=== PATIENT | female | born 1950 | race Caucasian/White ===

== ENCOUNTER 2017-01-23 12:38 | Inpatient (IN) | payer MEDICARE ==
[~2017-01-23] VITALS: Ht 157.4 cm; Wt 107.8 kg
--- NOTE | ~2017-01-23 | PR ---
[place], [place] PROGRESS NOTE NAME: CARMELA COHEN V [facility] #: [id number] UNIT #: [id number] ROOM: 528 DOCTOR: CHIKI ERNANDEZ MD BIRTHDATE: [birth year] DOS: 01/25/2017 SUBJECTIVE: The patient has been admitted to the hospital with pain in her back, on the right side due to the ureteric colic. She is having a stone in her right ureter. She is still having some pain, but there is no nausea, no vomiting, no fever or chills. She is also having history of diabetes mellitus, hypertension, morbid obesity, and neuropathy. Past history of urolithiasis. Her urine culture and sensitivity today did not show any bacteria and her vitamin D level shows patient is having vitamin D deficiency, it is 10.9. I will start the patient on vitamin D 5000 units daily. OBJECTIVE: VITAL SIGNS: Her blood pressure is 128/68, pulse 69, respirations 20, temperature 97.6. HEART: Regular. CHEST: Clear. ABDOMEN: Does not show any tenderness. The patient is on oxygen and not in any distress. She is able to ambulate a little bit. She states she is feeling somewhat better, but still has some pain in the belly. We will be continuing with the present treatment. CHIKI ERNANDEZ MD CM:PNTRANS [id number] CHIKI ERNANDEZ MD 01/25/17 2315 interface
--- NOTE | ~2017-01-23 | PR ---
[place], [place] PROGRESS NOTE NAME: CARMELA COHEN V [facility] #: [id number] UNIT #: [id number] ROOM: 528 DOCTOR: CHIKI ERNANDEZ MD BIRTHDATE: [birth year] DOS: 01/24/2017 SUBJECTIVE: The patient has been admitted to the hospital with right renal colic and she is feeling a little bit better today, not that much pain, no nausea, no vomiting, but when she moves, she feels that she has got some pain in the back, mostly on the right side, and CAT scan of her abdomen showed that the patient has nonobstructive 9 mm stone in the right kidney. PAST MEDICAL HISTORY: The patient has history of diabetes mellitus, hypertension, morbid obesity, neuropathy, and past history of stones in the kidney. PAST SURGICAL HISTORY: Colonoscopy and hysterectomy. SOCIAL HISTORY: Noncontributory. She does not drink or smoke. The patient is not having any fever or chills. She had ultrasound of the gallbladder done, which showed that the patient does not have any gallstones or any obstruction, but she had a small renal cyst. Her CBC is essentially normal. Her lactic acid is 1.8. PHYSICAL EXAMINATION: VITAL SIGNS: Her blood pressure is 141/64, pulse 74, respirations 18, temperature 97.6. HEART: ____. LUNGS: Showing ____ wheeze. ABDOMEN: Does not show any tenderness. The patient is right now stable, not in any distress and we will continue on the medication the patient has been taking. No change for plan in her treatment. The patient is advised to drink a little more water, that may help to remove the stone. CHIKI ERNANDEZ MD CM:PNTRANS [id number] CHIKI ERNANDEZ MD 01/24/17 0939 interface
[~2017-01-23 12:38] MED LIST: ANTIVERT/2525 MG PO; CIPRO250 MG PO; CIPRO500 MG PO; DIFLUCAN150 MG PO; DOXYCYCLINE100 M3 PO; FLOMAX0.4 MG PO; HYDROCODONE BIT1 T11 PO; LABETALOL HCL100 MG PO; LEVEMIR10 ML SC; LISINOPRIL20 MG PO; MEDROL DOSEPAK4 MG PO; METFORMIN1000 MG PO; METFORMIN500 MG PO; NEURONTIN300 MG PO; NORVASC5 MG PO; PERCOCET 325 MG1 TA2 PO; PREDNISONE10 MG PO; PRILOSEC20 MG PO; PYRIDIUM200 MG PO; TRAD5TAB1 PO; TRAMADOL HCL50 MG PO; TRAMADOL50 MG PO; VIBRAMYCIN100 MG PO; ZOFRAN ODT4 MG SL
[2017-01-23 12:54] VITALS: BP 140/74
[2017-01-23 13:37] LABS: BASO % 0.4 % (0.0-1.0); EOS # 0.3 10*3/uL (0.0-0.4); HEMATOCRIT 42.9 % (37.0-47.0); HEMOGLOBIN 13.9 g/dl (12.0-16.0); LYMPH # 1.9 10*3/uL (1.3-4.4); LYMPH % 19.3 % (27.0-41.0); MEAN CELL VOLUME 92.5 fl (81.0-99.0); MEAN CORPUSCULAR HGB CONC 32.4 g/dl (33.0-37.0); MEAN PLATELET VOLUME 11.3 fl (9.6-12.3); MONO # 0.9 10*3/uL (0.1-1.0); MONO % 8.8 % (3.0-9.0); NEUT # 6.9 10*3/uL (2.3-7.9); NEUT % 68.2 % (47.0-73.0); PLATELET COUNT AUTOMATED 241 10*3/uL (130-400); RED BLOOD COUNT 4.64 10*6/uL (4.10-5.10); RED CELL DISTRI WIDTH 13.8 % (0-14.5); WHITE BLOOD COUNT 10.1 10*3/uL (4.8-10.8)
[2017-01-23 13:46] LABS: PROTHROMBIN TIME 10.4 SECONDS (9.0-12.4)
[2017-01-23 14:01] LABS: BILIRUBIN NEGATIVE (NEGATIVE); BLOOD NEGATIVE (NEGATIVE); CLARITY CLEAR (CLEAR); COLOR YELLOW (YELLOW); GLUCOSE 3+ (NEGATIVE); KETONE NEGATIVE (NEGATIVE); LEUKO ESTERASE NEGATIVE (NEGATIVE); NITRITE NEGATIVE (NEGATIVE); PH 5.5 (5.0-9.0); PROTEIN TRACE (NEGATIVE); UROBILINOGEN 0.2 E.U./dl (0.2-1.0)
[2017-01-23 14:06] LABS: ALBUMIN 3.8 gm/dl (3.1-4.5); ALKALINE PHOSPHATASE 87 U/L (45-117); BILIRUBIN, TOTAL 0.8 mg/dl (0.2-1.0); BUN 13 mg/dl (7-24); C-REACTIVE PROTEIN 1.44 MG/DL (0-0.3); CARBON DIOXIDE 28 mmol/L (21-32); CHLORIDE 105 mmol/L (98-107); CPK 108 U/L (26-192); EST GLOM FILT AFRICAN AMERICAN > 60 ml/min; GLUCOSE 291 mg/dL (65-99); MAGNESIUM 2.1 mg/dL (1.5-2.1); POTASSIUM 3.8 mmol/L (3.5-5.1); SGOT/AST 26 IU/L (3-35); SGPT/ALT 43 U/L (12-78); SODIUM 144 mmol/L (136-145); TOTAL PROTEIN 7.4 gm/dL (6.4-8.2)
[2017-01-23 14:07] LABS: TROPONIN I < 0.015 ng/ml (<0.045)
[2017-01-23 14:10] LABS: URINE REFLEX COMMENT YES (NO)
[2017-01-23 15:35] LABS: LA>2 REFLEX 2 HR DRAW NOW
[2017-01-23 15:36] VITALS: BP 156/84
[2017-01-23 16:51] VITALS: BP 155/83
[2017-01-23 17:49] VITALS: BP 145/87
[2017-01-23] MEDS ORDERED: FLOMAX0.4 MG PO (17:58)
[2017-01-23 18:00] VITALS: BP 145/87
[2017-01-24] VITALS: BP 141/64
[2017-01-24 07:08] LABS: BASO % 0.3 % (0.0-1.0); EOS # 0.3 10*3/uL (0.0-0.4); EOS % 2.9 % (1.0-4.0); HEMATOCRIT 41.4 % (37.0-47.0); HEMOGLOBIN 13.2 g/dl (12.0-16.0); LYMPH # 1.6 10*3/uL (1.3-4.4); LYMPH % 15.9 % (27.0-41.0); MEAN CELL VOLUME 93.9 fl (81.0-99.0); MEAN CORPUSCULAR HGB 29.9 pg (27.0-31.0); MEAN CORPUSCULAR HGB CONC 31.9 g/dl (33.0-37.0); MEAN PLATELET VOLUME 11.3 fl (9.6-12.3); MONO # 0.7 10*3/uL (0.1-1.0); MONO % 7.5 % (3.0-9.0); NEUT # 7.2 10*3/uL (2.3-7.9); NEUT % 73.1 % (47.0-73.0); PLATELET COUNT AUTOMATED 242 10*3/uL (130-400); RED BLOOD COUNT 4.41 10*6/uL (4.10-5.10); RED CELL DISTRI WIDTH 13.7 % (0-14.5); WHITE BLOOD COUNT 9.9 10*3/uL (4.8-10.8)
[2017-01-24 07:41] LABS: ALBUMIN 3.5 gm/dl (3.1-4.5); ALKALINE PHOSPHATASE 77 U/L (45-117); BILIRUBIN, TOTAL 0.9 mg/dl (0.2-1.0); BUN 13 mg/dl (7-24); CARBON DIOXIDE 29 mmol/L (21-32); CHLORIDE 105 mmol/L (98-107); EST GLOM FILT AFRICAN AMERICAN > 60 ml/min; GLUCOSE 205 mg/dL (65-99); MAGNESIUM 2.3 mg/dL (1.5-2.1); PHOSPHOROUS 3.4 mg/dL (2.5-4.9); POTASSIUM 3.7 mmol/L (3.5-5.1); PROTHROMBIN TIME 10.7 SECONDS (9.0-12.4); SGOT/AST 24 IU/L (3-35); SGPT/ALT 37 U/L (12-78); SODIUM 144 mmol/L (136-145); TOTAL PROTEIN 6.8 gm/dL (6.4-8.2)
[2017-01-24 08:00] VITALS: BP 140/70
[2017-01-24 12:00] VITALS: BP 135/71
[2017-01-24 16:00] VITALS: BP 129/70
[2017-01-24 20:00] VITALS: BP 138/77
[2017-01-25] VITALS: BP 128/68
[2017-01-25 08:23] VITALS: BP 146/80
[2017-01-25 12:58] VITALS: BP 132/60
[2017-01-25 16:00] VITALS: BP 145/72
[2017-01-25 20:00] VITALS: BP 145/79
[2017-01-26] VITALS: BP 146/79
[2017-01-26 06:26] LABS: BASO % 0.1 % (0.0-1.0); EOS # 0.3 10*3/uL (0.0-0.4); EOS % 3.3 % (1.0-4.0); HEMATOCRIT 38.8 % (37.0-47.0); HEMOGLOBIN 12.6 g/dl (12.0-16.0); LYMPH # 1.5 10*3/uL (1.3-4.4); LYMPH % 17.7 % (27.0-41.0); MEAN CORPUSCULAR HGB 30.2 pg (27.0-31.0); MEAN CORPUSCULAR HGB CONC 32.5 g/dl (33.0-37.0); MEAN PLATELET VOLUME 11.5 fl (9.6-12.3); MONO # 0.8 10*3/uL (0.1-1.0); MONO % 9.2 % (3.0-9.0); NEUT # 5.7 10*3/uL (2.3-7.9); NEUT % 69.2 % (47.0-73.0); PLATELET COUNT AUTOMATED 220 10*3/uL (130-400); RED BLOOD COUNT 4.17 10*6/uL (4.10-5.10); RED CELL DISTRI WIDTH 13.8 % (0-14.5); WHITE BLOOD COUNT 8.2 10*3/uL (4.8-10.8)
[2017-01-26 06:51] LABS: EST GLOM FILT AFRICAN AMERICAN > 60 ml/min
[2017-01-26 08:00] VITALS: BP 151/78
[2017-01-26 12:00] VITALS: BP 142/79
[2017-01-26] MEDS ORDERED: VITAMIN D5000 I3 PO (13:55)
== END 2017-01-26 14:37 | disposition home or self-care (01) | DRG 694 ==
LOC: ED 12:38 → EDHOLD 16:54 → 5E 16:54
PROVIDERS: Emergency Medicine; Internal Medicine
DX: N20.0 Calculus of kidney (principal); E87.2 Acidosis; E11.40 Type 2 diabetes mellitus with diabetic neuropathy, unspecified; K76.0 Fatty (change of) liver, not elsewhere classified; Z68.41 Body mass index [BMI] 40.0-44.9, adult; E66.01 Morbid (severe) obesity due to excess calories; E11.65 Type 2 diabetes mellitus with hyperglycemia; I10 Essential (primary) hypertension; N28.1 Cyst of kidney, acquired; Z90.710 Acquired absence of both cervix and uterus; Z87.891 Personal history of nicotine dependence; Z82.5 Family history of asthma and other chronic lower respiratory diseases; Z83.3 Family history of diabetes mellitus; Z88.6 Allergy status to analgesic agent; Z79.4 Long term (current) use of insulin; Z79.899 Other long term (current) drug therapy; Z79.84 Long term (current) use of oral hypoglycemic drugs

== ENCOUNTER → 2017-03-18 | Day surgery (SDC) | payer MEDICARE ==
[~2017-03-18] VITALS: Ht 157.4 cm; Wt 105.2 kg
[~2017-03-18] MED LIST changes: +VITAMIN D-32000 UNIT PO; +VITAMIN D5000 I3 PO
--- NOTE | ~2017-03-18 | O ---
[place], [place] OPERATIVE NOTE [id number] #: [id number] ROOM: DOCTOR: ISABELA GROSS MD BIRTHDATE: [birth year] DOS: 03/18/2017 PREOPERATIVE DIAGNOSIS: Cataract, left eye. POSTOPERATIVE DIAGNOSIS: Cataract, left eye. OPERATION: Extracapsular cataract extraction by phacoemulsification with posterior chamber intraocular lens implantation, left eye. ANESTHESIA: Monitored standby. OPERATIVE FINDINGS AND PROCEDURE: 2% Xylocaine topical anesthetic gel was applied to the eye in the preop area. The patient was taken to the operating room and prepped and draped in the standard fashion for sterile intraocular surgery. A time out procedure was performed verifying correct patient, correct site and corrects lens with Panda Gross M.D. The operating microscope was swung into position and the lid speculum was inserted. Using a Shivani paracentesis blade, a paracentesis was made through clear cornea. Viscoelastic was used to fill the anterior chamber. Using a metal keratome a 2.4 mm self-sealing clear corneal cataract incision was made temporally at the limbus. Using a pre-bent 25 gauge cystotome needle, a standard continuous curvilinear capsulorrhexis was performed. The anterior capsule was removed with forceps. The lens nucleus was hydrodissected and phacoemulsified in the posterior chamber. Cortical material was removed with the irrigation aspiration hand piece and the posterior capsule was then polished with a curet under irrigation. The posterior chamber and capsular bag were filled with viscoelastic. A posterior chamber intraocular lens manufactured by: Lito, Model #[id number], and 21.0 diopters in strength were then inserted into the posterior chamber and within the capsular bag using the lens cartridge and injector system. Viscoelastic was removed using the irrigation aspiration handpiece. The anterior chamber was filled with balanced salt solution through the paracentesis. Both the paracentesis site and cataract incisions were hydrated with BSS and verified to be water-tight and self-sealing. Cefuroxime 1 mg/0.1 mL was injected into the anterior chamber through the paracentesis site. The incision checked to be water-tight using a Weck-Nevin sponge. The integrity of the cataract wound and ocular tension were checked. Lid speculum and drapes were removed. The patient was transferred from the operating room to the recovery room in satisfactory condition. [place], [place] OPERATIVE NOTE NAME: CARMELA COHEN V UNIT #: [id number] ROOM: DOCTOR: ISABELA GROSS MD BIRTHDATE: [birth year] ISABELA GROSS MD CM:OPRECORD:OPERATIVE NOTE [phone] ISABELA GROSS MD 03/18/17 1052 interface
[2017-03-18 08:30] VITALS: BP 146/82
[2017-03-18 10:32] VITALS: BP 147/83
[2017-03-18 10:45] VITALS: BP 155/88
[2017-03-18 10:53] VITALS: BP 158/83
== END | disposition home or self-care (01) ==
LOC: SDC 03-11 10:15
DX: H26.9 Unspecified cataract (principal); I10 Essential (primary) hypertension; F32.9 Major depressive disorder, single episode, unspecified; E11.40 Type 2 diabetes mellitus with diabetic neuropathy, unspecified; Z90.710 Acquired absence of both cervix and uterus; Z82.49 Family history of ischemic heart disease and other diseases of the circulatory system; Z83.3 Family history of diabetes mellitus; Z82.3 Family history of stroke

== ENCOUNTER 2018-01-16 10:27 | Emergency (ER) | payer MEDICARE ==
[~2018-01-16] VITALS: Ht 157.4 cm; Wt 108.0 kg
[2018-01-16 10:45] LABS: BASO # 0.1 10*3/uL (0.0-0.1); BASO % 0.6 % (0.0-1.0); EOS # 0.4 10*3/uL (0.0-0.4); EOS % 3.9 % (1.0-4.0); HEMATOCRIT 43.8 % (37.0-47.0); HEMOGLOBIN 14.2 g/dl (12.0-16.0); LYMPH # 1.8 10*3/uL (1.3-4.4); LYMPH % 18.1 % (27.0-41.0); MEAN CELL VOLUME 92.8 fl (81.0-99.0); MEAN CORPUSCULAR HGB 30.1 pg (27.0-31.0); MEAN CORPUSCULAR HGB CONC 32.4 g/dl (33.0-37.0); MEAN PLATELET VOLUME 11.2 fl (9.6-12.3); MONO # 0.7 10*3/uL (0.1-1.0); MONO % 6.9 % (3.0-9.0); PLATELET COUNT AUTOMATED 244 10*3/uL (130-400); RED BLOOD COUNT 4.72 10*6/uL (4.10-5.10); RED CELL DISTRI WIDTH 13.4 % (0-14.5); WHITE BLOOD COUNT 10.1 10*3/uL (4.8-10.8)
[2018-01-16 11:02] LABS: ALBUMIN 3.8 gm/dl (3.1-4.5); ALKALINE PHOSPHATASE 71 U/L (45-117); BUN 10 mg/dl (7-24); CHLORIDE 101 mmol/L (98-107); CREATININE 0.94 mg/dL (0.55-1.02); POTASSIUM 3.6 mmol/L (3.5-5.1); SGOT/AST 30 IU/L (3-35); SGPT/ALT 48 U/L (12-78); SODIUM 139 mmol/L (136-145); TOTAL PROTEIN 7.4 gm/dL (6.4-8.2)
== END 2018-01-16 11:33 | disposition home or self-care (01) ==
LOC: ED 10:27
PROVIDERS: Nurse Practitioner Family
DX: E11.65 Type 2 diabetes mellitus with hyperglycemia (principal); I10 Essential (primary) hypertension; E66.01 Morbid (severe) obesity due to excess calories; Z87.891 Personal history of nicotine dependence; Z90.710 Acquired absence of both cervix and uterus; Z98.51 Tubal ligation status; Z90.711 Acquired absence of uterus with remaining cervical stump; Z79.899 Other long term (current) drug therapy; Z88.6 Allergy status to analgesic agent; Z88.8 Allergy status to other drugs, medicaments and biological substances; Z79.4 Long term (current) use of insulin

== ENCOUNTER → 2018-03-18 | Outpatient (CLI) | payer MEDICARE, MEDICAID ==
[~2018-03-18] MED LIST changes: +HUMALOG100 UNIT/2 SC
== END | disposition home or self-care (01) ==
LOC: MAMMO 07:26
DX: Z12.31 Encounter for screening mammogram for malignant neoplasm of breast (principal)

== ENCOUNTER 2018-03-28 19:56 | Emergency (ER) | payer MEDICARE, MEDICAID ==
[~2018-03-28] VITALS: Ht 157.4 cm; Wt 107.5 kg
[2018-03-28 20:25] LABS: BASO # 0.1 10*3/uL (0.0-0.1); BASO % 0.4 % (0.0-1.0); EOS # 0.4 10*3/uL (0.0-0.4); EOS % 2.7 % (1.0-4.0); HEMATOCRIT 43.2 % (37.0-47.0); HEMOGLOBIN 13.8 g/dl (12.0-16.0); LYMPH # 1.4 10*3/uL (1.3-4.4); LYMPH % 9.7 % (27.0-41.0); MEAN CELL VOLUME 92.5 fl (81.0-99.0); MEAN CORPUSCULAR HGB 29.6 pg (27.0-31.0); MEAN CORPUSCULAR HGB CONC 31.9 g/dl (33.0-37.0); MEAN PLATELET VOLUME 11.3 fl (9.6-12.3); MONO # 1.1 10*3/uL (0.1-1.0); MONO % 7.4 % (3.0-9.0); NEUT # 11.8 10*3/uL (2.3-7.9); NEUT % 79.5 % (47.0-73.0); PLATELET COUNT AUTOMATED 259 10*3/uL (130-400); RED BLOOD COUNT 4.67 10*6/uL (4.10-5.10); RED CELL DISTRI WIDTH 13.4 % (0-14.5); WHITE BLOOD COUNT 14.8 10*3/uL (4.8-10.8)
[2018-03-28 20:40] LABS: ALBUMIN 3.9 gm/dl (3.1-4.5); CREATININE 1.37 mg/dL (0.55-1.02); POTASSIUM 3.6 mmol/L (3.5-5.1); TOTAL PROTEIN 7.4 gm/dL (6.4-8.2)
[2018-03-28 21:16] LABS: BILIRUBIN NEGATIVE (NEGATIVE); BLOOD 3+ (NEGATIVE); CLARITY CLOUDY (CLEAR); COLOR YELLOW (YELLOW); GLUCOSE NEGATIVE (NEGATIVE); KETONE NEGATIVE (NEGATIVE); LEUKO ESTERASE 1+ (NEGATIVE); NITRITE NEGATIVE (NEGATIVE); UROBILINOGEN 0.2 E.U./dl (0.2-1.0)
[2018-03-28 21:22] LABS: BACTERIA TRACE; EPITHELIAL CELLS 0-2; RBC TNTC rbc/hpf (0-2); WBC TNTC wbc/hpf (0-5)
== END 2018-03-29 01:06 | disposition short-term general hospital (02) ==
LOC: ED 19:56
PROVIDERS: Student in an Organized Health Care Education/Training Program
DX: N20.9 Urinary calculus, unspecified (principal); E11.65 Type 2 diabetes mellitus with hyperglycemia; I10 Essential (primary) hypertension; Z79.4 Long term (current) use of insulin; Z79.899 Other long term (current) drug therapy; Z79.84 Long term (current) use of oral hypoglycemic drugs; Z90.710 Acquired absence of both cervix and uterus

== ENCOUNTER → 2018-04-20 | Outpatient (CLI) | payer MEDICARE, MEDICAID | END | disposition home or self-care (01) | LOC: RAD 09:24 | DX: N20.0 Calculus of kidney (principal); Z95.828 Presence of other vascular implants and grafts ==

== ENCOUNTER → 2018-05-11 | Outpatient (CLI) | payer MEDICARE, MEDICAID | END | disposition home or self-care (01) | LOC: RAD 09:02 | DX: N20.0 Calculus of kidney (principal) ==

== ENCOUNTER → 2018-05-18 | Outpatient (CLI) | payer MEDICARE, MEDICAID | END | disposition home or self-care (01) | LOC: US 03:35 | DX: N28.1 Cyst of kidney, acquired (principal); N20.0 Calculus of kidney; R31.9 Hematuria, unspecified ==

== ENCOUNTER 2018-06-29 07:50 | Emergency (ER) | payer MEDICARE, MEDICAID ==
[~2018-06-29] VITALS: Ht 157.4 cm; Wt 106.1 kg
[2018-06-29 08:28] LABS: BASO # 0.1 10*3/uL (0.0-0.1); BASO % 0.4 % (0.0-1.0); EOS # 0.3 10*3/uL (0.0-0.4); EOS % 2.2 % (1.0-4.0); HEMATOCRIT 41.7 % (37.0-47.0); HEMOGLOBIN 13.3 g/dl (12.0-16.0); LYMPH # 1.2 10*3/uL (1.3-4.4); LYMPH % 9.6 % (27.0-41.0); MEAN CELL VOLUME 92.1 fl (81.0-99.0); MEAN CORPUSCULAR HGB 29.4 pg (27.0-31.0); MEAN CORPUSCULAR HGB CONC 31.9 g/dl (33.0-37.0); MEAN PLATELET VOLUME 10.8 fl (9.6-12.3); MONO # 0.8 10*3/uL (0.1-1.0); MONO % 6.7 % (3.0-9.0); NEUT # 10.2 10*3/uL (2.3-7.9); NEUT % 80.8 % (47.0-73.0); PLATELET COUNT AUTOMATED 257 10*3/uL (130-400); RED BLOOD COUNT 4.53 10*6/uL (4.10-5.10); WHITE BLOOD COUNT 12.6 10*3/uL (4.8-10.8)
[2018-06-29 08:40] LABS: BUN 15 mg/dl (7-24); CHLORIDE 108 mmol/L (98-107); CREATININE 0.96 mg/dL (0.55-1.02); POTASSIUM 3.3 mmol/L (3.5-5.1); SODIUM 143 mmol/L (136-145)
[2018-06-29 09:00] LABS: BILIRUBIN NEGATIVE (NEGATIVE); BLOOD 1+ (NEGATIVE); CLARITY CLOUDY (CLEAR); COLOR YELLOW (YELLOW); GLUCOSE NEGATIVE (NEGATIVE); KETONE NEGATIVE (NEGATIVE); LEUKO ESTERASE 2+ (NEGATIVE); NITRITE POSITIVE (NEGATIVE); PH 5.5 (5.0-9.0); SPECIFIC GRAVITY 1.025 (1.005-1.030); UROBILINOGEN 0.2 E.U./dl (0.2-1.0)
[2018-06-29 09:10] LABS: BACTERIA 3+
[2018-06-29 09:11] LABS: WBC 51-100 wbc/hpf (0-5)
[2018-06-29 09:17] LABS: WAXY CAST 0-2
[2018-06-29] MEDS ORDERED: LEVAQUIN250 M1 PO (10:50)
== END 2018-06-29 12:37 | disposition home or self-care (01) ==
LOC: ED 07:50
PROVIDERS: Emergency Medicine; Podiatrist Foot & Ankle Surgery
DX: N39.0 Urinary tract infection, site not specified (principal); M25.561 Pain in right knee; M79.672 Pain in left foot; E11.40 Type 2 diabetes mellitus with diabetic neuropathy, unspecified; I10 Essential (primary) hypertension; E66.01 Morbid (severe) obesity due to excess calories; Z88.6 Allergy status to analgesic agent; Z91.048 Other nonmedicinal substance allergy status; Z88.8 Allergy status to other drugs, medicaments and biological substances; Z79.4 Long term (current) use of insulin; Z79.899 Other long term (current) drug therapy; Z87.442 Personal history of urinary calculi; Z90.710 Acquired absence of both cervix and uterus; Z87.891 Personal history of nicotine dependence

== ENCOUNTER → 2018-11-17 | Day surgery (SDC) | payer MEDICARE ==
[~2018-11-17] VITALS: Ht 158.7 cm; Wt 112.5 kg
[~2018-11-17] MED LIST changes: +LEVAQUIN250 M1 PO; -LEVEMIR10 ML SC; +LEVEMIR100 UNIT/1 SC
--- NOTE | ~2018-11-17 | O ---
[place], [place] OPERATIVE NOTE [id number] UN[facility] #: [id number] ROOM: DOCTOR: ISABELA GROSS MD BIRTHDATE: [birth year] DOS: 11/17/2018 PREOPERATIVE DIAGNOSIS: Cataract, right eye. POSTOPERATIVE DIAGNOSIS: Cataract, right eye. OPERATION: Extracapsular cataract extraction by phacoemulsification with posterior chamber intraocular lens implantation, right eye. INTRAOCULAR LENS: Lito, model #AU00T0, 20.5 diopters, right eye. ANESTHESIA: Monitored standby. OPERATIVE FINDINGS AND PROCEDURE: 2% Xylocaine topical anesthetic gel was applied to the eye in the preop area. The patient was taken to the operating room and prepped and draped in the standard fashion for sterile intraocular surgery. A time out procedure was performed verifying correct patient, correct site and corrects lens with Panda Gross M.D. The operating microscope was swung into position and the lid speculum was inserted. Using a Shivani paracentesis blade, a paracentesis was made through clear cornea. Viscoelastic was used to fill the anterior chamber. Using a metal keratome a 2.4 mm self-sealing clear corneal cataract incision was made temporally at the limbus. Using a pre-bent 25 gauge cystotome needle, a standard continuous curvilinear capsulorrhexis was performed. The anterior capsule was removed with forceps. The lens nucleus was hydrodissected and phacoemulsified in the posterior chamber. Cortical material was removed with the irrigation aspiration hand piece and the posterior capsule was then polished with a curet under irrigation. The posterior chamber and capsular bag were filled with viscoelastic. A posterior chamber intraocular lens manufactured by: Lito, Model #AU00T0, and 20.5 diopters in strength were then inserted into the posterior chamber and within the capsular bag using the lens cartridge and injector system. Viscoelastic was removed using the irrigation aspiration handpiece. The anterior chamber was filled with balanced salt solution through the paracentesis. Both the paracentesis site and cataract incisions were hydrated with BSS and verified to be water-tight and self-sealing. Cefuroxime 1 mg/0.1 mL was injected into the anterior chamber through the paracentesis site. The incision checked to be water-tight using a Weck-Nevin sponge. The integrity of the cataract wound and ocular tension were checked. Lid speculum and drapes were removed. The patient was transferred from the operating room to the recovery room in satisfactory condition. [place], [place] OPERATIVE NOTE NAME: CARMELA COHEN V UNIT #: [id number] ROOM: DOCTOR: ISABELA GROSS MD BIRTHDATE: [birth year] ISABELA GROSS MD CM:OPRECORD:OPERATIVE NOTE [id number] ISABELA GROSS MD 11/17/18 1104 interface
[2018-11-17 08:31] VITALS: BP 156/86
[2018-11-17 09:14] VITALS: BP 108/58
[2018-11-17 09:29] VITALS: BP 110/60
[2018-11-17 09:44] VITALS: BP 124/62
== END | disposition home or self-care (01) ==
LOC: SDC 11-11 09:30
DX: H25.811 Combined forms of age-related cataract, right eye (principal); I10 Essential (primary) hypertension; E10.9 Type 1 diabetes mellitus without complications; F32.9 Major depressive disorder, single episode, unspecified; E66.09 Other obesity due to excess calories; Z87.891 Personal history of nicotine dependence; Z79.4 Long term (current) use of insulin; Z90.711 Acquired absence of uterus with remaining cervical stump; Z98.42 Cataract extraction status, left eye; Z98.890 Other specified postprocedural states; Z88.8 Allergy status to other drugs, medicaments and biological substances; Z79.899 Other long term (current) drug therapy; Z87.442 Personal history of urinary calculi; Z68.41 Body mass index [BMI] 40.0-44.9, adult; Z82.49 Family history of ischemic heart disease and other diseases of the circulatory system; Z83.3 Family history of diabetes mellitus

== ENCOUNTER → 2018-12-20 | Outpatient (CLI) | payer MEDICARE ==
[~2018-12-20] MED LIST changes: +KEFLEX500 M1 PO; +NORCO 5-325 TA1 EACH PO; +ZOFRAN4 MG PO
[2018-12-20 08:57] LABS: BASO % 0.4 % (0.0-1.0); EOS # 0.4 10*3/uL (0.0-0.4); EOS % 3.7 % (1.0-4.0); HEMATOCRIT 44.4 % (37.0-47.0); HEMOGLOBIN 13.8 g/dl (12.0-16.0); LYMPH # 1.7 10*3/uL (1.3-4.4); LYMPH % 15.1 % (27.0-41.0); MEAN CELL VOLUME 94.7 fl (81.0-99.0); MEAN CORPUSCULAR HGB 29.4 pg (27.0-31.0); MEAN CORPUSCULAR HGB CONC 31.1 g/dl (33.0-37.0); MEAN PLATELET VOLUME 10.8 fl (9.6-12.3); MONO # 0.8 10*3/uL (0.1-1.0); MONO % 6.8 % (3.0-9.0); NEUT # 8.3 10*3/uL (2.3-7.9); NEUT % 73.6 % (47.0-73.0); PLATELET COUNT AUTOMATED 276 10*3/uL (130-400); RED BLOOD COUNT 4.69 10*6/uL (4.10-5.10); RED CELL DISTRI WIDTH 13.8 % (0-14.5); WHITE BLOOD COUNT 11.3 10*3/uL (4.8-10.8)
[2018-12-20 09:15] LABS: ALBUMIN 3.7 gm/dl (3.1-4.5); CREATININE 1.14 mg/dL (0.55-1.02); POTASSIUM 3.9 mmol/L (3.5-5.1); TOTAL PROTEIN 7.8 gm/dL (6.4-8.2)
== END | disposition home or self-care (01) ==
LOC: LAB 08:27 → CT 09:00
PROVIDERS: Internal Medicine Nephrology
DX: N20.0 Calculus of kidney (principal); K57.30 Diverticulosis of large intestine without perforation or abscess without bleeding; K76.0 Fatty (change of) liver, not elsewhere classified; N28.1 Cyst of kidney, acquired

== ENCOUNTER 2019-01-19 11:10 | Emergency (ER) | payer MEDICARE ==
[~2019-01-19] VITALS: Ht 157.4 cm; Wt 111.6 kg
--- NOTE | ~2019-01-19 | EKG ---
[place], [place] ELECTROCARDIOGRAM REPORT NAME: CARMELA COHEN V UNIT #: [id number] ROOM: DOCTOR: RUPESH DRAFT REPORT BIRTHDATE: [birth year] [facility] Test Date: 2019-01-19 Test Time: 11:28:07 Pat Name: CARMELA COHEN Department: Room: Gender: F Top Cleaner: : 1950 Requested By: DALLAS MCGRATH Order Number: [id number] Reading MD: Newton Urbina Measurements Intervals [place] Rate: 75 P: 22 KS: 135 QRS: 18 QRSD: 86 T: 33 QT: 368 QTc: 411 Interpretive Statements Sinus rhythm Atrial premature complex Low voltage, precordial leads Consider anterior infarct Baseline wander in lead(s) V1 No previous ECG available for comparison Electronically Signed On 01-21-2019 10:51:26 PDT by Newton Urbina CM:EKGRPT:ELECTROCARDIOGRAM REPORT [id number] DALLAS SAXENA DRAFT REPORT DALLAS MCGRATH DO
[~2019-01-19 11:10] MED LIST changes: -KEFLEX500 M1 PO; -NORCO 5-325 TA1 EACH PO; -ZOFRAN4 MG PO
[2019-01-19 11:50] LABS: BASO # 0.1 10*3/uL (0.0-0.1); BASO % 0.4 % (0.0-1.0); EOS # 0.4 10*3/uL (0.0-0.4); EOS % 3.6 % (1.0-4.0); HEMATOCRIT 40.9 % (37.0-47.0); LYMPH # 1.8 10*3/uL (1.3-4.4); LYMPH % 14.7 % (27.0-41.0); MEAN CELL VOLUME 91.7 fl (81.0-99.0); MEAN CORPUSCULAR HGB 29.1 pg (27.0-31.0); MEAN CORPUSCULAR HGB CONC 31.8 g/dl (33.0-37.0); MEAN PLATELET VOLUME 10.7 fl (9.6-12.3); MONO # 0.8 10*3/uL (0.1-1.0); MONO % 6.7 % (3.0-9.0); NEUT # 8.9 10*3/uL (2.3-7.9); NEUT % 74.2 % (47.0-73.0); PLATELET COUNT AUTOMATED 265 10*3/uL (130-400); RED BLOOD COUNT 4.46 10*6/uL (4.10-5.10); RED CELL DISTRI WIDTH 14.1 % (0-14.5)
[2019-01-19 11:59] LABS: ACT PARTIAL THROMBO TIME 23.9 SECONDS (20.8-31.5)
[2019-01-19 12:07] LABS: ALBUMIN 3.7 gm/dl (3.1-4.5); ALKALINE PHOSPHATASE 77 U/L (45-117); BUN 18 mg/dl (7-24); CHLORIDE 110 mmol/L (98-107); CREATININE 1.77 mg/dL (0.55-1.02); LIPASE 325 U/L (73-393); POTASSIUM 4.2 mmol/L (3.5-5.1); SGOT/AST 20 IU/L (3-35); SGPT/ALT 29 U/L (12-78); SODIUM 140 mmol/L (136-145); TOTAL PROTEIN 7.8 gm/dL (6.4-8.2)
[2019-01-19 12:08] LABS: TROPONIN I < 0.015 ng/ml (<0.045)
[2019-01-19 12:36] LABS: BILIRUBIN NEGATIVE (NEGATIVE); BLOOD 3+ (NEGATIVE); CLARITY CLOUDY (CLEAR); COLOR YELLOW (YELLOW); GLUCOSE NEGATIVE (NEGATIVE); KETONE NEGATIVE (NEGATIVE); LEUKO ESTERASE 3+ (NEGATIVE); NITRITE NEGATIVE (NEGATIVE); PH 5.5 (5.0-9.0); UROBILINOGEN 0.2 E.U./dl (0.2-1.0)
[2019-01-19 13:18] LABS: WBC TNTC wbc/hpf (0-5)
[2019-01-19 13:19] LABS: BACTERIA 2+; RBC TNTC rbc/hpf (0-2)
== END 2019-01-19 15:03 | disposition short-term general hospital (02) ==
LOC: ED 11:10
PROVIDERS: Emergency Medicine
DX: N17.9 Acute kidney failure, unspecified (principal); N13.2 Hydronephrosis with renal and ureteral calculous obstruction; E11.40 Type 2 diabetes mellitus with diabetic neuropathy, unspecified; I10 Essential (primary) hypertension; E66.01 Morbid (severe) obesity due to excess calories; Z87.442 Personal history of urinary calculi; Z91.048 Other nonmedicinal substance allergy status; Z88.8 Allergy status to other drugs, medicaments and biological substances; Z79.84 Long term (current) use of oral hypoglycemic drugs; Z79.4 Long term (current) use of insulin; Z90.710 Acquired absence of both cervix and uterus; Z87.891 Personal history of nicotine dependence

== ENCOUNTER → 2019-02-09 | Outpatient (CLI) | payer MEDICARE ==
[~2019-02-09] MED LIST changes: +KEFLEX500 M1 PO; +NORCO 5-325 TA1 EACH PO; +ZOFRAN4 MG PO
[2019-02-09 11:23] LABS: BASO % 0.3 % (0.0-1.0); EOS # 0.4 10*3/uL (0.0-0.4); EOS % 3.7 % (1.0-4.0); HEMATOCRIT 42.2 % (37.0-47.0); HEMOGLOBIN 13.1 g/dl (12.0-16.0); LYMPH # 1.8 10*3/uL (1.3-4.4); LYMPH % 19.1 % (27.0-41.0); MEAN CELL VOLUME 93.6 fl (81.0-99.0); MEAN PLATELET VOLUME 11.4 fl (9.6-12.3); MONO # 0.8 10*3/uL (0.1-1.0); MONO % 8.7 % (3.0-9.0); NEUT # 6.5 10*3/uL (2.3-7.9); NEUT % 67.9 % (47.0-73.0); PLATELET COUNT AUTOMATED 289 10*3/uL (130-400); RED BLOOD COUNT 4.51 10*6/uL (4.10-5.10); RED CELL DISTRI WIDTH 14.1 % (0-14.5); WHITE BLOOD COUNT 9.5 10*3/uL (4.8-10.8)
[2019-02-09 11:27] LABS: BILIRUBIN NEGATIVE (NEGATIVE); BLOOD 3+ (NEGATIVE); CLARITY SL CLOUDY (CLEAR); COLOR YELLOW (YELLOW); GLUCOSE NEGATIVE (NEGATIVE); KETONE NEGATIVE (NEGATIVE); LEUKO ESTERASE TRACE (NEGATIVE); NITRITE NEGATIVE (NEGATIVE); PH 5.5 (5.0-9.0); UROBILINOGEN 0.2 E.U./dl (0.2-1.0)
[2019-02-09 11:44] LABS: BACTERIA 1+; CALCIUM OXALATE CRYSTALS 1+; MUCOUS 1+; RBC 51-100 rbc/hpf (0-2); WBC 41-50 wbc/hpf (0-5)
[2019-02-09 11:52] LABS: ALBUMIN 3.8 gm/dl (3.1-4.5); CREATININE 1.2 mg/dL (0.55-1.02); POTASSIUM 4.1 mmol/L (3.5-5.1); THYROXINE (T4) TOTAL 8.6 ug/dl (4.8-13.9); TOTAL PROTEIN 7.4 gm/dL (6.4-8.2)
== END | disposition home or self-care (01) ==
LOC: LAB 10:37
PROVIDERS: Nurse Practitioner Family
DX: N20.0 Calculus of kidney (principal)

== ENCOUNTER → 2019-02-14 | Outpatient (CLI) | payer MEDICARE | END | disposition home or self-care (01) | LOC: CT 00:02 | DX: N20.0 Calculus of kidney (principal); N20.1 Calculus of ureter; N13.30 Unspecified hydronephrosis; R31.9 Hematuria, unspecified; M54.9 Dorsalgia, unspecified ==

== ENCOUNTER 2019-03-04 17:34 | Emergency (ER) | payer MEDICARE ==
[~2019-03-04] VITALS: Ht 157.4 cm; Wt 108.9 kg
[~2019-03-04 17:34] MED LIST changes: -KEFLEX500 M1 PO; -NORCO 5-325 TA1 EACH PO; -ZOFRAN4 MG PO
[2019-03-04 18:19] LABS: BILIRUBIN NEGATIVE (NEGATIVE); BLOOD 3+ (NEGATIVE); CLARITY CLOUDY (CLEAR); COLOR YELLOW (YELLOW); GLUCOSE NEGATIVE (NEGATIVE); KETONE NEGATIVE (NEGATIVE); LEUKO ESTERASE TRACE (NEGATIVE); NITRITE NEGATIVE (NEGATIVE); PH 5.5 (5.0-9.0); SPECIFIC GRAVITY 1.025 (1.005-1.030); UROBILINOGEN 0.2 E.U./dl (0.2-1.0)
[2019-03-04 18:24] LABS: RBC TNTC rbc/hpf (0-2)
[2019-03-04 18:28] LABS: BASO # 0.1 10*3/uL (0.0-0.1); BASO % 0.4 % (0.0-1.0); EOS # 0.3 10*3/uL (0.0-0.4); EOS % 2.5 % (1.0-4.0); HEMATOCRIT 41.9 % (37.0-47.0); HEMOGLOBIN 13.3 g/dl (12.0-16.0); LYMPH # 1.7 10*3/uL (1.3-4.4); LYMPH % 14.1 % (27.0-41.0); MEAN CELL VOLUME 92.3 fl (81.0-99.0); MEAN CORPUSCULAR HGB 29.3 pg (27.0-31.0); MEAN CORPUSCULAR HGB CONC 31.7 g/dl (33.0-37.0); MEAN PLATELET VOLUME 10.9 fl (9.6-12.3); MONO % 8.6 % (3.0-9.0); NEUT # 8.8 10*3/uL (2.3-7.9); PLATELET COUNT AUTOMATED 254 10*3/uL (130-400); RED BLOOD COUNT 4.54 10*6/uL (4.10-5.10); RED CELL DISTRI WIDTH 14.3 % (0-14.5); WHITE BLOOD COUNT 11.9 10*3/uL (4.8-10.8)
[2019-03-04 18:43] LABS: ALBUMIN 3.4 gm/dl (3.1-4.5); CREATININE 1.39 mg/dL (0.55-1.02); POTASSIUM 3.6 mmol/L (3.5-5.1); TOTAL PROTEIN 6.9 gm/dL (6.4-8.2)
[2019-03-04] MEDS ORDERED: ZOFRAN4 MG PO (20:17)
[2019-03-04] MEDS ORDERED: FLOMAX0.4 MG PO (20:17)
== END 2019-03-04 20:45 | disposition home or self-care (01) ==
LOC: ED 17:34
PROVIDERS: Physician Assistant
DX: N13.2 Hydronephrosis with renal and ureteral calculous obstruction (principal); Z79.899 Other long term (current) drug therapy; Z88.6 Allergy status to analgesic agent; Z87.442 Personal history of urinary calculi; Z87.891 Personal history of nicotine dependence

== ENCOUNTER → 2019-04-06 | Outpatient (CLI) | payer MEDICARE, OTHER ==
[~2019-04-06] MED LIST changes: +KEFLEX500 M1 PO; +NORCO 5-325 TA1 EACH PO; +ZOFRAN4 MG PO
== END | disposition home or self-care (01) ==
LOC: CT 11:30
DX: K76.0 Fatty (change of) liver, not elsewhere classified (principal); K57.30 Diverticulosis of large intestine without perforation or abscess without bleeding; N20.0 Calculus of kidney; R31.9 Hematuria, unspecified; N13.30 Unspecified hydronephrosis; I70.8 Atherosclerosis of other arteries

== ENCOUNTER 2019-05-13 14:52 | Emergency (ER) | payer MEDICARE ==
[~2019-05-13] VITALS: Ht 160 cm; Wt 109.8 kg
[~2019-05-13 14:52] MED LIST changes: -KEFLEX500 M1 PO; -NORCO 5-325 TA1 EACH PO
[2019-05-13 15:19] LABS: BASO % 0.2 % (0.0-1.0); EOS # 0.4 10*3/uL (0.0-0.4); EOS % 2.6 % (1.0-4.0); HEMATOCRIT 44.8 % (37.0-47.0); HEMOGLOBIN 14.3 g/dl (12.0-16.0); LYMPH % 14.2 % (27.0-41.0); MEAN CELL VOLUME 90.3 fl (81.0-99.0); MEAN CORPUSCULAR HGB 28.8 pg (27.0-31.0); MEAN CORPUSCULAR HGB CONC 31.9 g/dl (33.0-37.0); MEAN PLATELET VOLUME 12.3 fl (9.6-12.3); MONO # 0.9 10*3/uL (0.1-1.0); MONO % 6.3 % (3.0-9.0); NEUT # 10.9 10*3/uL (2.3-7.9); NEUT % 76.4 % (47.0-73.0); PLATELET COUNT AUTOMATED 196 10*3/uL (130-400); RED BLOOD COUNT 4.96 10*6/uL (4.10-5.10); RED CELL DISTRI WIDTH 14.4 % (0-14.5); WHITE BLOOD COUNT 14.3 10*3/uL (4.8-10.8)
[2019-05-13 16:05] LABS: BILIRUBIN 1+ (NEGATIVE); BLOOD 3+ (NEGATIVE); CLARITY CLOUDY (CLEAR); COLOR BROWN (YELLOW); GLUCOSE NEGATIVE (NEGATIVE); KETONE NEGATIVE (NEGATIVE); LEUKO ESTERASE TRACE (NEGATIVE); NITRITE NEGATIVE (NEGATIVE); PH 5.5 (5.0-9.0); SPECIFIC GRAVITY >= 1.030 (1.005-1.030); UROBILINOGEN 0.2 E.U./dl (0.2-1.0)
[2019-05-13 16:22] LABS: BACTERIA 1+; RBC TNTC rbc/hpf (0-2)
[2019-05-13 16:42] LABS: ALBUMIN 3.9 gm/dl (3.1-4.5); ALKALINE PHOSPHATASE 69 U/L (45-117); BUN 21 mg/dl (7-24); CHLORIDE 111 mmol/L (98-107); CREATININE 1.09 mg/dL (0.55-1.02); POTASSIUM 3.7 mmol/L (3.5-5.1); SGOT/AST 25 IU/L (3-35); SGPT/ALT 39 U/L (12-78); SODIUM 142 mmol/L (136-145); TOTAL PROTEIN 7.5 gm/dL (6.4-8.2)
[2019-05-13] MEDS ORDERED: NORCO 5-325 TA1 EACH PO (16:48)
[2019-05-13] MEDS ORDERED: KEFLEX500 M1 PO (16:48)
== END 2019-05-13 16:51 | disposition home or self-care (01) ==
LOC: ED 14:52
PROVIDERS: Physician Assistant
DX: N39.0 Urinary tract infection, site not specified (principal); R10.9 Unspecified abdominal pain; R11.2 Nausea with vomiting, unspecified; Z87.442 Personal history of urinary calculi; Z91.048 Other nonmedicinal substance allergy status; Z88.8 Allergy status to other drugs, medicaments and biological substances; Z79.899 Other long term (current) drug therapy; Z79.4 Long term (current) use of insulin; Z87.891 Personal history of nicotine dependence; Z90.710 Acquired absence of both cervix and uterus

== ENCOUNTER → 2019-07-29 | Outpatient (CLI) | payer MEDICARE ==
[~2019-07-29] MED LIST changes: +KEFLEX500 M1 PO; +NORCO 5-325 TA1 EACH PO
== END | disposition home or self-care (01) ==
LOC: CT 08:12
DX: M47.816 Spondylosis without myelopathy or radiculopathy, lumbar region (principal); I70.0 Atherosclerosis of aorta; I25.10 Atherosclerotic heart disease of native coronary artery without angina pectoris

== ENCOUNTER → 2019-08-03 | Outpatient (CLI) | payer MEDICARE | END | disposition home or self-care (01) | LOC: RAD 11:23 | DX: N20.0 Calculus of kidney (principal) ==

== ENCOUNTER → 2019-08-25 | Outpatient (CLI) | payer MEDICARE | END | disposition home or self-care (01) | LOC: RAD 13:15 | DX: N20.0 Calculus of kidney (principal) ==

== ENCOUNTER → 2019-10-28 | Outpatient (CLI) | payer MEDICARE ==
[2019-10-28 09:04] LABS: BASO % 0.4 % (0.0-1.0); EOS # 1.3 10*3/uL (0.0-0.4); HEMATOCRIT 44.2 % (37.0-47.0); HEMOGLOBIN 13.9 g/dl (12.0-16.0); LYMPH # 1.8 10*3/uL (1.3-4.4); MEAN CELL VOLUME 91.9 fl (81.0-99.0); MEAN CORPUSCULAR HGB 28.9 pg (27.0-31.0); MEAN CORPUSCULAR HGB CONC 31.4 g/dl (33.0-37.0); MEAN PLATELET VOLUME 10.9 fl (9.6-12.3); MONO # 0.8 10*3/uL (0.1-1.0); MONO % 6.9 % (3.0-9.0); NEUT # 7.5 10*3/uL (2.3-7.9); NEUT % 65.4 % (47.0-73.0); PLATELET COUNT AUTOMATED 249 10*3/uL (130-400); RED BLOOD COUNT 4.81 10*6/uL (4.10-5.10); RED CELL DISTRI WIDTH 14.6 % (0-14.5); WHITE BLOOD COUNT 11.4 10*3/uL (4.8-10.8)
[2019-10-28 09:07] LABS: BILIRUBIN NEGATIVE (NEGATIVE); BLOOD 3+ (NEGATIVE); CLARITY SL CLOUDY (CLEAR); COLOR YELLOW (YELLOW); GLUCOSE NEGATIVE (NEGATIVE); KETONE NEGATIVE (NEGATIVE); LEUKO ESTERASE NEGATIVE (NEGATIVE); NITRITE NEGATIVE (NEGATIVE); SPECIFIC GRAVITY 1.025 (1.005-1.030); UROBILINOGEN 0.2 E.U./dl (0.2-1.0)
[2019-10-28 09:33] LABS: ALBUMIN 3.3 gm/dl (3.1-4.5); CREATININE 1.1 mg/dL (0.55-1.02); POTASSIUM 3.3 mmol/L (3.5-5.1); THYROXINE (T4) TOTAL 8.8 ug/dl (4.8-13.9)
[2019-10-28 09:48] LABS: RBC TNTC rbc/hpf (0-2); WBC 0-2 wbc/hpf (0-5)
== END | disposition home or self-care (01) ==
LOC: LAB 08:32 → CT 09:00
PROVIDERS: Nurse Practitioner Family
DX: N20.0 Calculus of kidney (principal); R10.9 Unspecified abdominal pain; Z79.899 Other long term (current) drug therapy; Z90.49 Acquired absence of other specified parts of digestive tract

== ENCOUNTER 2019-12-02 08:32 | Emergency (ER) | payer MEDICARE ==
[~2019-12-02] VITALS: Ht 157.4 cm; Wt 108.9 kg
[~2019-12-02 08:32] MED LIST changes: -LABETALOL HCL100 MG PO; +LABETALOL HCL300 MG PO
[2019-12-02 09:31] LABS: BASO % 0.2 % (0.0-1.0); EOS # 0.4 10*3/uL (0.0-0.4); EOS % 2.8 % (1.0-4.0); HEMATOCRIT 47.1 % (37.0-47.0); HEMOGLOBIN 14.6 g/dl (12.0-16.0); LYMPH # 1.5 10*3/uL (1.3-4.4); LYMPH % 12.3 % (27.0-41.0); MEAN CELL VOLUME 91.3 fl (81.0-99.0); MEAN CORPUSCULAR HGB 28.3 pg (27.0-31.0); MEAN PLATELET VOLUME 11.3 fl (9.6-12.3); MONO # 0.9 10*3/uL (0.1-1.0); MONO % 6.9 % (3.0-9.0); NEUT # 9.6 10*3/uL (2.3-7.9); NEUT % 77.4 % (47.0-73.0); PLATELET COUNT AUTOMATED 266 10*3/uL (130-400); RED BLOOD COUNT 5.16 10*6/uL (4.10-5.10); RED CELL DISTRI WIDTH 14.6 % (0-14.5); WHITE BLOOD COUNT 12.4 10*3/uL (4.8-10.8)
[2019-12-02 09:43] LABS: CREATININE 1.17 mg/dL (0.55-1.02); POTASSIUM 3.7 mmol/L (3.5-5.1)
[2019-12-02 10:25] LABS: BILIRUBIN NEGATIVE (NEGATIVE); BLOOD 2+ (NEGATIVE); CLARITY SL CLOUDY (CLEAR); COLOR YELLOW (YELLOW); GLUCOSE NEGATIVE (NEGATIVE); KETONE NEGATIVE (NEGATIVE); LEUKO ESTERASE TRACE (NEGATIVE); NITRITE NEGATIVE (NEGATIVE); PH 6.5 (5.0-9.0); SPECIFIC GRAVITY 1.015 (1.005-1.030); UROBILINOGEN 0.2 E.U./dl (0.2-1.0)
[2019-12-02 10:32] LABS: BACTERIA 2+; RBC 31-40 rbc/hpf (0-2); WBC 21-30 wbc/hpf (0-5)
[2019-12-02 10:33] LABS: CALCIUM OXALATE CRYSTALS 1+
== END 2019-12-02 11:00 | disposition home or self-care (01) ==
LOC: ED 08:32
PROVIDERS: Internal Medicine
DX: N20.0 Calculus of kidney (principal); R11.2 Nausea with vomiting, unspecified; R06.02 Shortness of breath; E66.01 Morbid (severe) obesity due to excess calories; I10 Essential (primary) hypertension; E11.40 Type 2 diabetes mellitus with diabetic neuropathy, unspecified; Z87.891 Personal history of nicotine dependence; Z87.442 Personal history of urinary calculi; Z91.048 Other nonmedicinal substance allergy status; Z79.2 Long term (current) use of antibiotics; Z88.8 Allergy status to other drugs, medicaments and biological substances; Z79.899 Other long term (current) drug therapy; Z79.4 Long term (current) use of insulin; Z90.710 Acquired absence of both cervix and uterus

== ENCOUNTER 2019-12-05 17:03 | Inpatient (IN) | payer MEDICARE ==
[~2019-12-05] VITALS: Ht 158.7 cm; Wt 107.5 kg
[2019-12-05 17:05] VITALS: BP 160/77
[2019-12-05 18:17] LABS: BASO % 0.2 % (0.0-1.0); EOS # 0.5 10*3/uL (0.0-0.4); EOS % 2.8 % (1.0-4.0); HEMATOCRIT 47.1 % (37.0-47.0); HEMOGLOBIN 14.9 g/dl (12.0-16.0); LYMPH # 1.4 10*3/uL (1.3-4.4); LYMPH % 8.2 % (27.0-41.0); MEAN CORPUSCULAR HGB 29.1 pg (27.0-31.0); MEAN CORPUSCULAR HGB CONC 31.6 g/dl (33.0-37.0); MEAN PLATELET VOLUME 11.1 fl (9.6-12.3); MONO # 1.2 10*3/uL (0.1-1.0); MONO % 6.9 % (3.0-9.0); NEUT # 13.9 10*3/uL (2.3-7.9); NEUT % 81.4 % (47.0-73.0); PLATELET COUNT AUTOMATED 291 10*3/uL (130-400); RED BLOOD COUNT 5.12 10*6/uL (4.10-5.10); RED CELL DISTRI WIDTH 14.8 % (0-14.5); WHITE BLOOD COUNT 17.1 10*3/uL (4.8-10.8)
[2019-12-05 18:32] LABS: ACT PARTIAL THROMBO TIME 24.4 SECONDS (20.0-32.1)
[2019-12-05 18:39] LABS: ALBUMIN 3.7 gm/dl (3.1-4.5); ALKALINE PHOSPHATASE 85 U/L (45-117); BUN 18 mg/dl (7-24); CHLORIDE 108 mmol/L (98-107); CREATININE 1.08 mg/dL (0.55-1.02); LIPASE 213 U/L (73-393); POTASSIUM 3.5 mmol/L (3.5-5.1); SGOT/AST 17 IU/L (3-35); SGPT/ALT 24 U/L (12-78); SODIUM 142 mmol/L (136-145); TOTAL PROTEIN 7.6 gm/dL (6.4-8.2); TROPONIN I < 0.015 ng/ml (<0.045)
[2019-12-05 20:08] LABS: BILIRUBIN 1+ (NEGATIVE); CLARITY CLEAR (CLEAR); COLOR YELLOW (YELLOW); GLUCOSE NEGATIVE (NEGATIVE); KETONE 3+ (NEGATIVE)
[2019-12-05 20:09] LABS: BLOOD 3+ (NEGATIVE); LEUKO ESTERASE NEGATIVE (NEGATIVE); NITRITE NEGATIVE (NEGATIVE); SPECIFIC GRAVITY 1.025 (1.005-1.030); UROBILINOGEN 0.2 E.U./dl (0.2-1.0)
[2019-12-05 20:10] LABS: BACTERIA 1+; MUCOUS 1+; RBC 21-30 rbc/hpf (0-2); WBC 0-2 wbc/hpf (0-5)
[2019-12-05 21:50] VITALS: BP 146/76
--- NOTE | 2019-12-05 21:50 | NUR ---
Time: 2149 A 68 year old FEMALE admitted to 5E under services of DR. MARIEL ROSENBAUM,EMILY. Pt. arrived via STRETCHER from ER. Chief complaint: NAUSEA, VOMITING. KAREN NAM
--- NOTE | 2019-12-05 22:34 | NUR ---
HERE TO SEE PT.
--- NOTE | 2019-12-05 23:23 | NUR ---
PT STATES SHE KEPT MILK OF MAG DOWN AND WAS ABLE TO EAT MOST OF BOXED LUNCH PROVIDED. PT UNABLE TO DRINK PRUNE JUICE AND/OR WATER AT THIS TIME. ONLY WANTS TO EAT ICE. WILL MONITOR. CALL LIGHT IN REACH.
[2019-12-05] MEDS ORDERED: VITAMIN D32000 UNI1 PO (23:48)
[2019-12-05] MEDS ORDERED: NOVOLOG FL100 UNIT/2 SQ (23:51)
[2019-12-05] MEDS ORDERED: LANTUS SOL100 UNIT/1 SQ (23:51)
[2019-12-05] MEDS ORDERED: METFORMIN HYD1000 MG PO (23:52)
--- NOTE | 2019-12-05 23:53 | NUR ---
MED REC UP TO DATE PER PT RECALL.
--- NOTE | 2019-12-06 02:44 | NUR ---
PT AWAKE IN BED WATCHING TV. DENIES ANY NEEDS AT PRESENT TIME. WILL MONITOR. CALL LIGHT IN REACH.
--- NOTE | 2019-12-06 06:17 | NUR ---
MOM FROM LAST NIGHT NOT YET EFFECTIVE. PO DULCOLAX ADMINISTERED PER PRN ORDER TO HELP RELIEVE CONSTIPATION. HYPO BSX4 QUADS. PT DENIES PAIN. WILL MONITOR. CALL LIGHT IN REACH. IVF INFUSING.
[2019-12-06 07:10] LABS: BASO % 0.2 % (0.0-1.0); EOS # 0.6 10*3/uL (0.0-0.4); EOS % 4.8 % (1.0-4.0); HEMATOCRIT 40.8 % (37.0-47.0); HEMOGLOBIN 12.9 g/dl (12.0-16.0); LYMPH # 1.9 10*3/uL (1.3-4.4); LYMPH % 15.4 % (27.0-41.0); MEAN CELL VOLUME 92.3 fl (81.0-99.0); MEAN CORPUSCULAR HGB 29.2 pg (27.0-31.0); MEAN CORPUSCULAR HGB CONC 31.6 g/dl (33.0-37.0); MEAN PLATELET VOLUME 11.2 fl (9.6-12.3); MONO # 1.1 10*3/uL (0.1-1.0); MONO % 8.9 % (3.0-9.0); NEUT # 8.8 10*3/uL (2.3-7.9); NEUT % 70.2 % (47.0-73.0); PLATELET COUNT AUTOMATED 238 10*3/uL (130-400); RED BLOOD COUNT 4.42 10*6/uL (4.10-5.10); RED CELL DISTRI WIDTH 14.7 % (0-14.5); WHITE BLOOD COUNT 12.6 10*3/uL (4.8-10.8)
--- NOTE | 2019-12-06 07:20 | NUR ---
PT AMBULATORY IN ROOM TO SHOWER. RESTING BACK IN BED. RESP-EASY AND REGULAR AT THIS TIME. IVF INFUSING WITH NO PROBLEM. NO C/O AT THIS TIME. CALL LIGHT IN REACH. SEE SHIFT ASSESSMENT.
[2019-12-06 07:31] LABS: ALBUMIN 3.1 gm/dl (3.1-4.5); BUN 15 mg/dl (7-24); CHLORIDE 110 mmol/L (98-107); CHOLESTEROL 78 mg/dL (<200); PHOSPHOROUS 2.7 mg/dL (2.5-4.9); POTASSIUM 3.3 mmol/L (3.5-5.1); SGOT/AST 15 IU/L (3-35); SGPT/ALT 20 U/L (12-78); SODIUM 143 mmol/L (136-145)
[2019-12-06 07:39] LABS: ALKALINE PHOSPHATASE 68 U/L (45-117); HDL CHOLESTEROL 27 mg/dl (40-60); LDL CHOLESTEROL 36 mg/dL (9-159); TOTAL PROTEIN 6.2 gm/dL (6.4-8.2); TRIGLYCERIDES 76 mg/dl (<150); VLDL CHOLESTEROL 15 mg/dL (6-40)
[2019-12-06 08:00] VITALS: BP 139/59
--- NOTE | 2019-12-06 08:07 | NUR ---
CALLED DR. FLOYD AWARE HOME MEDICATIONS NEED ORDERED. ORDER TAKEN AND REVIEWED.
[2019-12-06 08:27] LABS: VITAMIN D, 25-HYDROXY 60.1 ng/mL (30-100)
--- NOTE | 2019-12-06 10:00 | NUR ---
RESTING IN BED. RESP-EASY AND REGULAR. IVF INFUSING WITH NO PROBLEM. NO C/O AT THIS TIME. CALL LIGHT IN REACH.
--- NOTE | 2019-12-06 10:30 | NUR ---
Christian Education Director in to talk to patient. Patient states lives at home with her boyfriend. There are 1 steps in the home. Physician: Dr. Hilton Ham Pharmacy: [facility] Home health services: none Patient's level of ADLs: INDEPENDENT Patient has working utilities: yes DME: none Follow-up physician's appointment after d/c: she prefers to make her own follow up appt on discharge Does patient want to access PORTAL?: no Discharge plan discussed with patient. She lives at home with her boyfriend. She is independent in her ADLs and ambulation. Discussed home health care services and she denies any home needs at this time. She states she has an appt with Dr. Humphreys on December 13 to evaluate her kidney stones. She states she has had them in the past. When medically stable she will be discharged to home. She states her boyfriend, Govind, will provide transportation on discharge. CONSUELO TUCKER
--- NOTE | 2019-12-06 11:55 | NUR ---
CALLED DR. GUTIERRES MADE AWARE CONSULT. NPO AFTER MIDNIGHT FOR EGD TOMORROW.
--- NOTE | 2019-12-06 11:58 | NUR ---
PT SITTING UP IN CHAIR. BSG-127, SEE EMAR. NO C/O AT THIS TIME. CALL LIGHT IN REACH.
[2019-12-06 12:00] VITALS: BP 138/72
--- NOTE | 2019-12-06 14:00 | NUR ---
RESTING IN BED. NO C/O AT THIS TIME. CALL LIGHT IN REACH. IVF INFUSING WITHNO PROBLEM. CALL BERTRAND VARGHESE.
[2019-12-06 16:00] VITALS: BP 127/73
--- NOTE | 2019-12-06 16:10 | NUR ---
RESTING IN BED. BSG-78, SEE EMAR. TOLERATED ROUTINE MED WITH NO PROBLEM. CALL LIGHT IN REACH. SEE SHIFT ASSESSMENT.
--- NOTE | 2019-12-06 17:30 | NUR ---
AVILA VAZQUEZ BED. TOLERATED ONE TAB MEDS. IVF INFUSING WTIH NO PROBLEM. CALL LIGHT IN REACH.
[2019-12-06 20:00] VITALS: BP 144/78
[2019-12-07] VITALS (8 sets, daily range): BP systolic 117–154; BP diastolic 64–98
[2019-12-07 06:22] LABS: BASO % 0.3 % (0.0-1.0); EOS # 0.6 10*3/uL (0.0-0.4); EOS % 5.8 % (1.0-4.0); HEMATOCRIT 41.3 % (37.0-47.0); HEMOGLOBIN 12.8 g/dl (12.0-16.0); LYMPH % 18.2 % (27.0-41.0); MEAN CORPUSCULAR HGB 28.8 pg (27.0-31.0); MEAN PLATELET VOLUME 11.7 fl (9.6-12.3); MONO % 9.3 % (3.0-9.0); NEUT # 7.1 10*3/uL (2.3-7.9); NEUT % 65.9 % (47.0-73.0); PLATELET COUNT AUTOMATED 244 10*3/uL (130-400); RED BLOOD COUNT 4.44 10*6/uL (4.10-5.10); RED CELL DISTRI WIDTH 14.9 % (0-14.5); WHITE BLOOD COUNT 10.8 10*3/uL (4.8-10.8)
--- NOTE | 2019-12-07 06:41 | NUR ---
PT STATES SHE PASSED A KIDNEY STONE TODAY. STATES SHE LOST IT SO SHE WAS UNABLE TO SHOW RN.
[2019-12-07 07:00] LABS: BUN 11 mg/dl (7-24); CHLORIDE 113 mmol/L (98-107); POTASSIUM 3.7 mmol/L (3.5-5.1); SODIUM 144 mmol/L (136-145)
[2019-12-07 07:02] LABS: CREATININE 0.99 mg/dL (0.55-1.02)
--- NOTE | 2019-12-07 09:00 | NUR ---
PT SITTING UP IN CHAIR. RESP-EASY AND REGULAR. NO C/O AT THIS TIME. CALL LIGHT IN REACH. SEE SHIFT ASSESSMENT.
--- NOTE | 2019-12-07 12:45 | NUR ---
PT SITTING UP IN RECLINER WITH VISITOR AT HER SIDE. RESP-EASY AND REGULAR. BSG-77, SEE EMAR. IVF INFUSING WITH NO PROBLEM. TOLERATED ROUTINE MED WITH NO PROBLEM. CALL LIGHT IN REACH.
--- NOTE | 2019-12-07 16:00 | NUR ---
SITTING UP IN RECLINER. RESP-EASY AND REGULAR. BSG-150, SEE EMAR. NO C/O AT THIS TIME. CALL LIGHT IN REACH.
[2019-12-08] VITALS: BP 152/71
[2019-12-08 06:49] LABS: BASO % 0.3 % (0.0-1.0); EOS # 1.1 10*3/uL (0.0-0.4); EOS % 9.9 % (1.0-4.0); HEMATOCRIT 42.2 % (37.0-47.0); HEMOGLOBIN 13.1 g/dl (12.0-16.0); LYMPH # 1.8 10*3/uL (1.3-4.4); LYMPH % 16.6 % (27.0-41.0); MEAN CELL VOLUME 92.5 fl (81.0-99.0); MEAN CORPUSCULAR HGB 28.7 pg (27.0-31.0); MEAN PLATELET VOLUME 11.5 fl (9.6-12.3); MONO # 0.8 10*3/uL (0.1-1.0); MONO % 7.4 % (3.0-9.0); NEUT # 7.2 10*3/uL (2.3-7.9); NEUT % 65.4 % (47.0-73.0); PLATELET COUNT AUTOMATED 258 10*3/uL (130-400); RED BLOOD COUNT 4.56 10*6/uL (4.10-5.10); RED CELL DISTRI WIDTH 14.9 % (0-14.5); WHITE BLOOD COUNT 11.1 10*3/uL (4.8-10.8)
[2019-12-08 07:24] LABS: CHLORIDE 113 mmol/L (98-107); POTASSIUM 3.6 mmol/L (3.5-5.1); SODIUM 145 mmol/L (136-145)
[2019-12-08 07:32] LABS: BUN 10 mg/dl (7-24)
[2019-12-08 08:00] VITALS: BP 148/82
--- NOTE | 2019-12-08 08:53 | NUR ---
PT RESTING IN BED/ NO DISTRESS NOTED WILL MONITOR
--- NOTE | 2019-12-08 09:00 | NUR ---
Heel Painter in to see patient. She is sitting up in her bedside chair without distress noted. No new needs or request at this time. She states she feels bloated and after eating has some discomfort. She denies any home needs. When medically stable she will be discharged to home.
--- NOTE | 2019-12-08 10:45 | NUR ---
PT MEDICATED WITH ZOFRAN FOR C/O NAUSEA/ INDIGESTION WILL MONITOR
[2019-12-08 12:00] VITALS: BP 133/55
--- NOTE | 2019-12-08 12:15 | NUR ---
PT STATES THAT AVEL HELPED WILL MONITOR
[2019-12-08 16:00] VITALS: BP 142/73
[2019-12-08 20:00] VITALS: BP 150/75
[2019-12-09] VITALS: BP 144/71
[2019-12-09 08:00] VITALS: BP 148/98
--- NOTE | 2019-12-09 08:00 | NUR ---
IN TO ROOM, PATIENT SITTING UP IN CHAIR, AWAKE, ALERT AND ORIENTED. NO STATED COMPLAINTS AT THIS TIME. DENIES PAIN. RESPIRATIONS ARE EASY AND REGULAR. EDUCATION PROVIDED REGARDING STRESS TEST. CHAIR IN LOCKED POSITION AND CALL LIGHT WITHIN REACH. WILL CONTINUE TO MONITOR.
--- NOTE | 2019-12-09 09:00 | NUR ---
Circular Shear Operator in to see patient. No new needs or request at this time. She denies any home needs. When medically stable she will be discharged to home.
--- NOTE | 2019-12-09 09:30 | NUR ---
PATIENT OFF OF FLOOR FOR STRESS TEST
--- NOTE | 2019-12-09 10:00 | NUR ---
INFORMED CONSENT OBTAINED FOR LEXISCAN NUCLEAR STRESS TEST WITH DR. FLOYD. RESTING EKG NSR WITH A RESTING HR OF 60 WITH BP OF 154/82. LUNGS CLEAR WITH SPO2 OF 96% ON ROOM AIR. PT COMPLETED A 1:00 LEXISCAN PROTOCOL RECEIVING LEXISCAN 0.4 MG IV OVER 10 SECONDS. HAD NO CHEST PAIN OR ANY EKG CHANGES. HAD C/O FEELING LIGHTHEADED AND NAUSEA THAT WAS RELIEVED IN RECOVERY. HAD A PEAK HR OF 95 WITH BP OF 126/72. LAST RECOVERY HR OF 87 WITH BP OF 130/70. AWAITING SCANNING IN STABLE CONDITION.
[2019-12-09] MEDS ORDERED: FLAGYL500 MG PO (10:12)
[2019-12-09] MEDS ORDERED: LIPITOR40 MG PO (10:13)
[2019-12-09] MEDS ORDERED: ASPIRIN ADULT L81 M1 PO (10:13)
[2019-12-09] MEDS ORDERED: OMEPRAZOLE40 MG PO (10:24)
[2019-12-09 13:00] VITALS: BP 137/71
[2019-12-09 16:00] VITALS: BP 146/71
[2019-12-09 20:00] VITALS: BP 150/61
--- NOTE | 2019-12-09 20:00 | NUR ---
PATIENT ASSESSMENT COMPLETED AT THIS TIME WITHOUT INCIDENT. PATIENT SEATED UP IN RECLINER AT THIS TIME AND DENIES ANY CHEST PAIN OR SHORTNESS OF BREATH, OR NEEDS AT THIS TIME. IV SITE ASSESSED AND INTACT AT THIS TIME. CALL LIGHT WITHIN REACH, WILL CONTINUE TO MONITOR.
--- NOTE | 2019-12-09 20:20 | NUR ---
24 HOUR CHART CHECK COMPLETED
[2019-12-10] VITALS: BP 125/70
[2019-12-10 08:00] VITALS: BP 138/76
[2019-12-10 12:00] VITALS: BP 123/54
[2019-12-10 16:00] VITALS: BP 114/83
--- NOTE | 2019-12-10 19:30 | NUR ---
DR. ROCA NOTIFIED OF CONSULT FOR ABNORMAL STRESS TEST FROM AT THIS TIME. NO ORDERS RECEIVED. HE STATED THAT HE WILL SEE THE PATIENT TOMORROW OR THURSDAY.
[2019-12-10 20:00] VITALS: BP 135/60
--- NOTE | 2019-12-10 20:05 | NUR ---
PATIENT ASSESSMENT COMPLETED WITHOUT INCIDENT. PATIENT DENIES ANY CHEST PAIN OR SHORTNESS OF BREATH AT THIS TIME. PATIENT DOES COMPLAIN OF ABDOMINAL DISCOMFORT GENERALIZED, ABDOMEN IS OBESE, GOOD BOWEL SOUNDS X4 QUADRANTS AND PATIENT STATED THAT SHE HAD A BM TODAY THAT WAS FORMED AND NORMAL FOR HER. IV SITE INTACT AND FUNCTIONAL. CALL LIGHT WITHIN REACH WILL CONTINUE TO MONITOR.
[2019-12-11] VITALS: BP 123/62
[2019-12-11 06:56] LABS: CREATININE 1.11 mg/dL (0.55-1.02)
[2019-12-11 07:16] LABS: BASO % 0.3 % (0.0-1.0); EOS # 0.9 10*3/uL (0.0-0.4); EOS % 7.4 % (1.0-4.0); HEMATOCRIT 44.8 % (37.0-47.0); HEMOGLOBIN 13.7 g/dl (12.0-16.0); LYMPH # 1.8 10*3/uL (1.3-4.4); LYMPH % 14.7 % (27.0-41.0); MEAN CELL VOLUME 92.6 fl (81.0-99.0); MEAN CORPUSCULAR HGB 28.3 pg (27.0-31.0); MEAN CORPUSCULAR HGB CONC 30.6 g/dl (33.0-37.0); MEAN PLATELET VOLUME 11.7 fl (9.6-12.3); MONO # 0.8 10*3/uL (0.1-1.0); MONO % 6.3 % (3.0-9.0); NEUT # 8.8 10*3/uL (2.3-7.9); PLATELET COUNT AUTOMATED 259 10*3/uL (130-400); RED BLOOD COUNT 4.84 10*6/uL (4.10-5.10); RED CELL DISTRI WIDTH 14.8 % (0-14.5); WHITE BLOOD COUNT 12.4 10*3/uL (4.8-10.8)
[2019-12-11 08:00] VITALS: BP 149/73
--- NOTE | 2019-12-11 09:27 | NUR ---
DR. ROCA WAS IN TO SEE PATIENT THIS AM. ARRANGEMENTS TO BE MADE FOR LEFT HEART CATH AT [facility] ON Thursday12/13/19 AND PATIENT TO KEEP HER 12/14/19 APPOINTMENT W/NEPHROLOGY FOR KIDNEY STONES. DR. FLOYD NOTIFIED. DR. ROCA'S OFFICE (TAMI BRIDGES) TO BE CONTACTED FOR ARRANGEMENTS.
[2019-12-11 12:00] VITALS: BP 149/74
[2019-12-11 16:00] VITALS: BP 138/71
[2019-12-11 20:00] VITALS: BP 134/65
[2019-12-12] VITALS: BP 140/68
--- NOTE | 2019-12-12 07:30 | NUR ---
IN PT ROOM AT THIS TIME AND SHE HAS NO COMPLAINTS, SHE ONLY WANTS TO KNOW WHEN/WHERE SHE IS GOING FOR HER HEART CATH TOMORROW. I WILL BE CALLING [facility] SOON TO SCHEDULE AN APPOINTMENT AND WILL LET HER KNOW ALL OF THE INFORMATION AFTER I CALL. CALL LIGHT WITHIN REACH, WILL CONTINUE TO MONITOR
[2019-12-12 08:00] VITALS: BP 139/85
--- NOTE | 2019-12-12 09:00 | NUR ---
Senior Tax Specialist in to see patient. No new needs or request at this time. She denies any home needs. Plan is to discharge patient tomorrow to [place].
--- NOTE | 2019-12-12 09:07 | NUR ---
CALLED AND LEFT MESSAGE FOR DR ROCA NURSE TO CALL BACK TO BE ABLE TO SCHEDULE AN APPOINTMENT
--- NOTE | 2019-12-12 10:43 | NUR ---
CALLED AND SPOKE TO ROOF SLATER FOR MAKING HEART CATH APPOINTMENT, SHE IS GOING TO RELAY THE MESSAGE TO THE NURSE AND HAVE HER CALL BACK
--- NOTE | 2019-12-12 10:51 | NUR ---
REPORT CALLED TO CYRUS THE NURSE AT [facility], SHE WANTS PT INFORMATION FAXED TO HER SO SHE CAN WORK ON GETTING AN APPOINTMENT MADE
--- NOTE | 2019-12-12 11:40 | NUR ---
Shift chart check completed.
[2019-12-12 12:00] VITALS: BP 134/69
--- NOTE | 2019-12-12 15:15 | NUR ---
CALLED DR CHIU AND HE STATES TO PUT THE PATIENT ON THE CHIEF TECHNOLOGY OFFICER AND TO HOLD HER LOVENOX
[2019-12-12 16:00] VITALS: BP 125/61
--- NOTE | 2019-12-12 16:26 | NUR ---
GAVE REPORT TO NURSE AT [facility] FOR THE PATIENT.
[2019-12-12 20:00] VITALS: BP 125/72
[2019-12-13] VITALS: BP 148/69
--- NOTE | 2019-12-13 01:41 | NUR ---
24 HOUR CHART CHECK COMPLETE.
--- NOTE | 2019-12-13 08:09 | NUR ---
Discharge instructions reviewed with patient/family. Patient receptive and verbalizes understanding. Follow-up care arranged. Written instructions given to patient/family. PERLA JARRETT
== END 2019-12-13 08:09 | disposition short-term general hospital (02) | DRG 392 ==
LOC: ED 17:03 → EDHOLD 21:08 → 5E 21:08
PROVIDERS: Internal Medicine Nephrology; Physician Assistant; Student in an Organized Health Care Education/Training Program; ADMIT Internal Medicine
DX: K29.70 Gastritis, unspecified, without bleeding (principal); N20.1 Calculus of ureter; N30.01 Acute cystitis with hematuria; Z68.41 Body mass index [BMI] 40.0-44.9, adult; Z79.899 Other long term (current) drug therapy; K52.9 Noninfective gastroenteritis and colitis, unspecified; K21.9 Gastro-esophageal reflux disease without esophagitis; N20.0 Calculus of kidney; K59.00 Constipation, unspecified; D72.9 Disorder of white blood cells, unspecified; D72.810 Lymphocytopenia; R82.2 Biliuria; E66.01 Morbid (severe) obesity due to excess calories; E11.40 Type 2 diabetes mellitus with diabetic neuropathy, unspecified; E11.22 Type 2 diabetes mellitus with diabetic chronic kidney disease; I12.9 Hypertensive chronic kidney disease with stage 1 through stage 4 chronic kidney disease, or unspecified chronic kidney disease; N18.3 Chronic kidney disease, stage 3 (moderate); I25.9 Chronic ischemic heart disease, unspecified; K76.0 Fatty (change of) liver, not elsewhere classified; R16.1 Splenomegaly, not elsewhere classified; E53.8 Deficiency of other specified B group vitamins; E87.6 Hypokalemia; R07.2 Precordial pain; E78.5 Hyperlipidemia, unspecified; Z79.4 Long term (current) use of insulin; Z82.49 Family history of ischemic heart disease and other diseases of the circulatory system; Z87.440 Personal history of urinary (tract) infections; Z88.6 Allergy status to analgesic agent; Z88.8 Allergy status to other drugs, medicaments and biological substances; Z91.09 Other allergy status, other than to drugs and biological substances; Z90.710 Acquired absence of both cervix and uterus; Z87.891 Personal history of nicotine dependence; Z83.3 Family history of diabetes mellitus; Z82.3 Family history of stroke; Z84.89 Family history of other specified conditions; Z87.442 Personal history of urinary calculi

== ENCOUNTER → 2019-12-26 | Outpatient (CLI) | payer MEDICARE ==
[~2019-12-26] MED LIST changes: +ASPIRIN ADULT L81 M1 PO; +FLAGYL500 MG PO; +LANTUS SOL100 UNIT/1 SQ; +LIPITOR40 MG PO; +METFORMIN HYD1000 MG PO; +NOVOLOG FL100 UNIT/2 SQ; +OMEPRAZOLE40 MG PO; +VITAMIN D32000 UNI1 PO
== END | disposition home or self-care (01) ==
LOC: CT 12-23 11:00
DX: N20.0 Calculus of kidney (principal); N28.1 Cyst of kidney, acquired; K57.30 Diverticulosis of large intestine without perforation or abscess without bleeding; M47.815 Spondylosis without myelopathy or radiculopathy, thoracolumbar region; Z90.710 Acquired absence of both cervix and uterus

== ENCOUNTER → 2020-03-09 | Outpatient (CLI) | payer MEDICARE | END | disposition home or self-care (01) | LOC: RAD 14:35 | DX: N20.0 Calculus of kidney (principal) ==

== ENCOUNTER 2020-05-22 10:00 | Inpatient (IN) | payer MEDICARE, MEDICAID ==
[~2020-05-22] VITALS: Ht 158.7 cm; Wt 108.0 kg
[2020-05-22 10:05] VITALS: BP 154/90
[2020-05-22 11:11] LABS: BASO % 0.1 % (0.0-1.0); EOS # 0.2 10*3/uL (0.0-0.4); EOS % 1.4 % (1.0-4.0); HEMATOCRIT 48.6 % (37.0-47.0); LYMPH # 1.3 10*3/uL (1.3-4.4); LYMPH % 7.9 % (27.0-41.0); MEAN CELL VOLUME 90.3 fl (81.0-99.0); MEAN CORPUSCULAR HGB 28.6 pg (27.0-31.0); MEAN CORPUSCULAR HGB CONC 31.7 g/dl (33.0-37.0); MEAN PLATELET VOLUME 10.7 fl (9.6-12.3); MONO # 0.9 10*3/uL (0.1-1.0); MONO % 5.5 % (3.0-9.0); NEUT # 13.5 10*3/uL (2.3-7.9); NEUT % 84.7 % (47.0-73.0); PLATELET COUNT AUTOMATED 269 10*3/uL (130-400); RED BLOOD COUNT 5.38 10*6/uL (4.10-5.10); RED CELL DISTRI WIDTH 13.9 % (0-14.5); WHITE BLOOD COUNT 15.9 10*3/uL (4.8-10.8)
[2020-05-22 11:33] LABS: ALBUMIN 3.7 gm/dl (3.1-4.5); CREATININE 1.23 mg/dL (0.55-1.02); POTASSIUM 3.9 mmol/L (3.5-5.1)
[2020-05-22 12:34] LABS: CLARITY SL CLOUDY (CLEAR); COLOR YELLOW (YELLOW)
[2020-05-22 12:35] LABS: BILIRUBIN NEGATIVE (NEGATIVE); BLOOD TRACE-INTACT (NEGATIVE); GLUCOSE NEGATIVE (NEGATIVE); KETONE NEGATIVE (NEGATIVE); NITRITE NEGATIVE (NEGATIVE); UROBILINOGEN 0.2 E.U./dl (0.2-1.0)
[2020-05-22 12:36] LABS: LEUKO ESTERASE TRACE (NEGATIVE)
[2020-05-22 13:05] LABS: BACTERIA 2+; URIC ACID CRYSTALS 2+
--- NOTE | 2020-05-22 18:00 | NUR ---
UNABLE TO TAKE PT UPSTAIRS, PT IN ULTRASOUND.
[2020-05-22 18:20] VITALS: BP 151/83
--- NOTE | 2020-05-22 18:20 | NUR ---
Time: 1819 A 69 year old FEMALE admitted to 5E under services of DR. MARIEL ROSENBAUM,[facility]. Pt. arrived via stretcher from ER. Chief complaint: NAUSEA/VOMITING. TELE MONITOR APPLIED ORDER RECEIVED CRISTIANA HATCH
[2020-05-22] MEDS ORDERED: FUROSEMIDE40 MG PO (18:26)
[2020-05-22] MEDS ORDERED: TRULICITY1.5 MG/0.5 SC (18:29)
[2020-05-22] MEDS ORDERED: LOSARTAN POTASS50 M1 PO (18:30)
--- NOTE | 2020-05-22 18:36 | NUR ---
MED REC UPDATED VIA LIST FROM HOME AND CLAIM HISTORY.
--- NOTE | 2020-05-22 19:03 | NUR ---
DR. SINGH AWARE OF CONSULT. ORDER FOR EGD TOMORROW. NPO MIDNIGHT.
[2020-05-22 20:00] VITALS: BP 151/83
--- NOTE | 2020-05-22 20:43 | NUR ---
NOTIFIED DR. SINGH AT THIS TIME OF PATIENTS GALLBLADDER ULTRASOUND. HE STATED HE WOULD STILL LIKE TO SCOPE THE PATIENT TOMORROW. AND THEN POSSIBLY TAKE HER BACK FOR SURGERY ON THURSDAY IF NEEDED
[2020-05-23] VITALS (9 sets, daily range): BP systolic 133–150; BP diastolic 7–77
--- NOTE | 2020-05-23 03:41 | NUR ---
PATIENT SLEEPING, NO DISTRESS NOTED. BREATHING IS EASY AND REGULAR. IV FLUIDS RUNNING PER ORDER. CALL LIGHT WITHIN REACH, WILL MONITOR
--- NOTE | 2020-05-23 03:47 | NUR ---
24 HR chart check completed.
--- NOTE | 2020-05-23 06:40 | NUR ---
PATIENT TO SURGERY AT THIS TIME
[2020-05-23 07:01] LABS: BASO % 0.2 % (0.0-1.0); EOS # 0.4 10*3/uL (0.0-0.4); EOS % 4.2 % (1.0-4.0); HEMATOCRIT 43.8 % (37.0-47.0); LYMPH # 2.1 10*3/uL (1.3-4.4); LYMPH % 20.8 % (27.0-41.0); MEAN CELL VOLUME 91.8 fl (81.0-99.0); MEAN CORPUSCULAR HGB 28.5 pg (27.0-31.0); MEAN CORPUSCULAR HGB CONC 31.1 g/dl (33.0-37.0); MEAN PLATELET VOLUME 10.6 fl (9.6-12.3); MONO # 0.7 10*3/uL (0.1-1.0); MONO % 7.3 % (3.0-9.0); NEUT # 6.8 10*3/uL (2.3-7.9); NEUT % 67.3 % (47.0-73.0); PLATELET COUNT AUTOMATED 263 10*3/uL (130-400); RED BLOOD COUNT 4.77 10*6/uL (4.10-5.10); RED CELL DISTRI WIDTH 14.1 % (0-14.5); WHITE BLOOD COUNT 10.1 10*3/uL (4.8-10.8)
[2020-05-23 07:13] LABS: ACT PARTIAL THROMBO TIME 26.5 SECONDS (20.0-32.1); INTERNATIONAL NORM RATIO 1.1 (2.0-3.5)
[2020-05-23 07:17] LABS: ALBUMIN 3.3 gm/dl (3.1-4.5); CREATININE 1.2 mg/dL (0.55-1.02); POTASSIUM 3.9 mmol/L (3.5-5.1); TOTAL PROTEIN 6.7 gm/dL (6.4-8.2)
[2020-05-23 07:19] LABS: FREE T4 0.89 ng/dl (0.76-1.46)
[2020-05-23 07:23] LABS: THYROID STIM HORMONE (HS) 1.03 uIU/ml (0.358-4.75)
--- NOTE | 2020-05-23 07:46 | NUR ---
BLOOD SUGAR TAKEN FROM [facility]. BS 141
[2020-05-23 07:50] LABS: VITAMIN D, 25-HYDROXY 50.3 ng/mL (30-100)
--- NOTE | 2020-05-23 08:00 | NUR ---
PT REMAINS IN SURGERY
--- NOTE | 2020-05-23 09:00 | NUR ---
Senior Materials Planner in to talk to patient. Patient states lives at home with her boyfriend. There are 1 steps in the home. Physician: Dr. Hilton Ham Pharmacy: [facility] Home health services: none Patient's level of ADLs: INDEPENDENT Patient has working utilities: yes DME: none Follow-up physician's appointment after d/c: she prefers to make her own follow up appt upon discharge Does patient want to access PORTAL?: no Discharge plan discussed with patient. She is sitting up in her bedside chair. She lives at home with her boyfriend. She is independent in her ADLs and ambulation. Discussed home health care services and she declines. CM will continue to follow for any discharge planning needs. When medically stable she will be discharged to home. She states her boyfriend, Govind, will provide transportation on discharge. CONSUELO TUCKER
--- NOTE | 2020-05-23 15:00 | NUR ---
PATIENT RETURNED FROM TEST. IV WAS REPLACED DUE TO LEAKING AT ORIGINAL SITE. DR. SINGH ORDERED NPO AFTER MN FOR AM SURGERY. PATIENT CAN HAVE DINNER TODAY.
--- NOTE | 2020-05-23 19:58 | NUR ---
MOVED TO ROOM 512-1 FROM [facility] WITH BELONGINGS.
--- NOTE | 2020-05-23 21:23 | NUR ---
CALLED AND SPOKE WITH DR. SINGH AND NOTIFIED HIM OF HIDA SCAN RESULTS. HE STATED KEEP PATIENT ON SCHEDULE AND HE WILL SPEAK WITH HER TOMORROW.
[2020-05-24] VITALS (10 sets, daily range): BP systolic 142–179; BP diastolic 65–85
--- NOTE | 2020-05-24 04:21 | NUR ---
24 HR chart check completed.
[2020-05-24 06:41] LABS: ALBUMIN 3.1 gm/dl (3.1-4.5); CREATININE 1.17 mg/dL (0.55-1.02); POTASSIUM 4.1 mmol/L (3.5-5.1); TOTAL PROTEIN 6.6 gm/dL (6.4-8.2)
--- NOTE | 2020-05-24 09:00 | NUR ---
CM in to see patient. No new needs or request at this time. Awaiting surgery. CM will continue to follow for any discharge planning needs. When medically stable she will be discharged to home. She declines any home health care services.
--- NOTE | 2020-05-24 09:19 | NUR ---
TAKEN TO OR VIA BED
--- NOTE | 2020-05-24 16:07 | NUR ---
UP INTO CHAIR. ENCOURAGED USE OF INCENTIVE SPIROMETRY.
--- NOTE | 2020-05-24 16:59 | NUR ---
EATING DINNER. COMPLAINS OF ABDOMINAL TENDERNESS. IVF'S INFUSING INTO LEFT ARM WITHOUT DIFFICULTY.
--- NOTE | 2020-05-24 21:20 | NUR ---
PATIENT JUST HAD EATEN BOX LUNCH WITH COOKIES AND TURKEY SANDWICH, APPLESAUCE. BSG 174. PATIENT REFUSED INSULIN COVERAGE STATED "IT'LL GO DOWN".
--- NOTE | 2020-05-24 23:32 | NUR ---
PT. VOIDED AND HAD KIDNEY STONES. URINE STRAINED AND SEVERAL STONES NOTED ONE LARGE STONE AND MULTIPLE TINY ORANGE STONE. CALLED DR. TOTH AND NOTIFIED HIM OF THIS AND THAT PATIENT HAS A HISTORY OF THIS AND ORDERS RECEIVED TO SEND STONES TO LAB FOR ANALYSIS.
[2020-05-25] VITALS: BP 148/61
--- NOTE | 2020-05-25 01:18 | NUR ---
24 HR chart check completed.
[2020-05-25 06:17] LABS: BASO % 0.1 % (0.0-1.0); EOS % 0.2 % (1.0-4.0); HEMATOCRIT 39.5 % (37.0-47.0); LYMPH # 1.3 10*3/uL (1.3-4.4); LYMPH % 10.5 % (27.0-41.0); MEAN CELL VOLUME 91.6 fl (81.0-99.0); MEAN CORPUSCULAR HGB CONC 31.6 g/dl (33.0-37.0); MEAN PLATELET VOLUME 11.3 fl (9.6-12.3); MONO % 7.8 % (3.0-9.0); NEUT # 9.9 10*3/uL (2.3-7.9); NEUT % 80.7 % (47.0-73.0); PLATELET COUNT AUTOMATED 241 10*3/uL (130-400); RED BLOOD COUNT 4.31 10*6/uL (4.10-5.10); RED CELL DISTRI WIDTH 14.1 % (0-14.5); WHITE BLOOD COUNT 12.3 10*3/uL (4.8-10.8)
[2020-05-25 06:43] LABS: ALBUMIN 2.9 gm/dl (3.1-4.5); CREATININE 1.28 mg/dL (0.55-1.02); POTASSIUM 3.9 mmol/L (3.5-5.1); TOTAL PROTEIN 6.3 gm/dL (6.4-8.2)
--- NOTE | 2020-05-25 08:35 | NUR ---
Dr. Owens called in to check on pt. States he is not coming in today. Updated on pt, notified that pt states she is feeling well and hopes to be dc today. Dr. Owens states pt can go home from his standpoint. States to notify primary team. States pt can have norco to go home on and po ace.
--- NOTE | 2020-05-25 08:44 | NUR ---
Spoke with Dr. Bowers resident with Dr. Ham. Notified of Dr. Owens's statements regarding ok to dc and jose c for dc.
--- NOTE | 2020-05-25 09:00 | NUR ---
CM in to see patient. No new needs or request at this time. She is sitting in the bedside chair. Discussed home health care services and she declines. CM will continue to follow for any discharge planning needs. When medically stable she will be discharged to home.
[2020-05-25 12:00] VITALS: BP 166/75
[2020-05-25] MEDS ORDERED: NORCO 5-325 TA1 EACH PO (14:07)
[2020-05-25] MEDS ORDERED: PROTONIX40 MG PO (14:07)
[2020-05-25] MEDS ORDERED: COLACE100 MG PO (14:07)
--- NOTE | 2020-05-25 14:20 | NUR ---
Discharge instructions reviewed with patient. Patient receptive and verbalizes understanding. Follow-up care arranged. Written instructions given to patient. LUCY COSME
--- NOTE | 2020-05-25 14:24 | NUR ---
Pt dc via wheelchair. Pt boyfriend is picking her up out front. States he is waiting.
== END 2020-05-25 14:24 | disposition home or self-care (01) | DRG 853 ==
LOC: ED 10:00 → EDHOLD 16:38 → 5E 16:38 → EDHOLD 16:38 → 5E 17:34
PROVIDERS: Internal Medicine; Nurse Practitioner Family; Student in an Organized Health Care Education/Training Program; ADMIT Internal Medicine
PROC: 0DB78ZX Excision of Stomach, Pylorus, Via Natural or Artificial Opening Endoscopic, Diagnostic (ICD-10-PCS; 2020-05-23)
PROC: 0FT44ZZ Resection of Gallbladder, Percutaneous Endoscopic Approach (ICD-10-PCS; principal; 2020-05-24)
DX: A41.9 Sepsis, unspecified organism (principal); J96.00 Acute respiratory failure, unspecified whether with hypoxia or hypercapnia; N17.0 Acute kidney failure with tubular necrosis; N39.0 Urinary tract infection, site not specified; K92.1 Melena; Z68.41 Body mass index [BMI] 40.0-44.9, adult; K81.0 Acute cholecystitis; E44.1 Mild protein-calorie malnutrition; K92.0 Hematemesis; N20.0 Calculus of kidney; A08.4 Viral intestinal infection, unspecified; E87.8 Other disorders of electrolyte and fluid balance, not elsewhere classified; R31.9 Hematuria, unspecified; E53.8 Deficiency of other specified B group vitamins; K21.9 Gastro-esophageal reflux disease without esophagitis; E66.9 Obesity, unspecified; E11.42 Type 2 diabetes mellitus with diabetic polyneuropathy; I12.9 Hypertensive chronic kidney disease with stage 1 through stage 4 chronic kidney disease, or unspecified chronic kidney disease; E11.22 Type 2 diabetes mellitus with diabetic chronic kidney disease; N18.3 Chronic kidney disease, stage 3 (moderate); E11.65 Type 2 diabetes mellitus with hyperglycemia; Z83.3 Family history of diabetes mellitus; Z88.6 Allergy status to analgesic agent; Z88.8 Allergy status to other drugs, medicaments and biological substances; Z79.4 Long term (current) use of insulin; Z79.899 Other long term (current) drug therapy

== ENCOUNTER 2020-06-09 17:09 | Emergency (ER) | payer MEDICARE, MEDICAID ==
[~2020-06-09 17:09] MED LIST changes: +COLACE100 MG PO; +FUROSEMIDE40 MG PO; +LOSARTAN POTASS50 M1 PO; +PROTONIX40 MG PO; +TRULICITY1.5 MG/0.5 SC
[2020-06-09 17:43] LABS: BILIRUBIN NEGATIVE; BLOOD NEGATIVE (NEGATIVE); CLARITY CLEAR (CLEAR); COLOR YELLOW (YELLOW); GLUCOSE NEGATIVE; KETONE NEGATIVE; LEUKO ESTERASE 2+ (NEGATIVE); NITRITE NEGATIVE (NEGATIVE); PH 5.5 (4.5-8.0)
[2020-06-09 17:50] LABS: BACTERIA 1+; CALCIUM OXALATE CRYSTALS 1+; RBC 0-2 rbc/hpf (0-2); WBC TNTC wbc/hpf (0-5)
[2020-06-09 19:38] LABS: BASO # 0.1 10*3/uL (0.0-0.1); BASO % 0.4 % (0.0-1.0); EOS # 0.6 10*3/uL (0.0-0.4); EOS % 4.7 % (1.0-4.0); HEMATOCRIT 44.1 % (37.0-47.0); LYMPH # 2.1 10*3/uL (1.3-4.4); LYMPH % 17.2 % (27.0-41.0); MEAN CELL VOLUME 90.2 fl (81.0-99.0); MEAN CORPUSCULAR HGB 28.6 pg (27.0-31.0); MEAN CORPUSCULAR HGB CONC 31.7 g/dl (33.0-37.0); MEAN PLATELET VOLUME 10.7 fl (9.6-12.3); MONO # 0.9 10*3/uL (0.1-1.0); MONO % 7.3 % (3.0-9.0); NEUT # 8.4 10*3/uL (2.3-7.9); NEUT % 70.1 % (47.0-73.0); PLATELET COUNT AUTOMATED 273 10*3/uL (130-400); RED BLOOD COUNT 4.89 10*6/uL (4.10-5.10); RED CELL DISTRI WIDTH 14.2 % (0-14.5); WHITE BLOOD COUNT 12.1 10*3/uL (4.8-10.8)
[2020-06-09 19:56] LABS: ALBUMIN 3.5 gm/dl (3.1-4.5); ALKALINE PHOSPHATASE 88 U/L (45-117); BUN 18 mg/dl (7-24); CHLORIDE 111 mmol/L (98-107); CREATININE 1.08 mg/dL (0.55-1.02); POTASSIUM 3.6 mmol/L (3.5-5.1); SGOT/AST 20 IU/L (3-35); SGPT/ALT 34 U/L (12-78); SODIUM 139 mmol/L (136-145); TOTAL PROTEIN 7.1 gm/dL (6.4-8.2)
== END 2020-06-10 00:57 | disposition short-term general hospital (02) ==
LOC: ED 17:09
PROVIDERS: Emergency Medicine; Nurse Practitioner
DX: N39.0 Urinary tract infection, site not specified (principal); N20.0 Calculus of kidney; N28.1 Cyst of kidney, acquired; Z88.6 Allergy status to analgesic agent; Z88.8 Allergy status to other drugs, medicaments and biological substances; Z79.899 Other long term (current) drug therapy; Z79.4 Long term (current) use of insulin

== ENCOUNTER → 2020-06-27 | Outpatient (CLI) | payer MEDICARE, MEDICAID ==
[2020-06-27 12:44] LABS: BASO % 0.3 % (0.0-1.0); EOS # 0.3 10*3/uL (0.0-0.4); EOS % 3.5 % (1.0-4.0); HEMATOCRIT 44.2 % (37.0-47.0); LYMPH # 1.8 10*3/uL (1.3-4.4); LYMPH % 18.9 % (27.0-41.0); MEAN CELL VOLUME 93.1 fl (81.0-99.0); MEAN CORPUSCULAR HGB 28.6 pg (27.0-31.0); MEAN CORPUSCULAR HGB CONC 30.8 g/dl (33.0-37.0); MEAN PLATELET VOLUME 11.5 fl (9.6-12.3); MONO # 0.8 10*3/uL (0.1-1.0); MONO % 8.4 % (3.0-9.0); NEUT # 6.6 10*3/uL (2.3-7.9); NEUT % 68.7 % (47.0-73.0); PLATELET COUNT AUTOMATED 253 10*3/uL (130-400); RED BLOOD COUNT 4.75 10*6/uL (4.10-5.10); RED CELL DISTRI WIDTH 14.4 % (0-14.5); WHITE BLOOD COUNT 9.6 10*3/uL (4.8-10.8)
[2020-06-27 13:03] LABS: BILIRUBIN NEGATIVE; BLOOD 3+ (NEGATIVE); CLARITY TURBID (CLEAR); COLOR RED (YELLOW); GLUCOSE NEGATIVE; KETONE NEGATIVE; LEUKO ESTERASE 2+ (NEGATIVE); NITRITE NEGATIVE (NEGATIVE)
[2020-06-27 13:05] LABS: RBC TNTC rbc/hpf (0-2)
[2020-06-27 13:10] LABS: ALBUMIN 3.4 gm/dl (3.1-4.5); CREATININE 1.48 mg/dL (0.55-1.02); POTASSIUM 4.1 mmol/L (3.5-5.1); TOTAL PROTEIN 7.3 gm/dL (6.4-8.2)
== END | disposition home or self-care (01) ==
LOC: LAB 11:51
PROVIDERS: ATTEND Urology
DX: N28.1 Cyst of kidney, acquired (principal); R31.9 Hematuria, unspecified; R10.9 Unspecified abdominal pain

== ENCOUNTER → 2020-09-10 | Outpatient (CLI) | payer MEDICARE, MEDICAID | END | disposition home or self-care (01) | LOC: CT 09:55 | PROVIDERS: ATTEND Urology | DX: N20.0 Calculus of kidney (principal); I31.3 Pericardial effusion (noninflammatory); K76.0 Fatty (change of) liver, not elsewhere classified; K44.9 Diaphragmatic hernia without obstruction or gangrene; K57.30 Diverticulosis of large intestine without perforation or abscess without bleeding; M47.816 Spondylosis without myelopathy or radiculopathy, lumbar region; M47.814 Spondylosis without myelopathy or radiculopathy, thoracic region; Z90.49 Acquired absence of other specified parts of digestive tract ==

== ENCOUNTER → 2020-11-07 | Outpatient (CLI) | payer MEDICARE, MEDICAID ==
[~2020-11-07] MED LIST changes: +ASPIRIN ADULT L81 M2 PO; +ATORVASTATIN CA40 M1 PO; +CEFTRIAXONE1 GM IJ; +CLOPIDOGREL75 MG PO; +DECADRON4 MG PO; +OMNICEF300 MG PO; +POTASSIUM CITR10 ME1 PO; +REGLAN5 MG PO; +VITAMIN B121000 MC1 PO; +VITAMIN D350 MC2 PO
== END | disposition home or self-care (01) ==
LOC: COVID19 09:28
PROVIDERS: ATTEND Internal Medicine
DX: U07.1 COVID-19 (principal)

== ENCOUNTER 2020-11-13 09:08 | Inpatient (IN) | payer MEDICARE, MEDICAID ==
[~2020-11-13] VITALS: Ht 157.5 cm
[~2020-11-13 09:08] MED LIST changes: -ASPIRIN ADULT L81 M2 PO; -ATORVASTATIN CA40 M1 PO; -CEFTRIAXONE1 GM IJ; -CLOPIDOGREL75 MG PO; -DECADRON4 MG PO; -OMNICEF300 MG PO; -POTASSIUM CITR10 ME1 PO; -REGLAN5 MG PO; -VITAMIN B121000 MC1 PO; -VITAMIN D350 MC2 PO
[2020-11-13 09:16] VITALS: BP 159/84
[2020-11-13 09:46] LABS: EOS % 0.2 % (1.0-4.0); HEMATOCRIT 44.4 % (37.0-47.0); LYMPH % 16.5 % (27.0-41.0); MEAN CELL VOLUME 89.2 fl (81.0-99.0); MEAN CORPUSCULAR HGB 27.5 pg (27.0-31.0); MEAN CORPUSCULAR HGB CONC 30.9 g/dl (33.0-37.0); MONO # 0.5 10*3/uL (0.1-1.0); NEUT # 4.5 10*3/uL (2.3-7.9); NEUT % 74.1 % (47.0-73.0); PLATELET COUNT AUTOMATED 174 10*3/uL (130-400); RED BLOOD COUNT 4.98 10*6/uL (4.10-5.10); RED CELL DISTRI WIDTH 14.8 % (0-14.5)
[2020-11-13 10:02] LABS: ALBUMIN 3.2 gm/dl (3.1-4.5); ALKALINE PHOSPHATASE 77 U/L (45-117); BUN 11 mg/dl (7-24); CHLORIDE 110 mmol/L (98-107); LIPASE 216 U/L (73-393); POTASSIUM 3.2 mmol/L (3.5-5.1); SGOT/AST 14 IU/L (3-35); SGPT/ALT 20 U/L (12-78); SODIUM 142 mmol/L (136-145); TOTAL PROTEIN 6.8 gm/dL (6.4-8.2)
[2020-11-13 10:06] LABS: TROPONIN I < 0.015 ng/ml (<0.045)
[2020-11-13 12:35] VITALS: BP 145/78
[2020-11-13 13:44] VITALS: BP 157/81
[2020-11-13 14:35] LABS: BILIRUBIN Negative (Negative); BLOOD 1+ (Negative); CLARITY Cloudy (Clear); COLOR Yellow (Yellow); GLUCOSE Negative (Negative); KETONE Negative (Negative); LEUKO ESTERASE Negative (Negative); NITRITE Negative (Negative); SPECIFIC GRAVITY <= 1.005 (1.001-1.030); UROBILINOGEN 0.2 E.U./dl (0.0-1.0)
[2020-11-13 15:25] LABS: BACTERIA TRACE; RBC 0-2 rbc/hpf (0-2); URIC ACID CRYSTALS 1+; WBC 0-2 wbc/hpf (0-5)
[2020-11-13 16:57] VITALS: BP 140/61
[2020-11-13 17:18] VITALS: BP 155/72
[2020-11-13] MEDS ORDERED: POTASSIUM CITR10 ME1 PO (17:53)
[2020-11-13] MEDS ORDERED: VITAMIN D350 MC2 PO (17:54)
[2020-11-13] MEDS ORDERED: NEURONTIN300 MG PO (17:54)
[2020-11-13 20:00] VITALS: BP 140/67
[2020-11-14] VITALS: BP 111/38
[2020-11-14 06:23] LABS: LYMPH # 0.9 10*3/uL (1.3-4.4); MEAN CELL VOLUME 91.6 fl (81.0-99.0); MEAN CORPUSCULAR HGB 27.9 pg (27.0-31.0); MEAN CORPUSCULAR HGB CONC 30.4 g/dl (33.0-37.0); MEAN PLATELET VOLUME 11.3 fl (9.6-12.3); MONO # 0.6 10*3/uL (0.1-1.0); NEUT # 3.4 10*3/uL (2.3-7.9); NEUT % 69.8 % (47.0-73.0); PLATELET COUNT AUTOMATED 170 10*3/uL (130-400); RED BLOOD COUNT 5.24 10*6/uL (4.10-5.10); RED CELL DISTRI WIDTH 14.8 % (0-14.5); WHITE BLOOD COUNT 4.9 10*3/uL (4.8-10.8)
[2020-11-14 06:37] LABS: ALBUMIN 3.1 gm/dl (3.1-4.5); CREATININE 1.24 mg/dL (0.55-1.02); TOTAL PROTEIN 6.9 gm/dL (6.4-8.2)
[2020-11-14 08:00] VITALS: BP 158/70
[2020-11-14 10:08] LABS: ABG BASE EXCESS 0.6 mmol/L (-2.0-2.0); ARTERIAL BLOOD GAS PH 7.408 (7.35-7.45)
[2020-11-14 12:00] VITALS: BP 125/47
[2020-11-14 16:00] VITALS: BP 128/60
[2020-11-14 20:00] VITALS: BP 105/53
[2020-11-15] VITALS: BP 150/75
[2020-11-15 06:20] LABS: CREATININE 1.12 mg/dL (0.55-1.02); POTASSIUM 3.8 mmol/L (3.5-5.1)
[2020-11-15 08:00] VITALS: BP 136/81
[2020-11-15 12:00] VITALS: BP 131/64
[2020-11-15 16:00] VITALS: BP 134/68
[2020-11-15 20:00] VITALS: BP 151/62
[2020-11-16] VITALS: BP 154/68
[2020-11-16 05:20] LABS: BUN 21 mg/dl (7-24); CHLORIDE 110 mmol/L (98-107); CREATININE 1.07 mg/dL (0.55-1.02); POTASSIUM 3.8 mmol/L (3.5-5.1); SODIUM 141 mmol/L (136-145)
[2020-11-16 08:00] VITALS: BP 136/70
[2020-11-16 12:00] VITALS: BP 135/63
[2020-11-16 16:00] VITALS: BP 139/61
[2020-11-16 20:00] VITALS: BP 152/55
[2020-11-17] VITALS: BP 150/59
[2020-11-17 06:05] LABS: CREATININE 1.1 mg/dL (0.55-1.02); POTASSIUM 3.8 mmol/L (3.5-5.1)
[2020-11-17 08:00] VITALS: BP 124/68
[2020-11-17 12:00] VITALS: BP 123/63
[2020-11-17 16:00] VITALS: BP 124/69
[2020-11-17 20:00] VITALS: BP 145/48
[2020-11-18] VITALS: BP 121/60
[2020-11-18 05:41] LABS: CREATININE 1.14 mg/dL (0.55-1.02); POTASSIUM 3.8 mmol/L (3.5-5.1)
[2020-11-18 06:06] LABS: BASO % 0.1 % (0.0-1.0); HEMATOCRIT 44.9 % (37.0-47.0); LYMPH # 0.6 10*3/uL (1.3-4.4); LYMPH % 9.1 % (27.0-41.0); MEAN CELL VOLUME 89.3 fl (81.0-99.0); MEAN CORPUSCULAR HGB CONC 31.4 g/dl (33.0-37.0); MEAN PLATELET VOLUME 12.5 fl (9.6-12.3); MONO # 0.4 10*3/uL (0.1-1.0); MONO % 5.7 % (3.0-9.0); NEUT # 5.9 10*3/uL (2.3-7.9); NEUT % 84.8 % (47.0-73.0); PLATELET COUNT AUTOMATED 166 10*3/uL (130-400); RED BLOOD COUNT 5.03 10*6/uL (4.10-5.10); RED CELL DISTRI WIDTH 14.6 % (0-14.5)
[2020-11-18 08:00] VITALS: BP 155/78
[2020-11-18] MEDS ORDERED: DECADRON4 MG PO ×2 (12:01)
== END 2020-11-18 14:15 | disposition home or self-care (01) | DRG 177 ==
LOC: ED 09:08 → EDHOLD 12:03 → 4E 12:03 → EDHOLD 12:04 → 4E 17:05
PROVIDERS: Emergency Medicine; Internal Medicine; Internal Medicine Critical Care Medicine; Social Worker Clinical; Student in an Organized Health Care Education/Training Program; ADMIT Internal Medicine; ATTEND Internal Medicine
DX: U07.1 COVID-19 (principal); J96.01 Acute respiratory failure with hypoxia; E87.6 Hypokalemia; E11.69 Type 2 diabetes mellitus with other specified complication; N18.30 Chronic kidney disease, stage 3 unspecified; K21.9 Gastro-esophageal reflux disease without esophagitis; E11.22 Type 2 diabetes mellitus with diabetic chronic kidney disease; E11.40 Type 2 diabetes mellitus with diabetic neuropathy, unspecified; I12.9 Hypertensive chronic kidney disease with stage 1 through stage 4 chronic kidney disease, or unspecified chronic kidney disease; E87.8 Other disorders of electrolyte and fluid balance, not elsewhere classified; E53.8 Deficiency of other specified B group vitamins; Z79.4 Long term (current) use of insulin; Z90.710 Acquired absence of both cervix and uterus; Z79.891 Long term (current) use of opiate analgesic; Z83.3 Family history of diabetes mellitus; Z91.048 Other nonmedicinal substance allergy status; Z88.8 Allergy status to other drugs, medicaments and biological substances; Z79.899 Other long term (current) drug therapy

== ENCOUNTER 2020-11-19 21:50 | Inpatient (IN) | payer MEDICARE, MEDICAID ==
[~2020-11-19] VITALS: Ht 157.4 cm; Wt 102.3 kg
[~2020-11-19 21:50] MED LIST changes: +DECADRON4 MG PO; +POTASSIUM CITR10 ME1 PO; +VITAMIN D350 MC2 PO
[2020-11-19 21:55] VITALS: BP 143/83
[2020-11-19 22:53] LABS: BASO % 0.1 % (0.0-1.0); HEMATOCRIT 44.6 % (37.0-47.0); LYMPH # 0.7 10*3/uL (1.3-4.4); LYMPH % 8.4 % (27.0-41.0); MEAN CELL VOLUME 89.4 fl (81.0-99.0); MEAN CORPUSCULAR HGB 27.7 pg (27.0-31.0); MEAN CORPUSCULAR HGB CONC 30.9 g/dl (33.0-37.0); MONO # 0.5 10*3/uL (0.1-1.0); MONO % 6.4 % (3.0-9.0); NEUT # 6.8 10*3/uL (2.3-7.9); NEUT % 84.6 % (47.0-73.0); PLATELET COUNT AUTOMATED 176 10*3/uL (130-400); RED BLOOD COUNT 4.99 10*6/uL (4.10-5.10); RED CELL DISTRI WIDTH 14.8 % (0-14.5); WHITE BLOOD COUNT 8.1 10*3/uL (4.8-10.8)
[2020-11-19 23:17] LABS: ALBUMIN 2.6 gm/dl (3.1-4.5); ALKALINE PHOSPHATASE 60 U/L (45-117); BUN 27 mg/dl (7-24); CHLORIDE 105 mmol/L (98-107); CREATININE 1.19 mg/dL (0.55-1.02); POTASSIUM 3.6 mmol/L (3.5-5.1); SGOT/AST 38 IU/L (3-35); SGPT/ALT 40 U/L (12-78); SODIUM 138 mmol/L (136-145); TOTAL PROTEIN 6.5 gm/dL (6.4-8.2)
[2020-11-19 23:23] LABS: TROPONIN I < 0.015 ng/ml (<0.045)
[2020-11-20] VITALS (7 sets, daily range): BP systolic 123–151; BP diastolic 54–83
[2020-11-20 06:14] LABS: BASO % 0.1 % (0.0-1.0); HEMATOCRIT 44.1 % (37.0-47.0); LYMPH # 0.5 10*3/uL (1.3-4.4); LYMPH % 6.4 % (27.0-41.0); MEAN CELL VOLUME 88.2 fl (81.0-99.0); MEAN CORPUSCULAR HGB 27.8 pg (27.0-31.0); MEAN CORPUSCULAR HGB CONC 31.5 g/dl (33.0-37.0); MEAN PLATELET VOLUME 11.6 fl (9.6-12.3); MONO # 0.4 10*3/uL (0.1-1.0); NEUT # 6.1 10*3/uL (2.3-7.9); NEUT % 87.1 % (47.0-73.0); PLATELET COUNT AUTOMATED 181 10*3/uL (130-400)
[2020-11-20 06:29] LABS: ALBUMIN 2.5 gm/dl (3.1-4.5); BUN 26 mg/dl (7-24); CHLORIDE 106 mmol/L (98-107); POTASSIUM 3.9 mmol/L (3.5-5.1); SODIUM 140 mmol/L (136-145)
[2020-11-20 06:31] LABS: ACT PARTIAL THROMBO TIME 29.3 SECONDS (20.0-32.1)
[2020-11-20 06:32] LABS: ALKALINE PHOSPHATASE 61 U/L (45-117); CREATININE 1.09 mg/dL (0.55-1.02); SGOT/AST 35 IU/L (3-35); SGPT/ALT 41 U/L (12-78); TOTAL PROTEIN 6.5 gm/dL (6.4-8.2)
[2020-11-20 12:16] LABS: ABG BASE EXCESS 3.5 mmol/L (-2.0-2.0); ARTERIAL BLOOD GAS PH 7.45 (7.35-7.45)
[2020-11-20 15:08] LABS: ABG BASE EXCESS 3.7 mmol/L (-2.0-2.0); ARTERIAL BLOOD GAS PH 7.44 (7.35-7.45)
[2020-11-20 22:05] LABS: ABG BASE EXCESS 2.6 mmol/L (-2.0-2.0); ARTERIAL BLOOD GAS PH 7.4 (7.35-7.45)
[2020-11-21] VITALS (10 sets, daily range): BP systolic 90–126; BP diastolic 50–73
[2020-11-21 06:06] LABS: ALBUMIN 2.3 gm/dl (3.1-4.5); CREATININE 1.11 mg/dL (0.55-1.02); POTASSIUM 3.9 mmol/L (3.5-5.1); TOTAL PROTEIN 6.1 gm/dL (6.4-8.2)
[2020-11-21 06:08] LABS: BASO % 0.2 % (0.0-1.0); HEMATOCRIT 43.3 % (37.0-47.0); LYMPH # 0.5 10*3/uL (1.3-4.4); LYMPH % 8.1 % (27.0-41.0); MEAN CELL VOLUME 89.3 fl (81.0-99.0); MEAN CORPUSCULAR HGB 27.6 pg (27.0-31.0); MEAN CORPUSCULAR HGB CONC 30.9 g/dl (33.0-37.0); MEAN PLATELET VOLUME 11.8 fl (9.6-12.3); MONO # 0.6 10*3/uL (0.1-1.0); NEUT # 4.7 10*3/uL (2.3-7.9); NEUT % 81.2 % (47.0-73.0); PLATELET COUNT AUTOMATED 199 10*3/uL (130-400); RED BLOOD COUNT 4.85 10*6/uL (4.10-5.10); RED CELL DISTRI WIDTH 14.7 % (0-14.5); WHITE BLOOD COUNT 5.8 10*3/uL (4.8-10.8)
[2020-11-21 07:38] LABS: ABG BASE EXCESS 3.1 mmol/L (-2.0-2.0); ARTERIAL BLOOD GAS PH 7.405 (7.35-7.45)
[2020-11-21 13:53] LABS: ABG BASE EXCESS 3.1 mmol/L (-2.0-2.0); ARTERIAL BLOOD GAS PH 7.412 (7.35-7.45); ARTERIAL BLOOD GAS PO2 148.1 (80-90)
[2020-11-21 18:09] LABS: ABG BASE EXCESS 1.9 mmol/L (-2.0-2.0); ARTERIAL BLOOD GAS PH 7.378 (7.35-7.45); ARTERIAL BLOOD GAS PO2 101.2 (80-90)
[2020-11-21 23:04] LABS: ABG BASE EXCESS 2.9 mmol/L (-2.0-2.0); ARTERIAL BLOOD GAS PH 7.321 (7.35-7.45)
[2020-11-22] VITALS (12 sets, daily range): BP systolic 102–144; BP diastolic 63–84
[2020-11-22 05:43] LABS: ALBUMIN 2.5 gm/dl (3.1-4.5); CREATININE 1.19 mg/dL (0.55-1.02); POTASSIUM 4.4 mmol/L (3.5-5.1); TOTAL PROTEIN 6.8 gm/dL (6.4-8.2)
[2020-11-22 06:05] LABS: BASO % 0.2 % (0.0-1.0); HEMATOCRIT 48.1 % (37.0-47.0); LYMPH # 0.6 10*3/uL (1.3-4.4); LYMPH % 5.8 % (27.0-41.0); MEAN CELL VOLUME 91.6 fl (81.0-99.0); MEAN CORPUSCULAR HGB 27.8 pg (27.0-31.0); MEAN CORPUSCULAR HGB CONC 30.4 g/dl (33.0-37.0); MEAN PLATELET VOLUME 11.9 fl (9.6-12.3); MONO # 1.1 10*3/uL (0.1-1.0); MONO % 10.3 % (3.0-9.0); NEUT # 8.8 10*3/uL (2.3-7.9); NEUT % 82.7 % (47.0-73.0); PLATELET COUNT AUTOMATED 257 10*3/uL (130-400); RED BLOOD COUNT 5.25 10*6/uL (4.10-5.10); RED CELL DISTRI WIDTH 14.8 % (0-14.5); WHITE BLOOD COUNT 10.6 10*3/uL (4.8-10.8)
[2020-11-22 07:34] LABS: ABG BASE EXCESS 3.5 mmol/L (-2.0-2.0); ARTERIAL BLOOD GAS PH 7.296 (7.35-7.45); ARTERIAL BLOOD GAS PO2 184.6 (80-90)
[2020-11-22 14:21] LABS: ABG BASE EXCESS 2.9 mmol/L (-2.0-2.0); ARTERIAL BLOOD GAS PH 7.357 (7.35-7.45); ARTERIAL BLOOD GAS PO2 107.6 (80-90)
[2020-11-22 20:51] LABS: ABG BASE EXCESS 3.5 mmol/L (-2.0-2.0); ARTERIAL BLOOD GAS PH 7.39 (7.35-7.45); ARTERIAL BLOOD GAS PO2 93.4 (80-90)
[2020-11-22 23:43] LABS: ABG BASE EXCESS 2.4 mmol/L (-2.0-2.0); ARTERIAL BLOOD GAS PH 7.354 (7.35-7.45)
[2020-11-23] VITALS (12 sets, daily range): BP systolic 93–139; BP diastolic 56–75
[2020-11-23 06:10] LABS: ALBUMIN 2.3 gm/dl (3.1-4.5); CREATININE 1.15 mg/dL (0.55-1.02); POTASSIUM 4.8 mmol/L (3.5-5.1); TOTAL PROTEIN 6.1 gm/dL (6.4-8.2)
[2020-11-23 06:11] LABS: BASO % 0.2 % (0.0-1.0); EOS % 0.1 % (1.0-4.0); HEMATOCRIT 45.6 % (37.0-47.0); LYMPH # 0.6 10*3/uL (1.3-4.4); LYMPH % 7.2 % (27.0-41.0); MEAN CELL VOLUME 92.7 fl (81.0-99.0); MEAN CORPUSCULAR HGB 27.8 pg (27.0-31.0); MEAN PLATELET VOLUME 12.2 fl (9.6-12.3); MONO # 1.1 10*3/uL (0.1-1.0); MONO % 12.6 % (3.0-9.0); NEUT % 78.4 % (47.0-73.0); PLATELET COUNT AUTOMATED 247 10*3/uL (130-400); RED BLOOD COUNT 4.92 10*6/uL (4.10-5.10); RED CELL DISTRI WIDTH 14.8 % (0-14.5); WHITE BLOOD COUNT 8.9 10*3/uL (4.8-10.8)
[2020-11-23 07:58] LABS: ABG BASE EXCESS 0.8 mmol/L (-2.0-2.0); ARTERIAL BLOOD GAS PH 7.344 (7.35-7.45); ARTERIAL BLOOD GAS PO2 161.3 (80-90)
[2020-11-23 12:41] LABS: ABG BASE EXCESS 2.7 mmol/L (-2.0-2.0); ARTERIAL BLOOD GAS PH 7.345 (7.35-7.45); ARTERIAL BLOOD GAS PO2 128.1 (80-90)
[2020-11-23 17:21] LABS: ABG BASE EXCESS 2.8 mmol/L (-2.0-2.0); ARTERIAL BLOOD GAS PH 7.383 (7.35-7.45); ARTERIAL BLOOD GAS PO2 87.7 (80-90)
[2020-11-23 21:18] LABS: ABG BASE EXCESS 8.5 mmol/L (-2.0-2.0); ARTERIAL BLOOD GAS PH 7.424 (7.35-7.45); ARTERIAL BLOOD GAS PO2 66.7 (80-90)
[2020-11-24] VITALS (12 sets, daily range): BP systolic 92–166; BP diastolic 48–84
[2020-11-24 05:51] LABS: ALBUMIN 2.3 gm/dl (3.1-4.5); CREATININE 1.15 mg/dL (0.55-1.02); POTASSIUM 4.5 mmol/L (3.5-5.1); TOTAL PROTEIN 6.4 gm/dL (6.4-8.2)
[2020-11-24 06:18] LABS: BASO # 0.1 10*3/uL (0.0-0.1); BASO % 0.4 % (0.0-1.0); EOS # 0.1 10*3/uL (0.0-0.4); EOS % 0.4 % (1.0-4.0); LYMPH # 0.9 10*3/uL (1.3-4.4); LYMPH % 6.9 % (27.0-41.0); MEAN CELL VOLUME 94.5 fl (81.0-99.0); MEAN CORPUSCULAR HGB CONC 29.6 g/dl (33.0-37.0); MEAN PLATELET VOLUME 11.6 fl (9.6-12.3); MONO # 1.4 10*3/uL (0.1-1.0); MONO % 10.7 % (3.0-9.0); NEUT # 10.6 10*3/uL (2.3-7.9); NEUT % 79.9 % (47.0-73.0); PLATELET COUNT AUTOMATED 244 10*3/uL (130-400); RED BLOOD COUNT 5.08 10*6/uL (4.10-5.10); RED CELL DISTRI WIDTH 14.6 % (0-14.5); WHITE BLOOD COUNT 13.3 10*3/uL (4.8-10.8)
[2020-11-24 07:59] LABS: ABG BASE EXCESS 4.6 mmol/L (-2.0-2.0); ARTERIAL BLOOD GAS PH 7.311 (7.35-7.45); ARTERIAL BLOOD GAS PO2 107.5 (80-90)
[2020-11-24 17:05] LABS: ABG BASE EXCESS 5.4 mmol/L (-2.0-2.0); ARTERIAL BLOOD GAS PH 7.395 (7.35-7.45); ARTERIAL BLOOD GAS PO2 76.8 (80-90)
[2020-11-25] VITALS (12 sets, daily range): BP systolic 102–137; BP diastolic 57–84
[2020-11-25 06:09] LABS: BASO % 0.2 % (0.0-1.0); EOS # 0.1 10*3/uL (0.0-0.4); EOS % 0.8 % (1.0-4.0); HEMATOCRIT 45.1 % (37.0-47.0); LYMPH # 1.1 10*3/uL (1.3-4.4); LYMPH % 7.7 % (27.0-41.0); MEAN CORPUSCULAR HGB 27.8 pg (27.0-31.0); MEAN CORPUSCULAR HGB CONC 30.2 g/dl (33.0-37.0); MONO # 1.3 10*3/uL (0.1-1.0); MONO % 9.3 % (3.0-9.0); NEUT # 11.4 10*3/uL (2.3-7.9); NEUT % 80.6 % (47.0-73.0); PLATELET COUNT AUTOMATED 287 10*3/uL (130-400); RED CELL DISTRI WIDTH 14.8 % (0-14.5); WHITE BLOOD COUNT 14.2 10*3/uL (4.8-10.8)
[2020-11-25 06:40] LABS: ALBUMIN 2.2 gm/dl (3.1-4.5); POTASSIUM 4.3 mmol/L (3.5-5.1)
[2020-11-25 06:50] LABS: CREATININE 1.1 mg/dL (0.55-1.02); THYROID STIM HORMONE (HS) 1.48 uIU/ml (0.358-4.75)
[2020-11-25 07:41] LABS: ABG BASE EXCESS 5.5 mmol/L (-2.0-2.0); ARTERIAL BLOOD GAS PH 7.424 (7.35-7.45); ARTERIAL BLOOD GAS PO2 95.2 (80-90)
[2020-11-25 13:03] LABS: BILIRUBIN Negative (Negative); BLOOD 3+ (Negative); CLARITY Cloudy (Clear); COLOR Dark Yellow (Yellow); GLUCOSE Negative (Negative); KETONE Trace (Negative); LEUKO ESTERASE 2+ (Negative); NITRITE Positive (Negative); PH 5.5 (4.5-8.0); SPECIFIC GRAVITY >= 1.030 (1.001-1.030)
[2020-11-25 13:15] LABS: BACTERIA 3+; EPITHELIAL CELLS 0-2; RBC TNTC rbc/hpf (0-2)
[2020-11-26] VITALS (10 sets, daily range): BP systolic 99–153; BP diastolic 57–83
[2020-11-26 06:19] LABS: BASO % 0.2 % (0.0-1.0); EOS # 0.1 10*3/uL (0.0-0.4); EOS % 1.2 % (1.0-4.0); HEMATOCRIT 42.1 % (37.0-47.0); LYMPH # 0.9 10*3/uL (1.3-4.4); LYMPH % 7.7 % (27.0-41.0); MEAN CORPUSCULAR HGB 27.8 pg (27.0-31.0); MEAN CORPUSCULAR HGB CONC 30.9 g/dl (33.0-37.0); MONO # 1.1 10*3/uL (0.1-1.0); MONO % 8.6 % (3.0-9.0); NEUT # 9.7 10*3/uL (2.3-7.9); NEUT % 80.2 % (47.0-73.0); PLATELET COUNT AUTOMATED 261 10*3/uL (130-400); RED BLOOD COUNT 4.68 10*6/uL (4.10-5.10); RED CELL DISTRI WIDTH 14.6 % (0-14.5); WHITE BLOOD COUNT 12.1 10*3/uL (4.8-10.8)
[2020-11-26 06:33] LABS: ALBUMIN 2.1 gm/dl (3.1-4.5); ALKALINE PHOSPHATASE 54 U/L (45-117); BUN 47 mg/dl (7-24); CHLORIDE 111 mmol/L (98-107); LDH 221 U/L (84-246); POTASSIUM 4.1 mmol/L (3.5-5.1); SGOT/AST 23 IU/L (3-35); SGPT/ALT 40 U/L (12-78); SODIUM 145 mmol/L (136-145); TOTAL PROTEIN 5.8 gm/dL (6.4-8.2); TRIGLYCERIDES 366 mg/dl (<150)
[2020-11-26 07:39] LABS: ABG BASE EXCESS 6.5 mmol/L (-2.0-2.0); ARTERIAL BLOOD GAS PH 7.465 (7.35-7.45); ARTERIAL BLOOD GAS PO2 88.1 (80-90)
[2020-11-26 13:26] LABS: ABG BASE EXCESS 4.6 mmol/L (-2.0-2.0); ARTERIAL BLOOD GAS PH 7.437 (7.35-7.45); ARTERIAL BLOOD GAS PO2 87.5 (80-90)
[2020-11-26 15:43] LABS: ABG BASE EXCESS 5.7 mmol/L (-2.0-2.0); ARTERIAL BLOOD GAS PH 7.462 (7.35-7.45); ARTERIAL BLOOD GAS PO2 81.4 (80-90)
[2020-11-27] VITALS: BP 141/73
[2020-11-27 04:00] VITALS: BP 166/88
[2020-11-27 06:03] LABS: ALBUMIN 2.1 gm/dl (3.1-4.5); ALKALINE PHOSPHATASE 51 U/L (45-117); BUN 40 mg/dl (7-24); CHLORIDE 110 mmol/L (98-107); CPK 263 U/L (26-192); CREATININE 0.85 mg/dL (0.55-1.02); LDH 222 U/L (84-246); POTASSIUM 3.8 mmol/L (3.5-5.1); SGOT/AST 34 IU/L (3-35); SGPT/ALT 44 U/L (12-78); SODIUM 145 mmol/L (136-145)
[2020-11-27 06:05] LABS: BASO % 0.2 % (0.0-1.0); EOS # 0.1 10*3/uL (0.0-0.4); EOS % 1.2 % (1.0-4.0); HEMATOCRIT 40.6 % (37.0-47.0); LYMPH # 0.9 10*3/uL (1.3-4.4); LYMPH % 8.4 % (27.0-41.0); MEAN CORPUSCULAR HGB 27.9 pg (27.0-31.0); MEAN PLATELET VOLUME 12.3 fl (9.6-12.3); MONO % 8.8 % (3.0-9.0); NEUT # 8.6 10*3/uL (2.3-7.9); NEUT % 79.7 % (47.0-73.0); PLATELET COUNT AUTOMATED 268 10*3/uL (130-400); RED BLOOD COUNT 4.51 10*6/uL (4.10-5.10); RED CELL DISTRI WIDTH 14.5 % (0-14.5); WHITE BLOOD COUNT 10.8 10*3/uL (4.8-10.8)
[2020-11-27 08:00] VITALS: BP 150/75
[2020-11-27 08:20] LABS: ABG BASE EXCESS 5.8 mmol/L (-2.0-2.0); ARTERIAL BLOOD GAS PH 7.458 (7.35-7.45); ARTERIAL BLOOD GAS PO2 58.4 (80-90)
[2020-11-27 12:00] VITALS: BP 163/83
[2020-11-27 12:03] LABS: ABG BASE EXCESS 8.3 mmol/L (-2.0-2.0); ARTERIAL BLOOD GAS PH 7.464 (7.35-7.45); ARTERIAL BLOOD GAS PO2 81.1 (80-90)
[2020-11-27 16:00] VITALS: BP 142/76
[2020-11-27 20:00] VITALS: BP 110/62
[2020-11-28] VITALS: BP 117/69
[2020-11-28 04:00] VITALS: BP 129/72
[2020-11-28 05:42] LABS: ALBUMIN 2.1 gm/dl (3.1-4.5); ALKALINE PHOSPHATASE 53 U/L (45-117); BUN 39 mg/dl (7-24); CHLORIDE 107 mmol/L (98-107); CREATININE 0.83 mg/dL (0.55-1.02); LDH 207 U/L (84-246); SGOT/AST 29 IU/L (3-35); SGPT/ALT 46 U/L (12-78); SODIUM 142 mmol/L (136-145)
[2020-11-28 05:47] LABS: CPK 110 U/L (26-192)
[2020-11-28 06:06] LABS: BASO % 0.2 % (0.0-1.0); EOS # 0.2 10*3/uL (0.0-0.4); EOS % 1.7 % (1.0-4.0); HEMATOCRIT 40.9 % (37.0-47.0); LYMPH % 9.7 % (27.0-41.0); MEAN CELL VOLUME 90.1 fl (81.0-99.0); MEAN CORPUSCULAR HGB CONC 31.1 g/dl (33.0-37.0); MEAN PLATELET VOLUME 12.2 fl (9.6-12.3); MONO % 9.1 % (3.0-9.0); NEUT # 8.2 10*3/uL (2.3-7.9); PLATELET COUNT AUTOMATED 267 10*3/uL (130-400); RED BLOOD COUNT 4.54 10*6/uL (4.10-5.10); RED CELL DISTRI WIDTH 14.5 % (0-14.5); WHITE BLOOD COUNT 10.6 10*3/uL (4.8-10.8)
[2020-11-28 07:42] LABS: ABG BASE EXCESS 7.1 mmol/L (-2.0-2.0); ARTERIAL BLOOD GAS PH 7.466 (7.35-7.45); ARTERIAL BLOOD GAS PO2 95.8 (80-90)
[2020-11-28 08:00] VITALS: BP 173/81
[2020-11-28 12:00] VITALS: BP 167/87
[2020-11-28 12:53] LABS: ABG BASE EXCESS 7.5 mmol/L (-2.0-2.0); ARTERIAL BLOOD GAS PH 7.458 (7.35-7.45); ARTERIAL BLOOD GAS PO2 77.3 (80-90)
[2020-11-28] MEDS ORDERED: CEFTRIAXONE1 GM IJ (12:53)
[2020-11-28] MEDS ORDERED: OMNICEF300 MG PO ×2 (14:17)
== END 2020-11-28 15:51 | DRG 870 ==
LOC: ED 21:50 → 4E 22:51 → ICCU 22:51 → EDHOLD 22:51 → 4E 11-20 00:10 → ICCU 11-20 15:08
PROVIDERS: Family Medicine; Internal Medicine; Internal Medicine Critical Care Medicine; Nurse Practitioner; Physician Assistant; Student in an Organized Health Care Education/Training Program; ADMIT Internal Medicine; ATTEND Internal Medicine
PROC: 5A09357 Assistance with Respiratory Ventilation, Less than 24 Consecutive Hours, Continuous Positive Airway Pressure (ICD-10-PCS; 2020-11-19)
PROC: XW033E5 Introduction of Remdesivir Anti-infective into Peripheral Vein, Percutaneous Approach, New Technology Group 5 (ICD-10-PCS; 2020-11-19)
PROC: 5A1955Z Respiratory Ventilation, Greater than 96 Consecutive Hours (ICD-10-PCS; principal; 2020-11-20)
PROC: 0BH18EZ Insertion of Endotracheal Airway into Trachea, Via Natural or Artificial Opening Endoscopic (ICD-10-PCS; 2020-11-20)
DX: A41.9 Sepsis, unspecified organism (principal); U07.1 COVID-19; J96.01 Acute respiratory failure with hypoxia; G93.41 Metabolic encephalopathy; J12.82 Pneumonia due to coronavirus disease 2019; E44.0 Moderate protein-calorie malnutrition; N17.9 Acute kidney failure, unspecified; E87.1 Hypo-osmolality and hyponatremia; N39.0 Urinary tract infection, site not specified; Z68.41 Body mass index [BMI] 40.0-44.9, adult; E11.69 Type 2 diabetes mellitus with other specified complication; N18.31 Chronic kidney disease, stage 3a; K21.9 Gastro-esophageal reflux disease without esophagitis; E11.22 Type 2 diabetes mellitus with diabetic chronic kidney disease; E11.40 Type 2 diabetes mellitus with diabetic neuropathy, unspecified; E53.8 Deficiency of other specified B group vitamins; E11.42 Type 2 diabetes mellitus with diabetic polyneuropathy; E11.65 Type 2 diabetes mellitus with hyperglycemia; E83.41 Hypermagnesemia; E66.01 Morbid (severe) obesity due to excess calories; E78.1 Pure hyperglyceridemia; E87.6 Hypokalemia; B96.20 Unspecified Escherichia coli [E. coli] as the cause of diseases classified elsewhere; I12.9 Hypertensive chronic kidney disease with stage 1 through stage 4 chronic kidney disease, or unspecified chronic kidney disease; S20.122A Blister (nonthermal) of breast, left breast, initial encounter; D72.829 Elevated white blood cell count, unspecified; E83.39 Other disorders of phosphorus metabolism; Z88.6 Allergy status to analgesic agent; Z88.8 Allergy status to other drugs, medicaments and biological substances; Z90.710 Acquired absence of both cervix and uterus; Z98.51 Tubal ligation status; Z83.3 Family history of diabetes mellitus; Z83.6 Family history of other diseases of the respiratory system; Z87.442 Personal history of urinary calculi; X58.XXXA Exposure to other specified factors, initial encounter; Y93.89 Activity, other specified; Y92.89 Other specified places as the place of occurrence of the external cause; Y99.8 Other external cause status

== ENCOUNTER 2021-01-21 10:16 | Inpatient (IN) | payer MEDICARE, MEDICAID ==
[2021-01-21] VITALS (7 sets, daily range): BP systolic 128–174; BP diastolic 69–91
[~2021-01-21] VITALS: Ht 157.4 cm; Wt 97.8 kg
[~2021-01-21 10:16] MED LIST changes: +CEFTRIAXONE1 GM IJ; +OMNICEF300 MG PO
[2021-01-21 10:51] LABS: BASO % 0.4 % (0.0-1.0); EOS # 0.3 10*3/uL (0.0-0.4); EOS % 3.1 % (1.0-4.0); HEMATOCRIT 43.3 % (37.0-47.0); LYMPH # 1.7 10*3/uL (1.3-4.4); LYMPH % 16.4 % (27.0-41.0); MEAN CELL VOLUME 93.5 fl (81.0-99.0); MEAN CORPUSCULAR HGB 28.9 pg (27.0-31.0); MEAN CORPUSCULAR HGB CONC 30.9 g/dl (33.0-37.0); MEAN PLATELET VOLUME 10.4 fl (9.6-12.3); MONO # 0.7 10*3/uL (0.1-1.0); MONO % 6.4 % (3.0-9.0); NEUT # 7.4 10*3/uL (2.3-7.9); NEUT % 73.1 % (47.0-73.0); PLATELET COUNT AUTOMATED 272 10*3/uL (130-400); RED BLOOD COUNT 4.63 10*6/uL (4.10-5.10); RED CELL DISTRI WIDTH 16.6 % (0-14.5); WHITE BLOOD COUNT 10.2 10*3/uL (4.8-10.8)
[2021-01-21 11:03] LABS: ACT PARTIAL THROMBO TIME 24.7 SECONDS (20.0-32.1)
[2021-01-21] MEDS ORDERED: REGLAN5 MG PO (11:06)
[2021-01-21] MEDS ORDERED: METFORMIN HYD1000 MG PO (11:07)
[2021-01-21] MEDS ORDERED: LOSARTAN POTASS50 M1 PO (11:07)
[2021-01-21] MEDS ORDERED: ASPIRIN ADULT L81 M2 PO (11:08)
[2021-01-21 12:17] LABS: ALBUMIN 3.2 gm/dl (3.1-4.5); ALKALINE PHOSPHATASE 73 U/L (45-117); BUN 14 mg/dl (7-24); CHLORIDE 110 mmol/L (98-107); CREATININE 0.96 mg/dL (0.55-1.02); POTASSIUM 3.7 mmol/L (3.5-5.1); SGOT/AST 14 IU/L (3-35); SGPT/ALT 23 U/L (12-78); SODIUM 144 mmol/L (136-145)
[2021-01-21 12:18] LABS: TROPONIN I < 0.015 ng/ml (<0.045)
[2021-01-22 00:58] VITALS: BP 142/78
[2021-01-22 06:53] LABS: BASO # 0.1 10*3/uL (0.0-0.1); BASO % 0.5 % (0.0-1.0); EOS # 0.5 10*3/uL (0.0-0.4); EOS % 4.5 % (1.0-4.0); HEMATOCRIT 41.1 % (37.0-47.0); LYMPH # 1.8 10*3/uL (1.3-4.4); LYMPH % 17.6 % (27.0-41.0); MEAN CELL VOLUME 93.6 fl (81.0-99.0); MEAN CORPUSCULAR HGB 28.5 pg (27.0-31.0); MEAN CORPUSCULAR HGB CONC 30.4 g/dl (33.0-37.0); MEAN PLATELET VOLUME 10.4 fl (9.6-12.3); MONO # 0.7 10*3/uL (0.1-1.0); MONO % 6.8 % (3.0-9.0); NEUT # 7.2 10*3/uL (2.3-7.9); PLATELET COUNT AUTOMATED 259 10*3/uL (130-400); RED BLOOD COUNT 4.39 10*6/uL (4.10-5.10); RED CELL DISTRI WIDTH 16.8 % (0-14.5); WHITE BLOOD COUNT 10.3 10*3/uL (4.8-10.8)
[2021-01-22 07:08] LABS: ALBUMIN 2.9 gm/dl (3.1-4.5); ALKALINE PHOSPHATASE 70 U/L (45-117); BUN 12 mg/dl (7-24); CHLORIDE 108 mmol/L (98-107); CREATININE 0.88 mg/dL (0.55-1.02); POTASSIUM 3.7 mmol/L (3.5-5.1); SGOT/AST 14 IU/L (3-35); SGPT/ALT 21 U/L (12-78); SODIUM 143 mmol/L (136-145); TOTAL PROTEIN 6.5 gm/dL (6.4-8.2)
[2021-01-22 12:00] VITALS: BP 110/83
[2021-01-22 16:03] VITALS: BP 165/87
[2021-01-22 20:00] VITALS: BP 168/73
[2021-01-22 21:54] LABS: BILIRUBIN Negative (Negative); BLOOD 1+ (Negative); CLARITY Cloudy (Clear); COLOR Yellow (Yellow); GLUCOSE Negative (Negative); KETONE Negative (Negative); LEUKO ESTERASE 2+ (Negative); NITRITE Negative (Negative); PH 5.5 (4.5-8.0); UROBILINOGEN 0.2 E.U./dl (0.0-1.0)
[2021-01-22 22:28] LABS: EPITHELIAL CELLS 16-20; WBC 21-30 wbc/hpf (0-5)
[2021-01-22 22:30] LABS: BACTERIA TRACE
[2021-01-22 22:51] VITALS: BP 162/68
[2021-01-23] VITALS: BP 170/77
[2021-01-23 06:59] LABS: BASO # 0.1 10*3/uL (0.0-0.1); BASO % 0.5 % (0.0-1.0); EOS # 0.4 10*3/uL (0.0-0.4); EOS % 4.2 % (1.0-4.0); HEMATOCRIT 42.5 % (37.0-47.0); LYMPH # 1.9 10*3/uL (1.3-4.4); LYMPH % 19.1 % (27.0-41.0); MEAN CELL VOLUME 93.4 fl (81.0-99.0); MEAN CORPUSCULAR HGB 28.8 pg (27.0-31.0); MEAN CORPUSCULAR HGB CONC 30.8 g/dl (33.0-37.0); MEAN PLATELET VOLUME 10.6 fl (9.6-12.3); MONO # 0.8 10*3/uL (0.1-1.0); MONO % 7.8 % (3.0-9.0); NEUT # 6.7 10*3/uL (2.3-7.9); NEUT % 68.1 % (47.0-73.0); PLATELET COUNT AUTOMATED 275 10*3/uL (130-400); RED BLOOD COUNT 4.55 10*6/uL (4.10-5.10); RED CELL DISTRI WIDTH 16.7 % (0-14.5); WHITE BLOOD COUNT 9.8 10*3/uL (4.8-10.8)
[2021-01-23 07:06] LABS: BUN 13 mg/dl (7-24); CHLORIDE 107 mmol/L (98-107); CREATININE 0.83 mg/dL (0.55-1.02); POTASSIUM 3.6 mmol/L (3.5-5.1); SODIUM 141 mmol/L (136-145)
[2021-01-23 08:00] VITALS: BP 162/84
[2021-01-23 08:25] VITALS: BP 162/84
[2021-01-23 12:00] VITALS: BP 102/84
[2021-01-23 16:00] VITALS: BP 108/61; BP 119/59
[2021-01-23 20:00] VITALS: BP 187/89
[2021-01-24] VITALS: BP 149/88
[2021-01-24 07:47] VITALS: BP 158/90
[2021-01-24 08:00] VITALS: BP 148/84
[2021-01-24 12:00] VITALS: BP 128/76
[2021-01-24] MEDS ORDERED: ATORVASTATIN CA40 M1 PO (15:34)
[2021-01-24] MEDS ORDERED: VITAMIN B121000 MC1 PO (15:34)
[2021-01-24] MEDS ORDERED: CLOPIDOGREL75 MG PO (15:34)
== END 2021-01-24 17:40 | DRG 65 ==
LOC: ED 10:16 → EDHOLD 12:32 → 5E 12:32
PROVIDERS: Emergency Medicine; Student in an Organized Health Care Education/Training Program; ADMIT Internal Medicine; ATTEND Internal Medicine
DX: I63.9 Cerebral infarction, unspecified (principal); E44.0 Moderate protein-calorie malnutrition; E87.8 Other disorders of electrolyte and fluid balance, not elsewhere classified; E66.9 Obesity, unspecified; I12.9 Hypertensive chronic kidney disease with stage 1 through stage 4 chronic kidney disease, or unspecified chronic kidney disease; E11.22 Type 2 diabetes mellitus with diabetic chronic kidney disease; N18.30 Chronic kidney disease, stage 3 unspecified; K21.9 Gastro-esophageal reflux disease without esophagitis; E11.42 Type 2 diabetes mellitus with diabetic polyneuropathy; E11.65 Type 2 diabetes mellitus with hyperglycemia; E53.8 Deficiency of other specified B group vitamins; E80.6 Other disorders of bilirubin metabolism; Z68.39 Body mass index [BMI] 39.0-39.9, adult; Z90.710 Acquired absence of both cervix and uterus; Z79.82 Long term (current) use of aspirin; Z79.899 Other long term (current) drug therapy; Z88.8 Allergy status to other drugs, medicaments and biological substances; Z88.6 Allergy status to analgesic agent; Z83.3 Family history of diabetes mellitus; Z20.822 Contact with and (suspected) exposure to COVID-19

== ENCOUNTER 2021-03-09 12:31 | Inpatient (IN) | payer MEDICARE, MEDICAID ==
[2021-03-09] VITALS (11 sets, daily range): BP systolic 154–193; BP diastolic 74–138
[~2021-03-09] VITALS: Ht 158.8 cm; Wt 93.4 kg
[~2021-03-09 12:31] MED LIST changes: +ASPIRIN ADULT L81 M2 PO; +ATORVASTATIN CA40 M1 PO; +CLOPIDOGREL75 MG PO; +REGLAN5 MG PO; +VITAMIN B121000 MC1 PO
[2021-03-09 14:03] LABS: BASO # 0.1 10*3/uL (0.0-0.1); BASO % 0.5 % (0.0-1.0); EOS # 0.4 10*3/uL (0.0-0.4); EOS % 3.9 % (1.0-4.0); HEMATOCRIT 45.1 % (37.0-47.0); LYMPH # 2.2 10*3/uL (1.3-4.4); LYMPH % 22.2 % (27.0-41.0); MEAN CELL VOLUME 91.5 fl (81.0-99.0); MEAN CORPUSCULAR HGB 28.8 pg (27.0-31.0); MEAN CORPUSCULAR HGB CONC 31.5 g/dl (33.0-37.0); MEAN PLATELET VOLUME 11.3 fl (9.6-12.3); MONO # 0.9 10*3/uL (0.1-1.0); MONO % 8.5 % (3.0-9.0); NEUT # 6.4 10*3/uL (2.3-7.9); NEUT % 63.9 % (47.0-73.0); PLATELET COUNT AUTOMATED 251 10*3/uL (130-400); RED BLOOD COUNT 4.93 10*6/uL (4.10-5.10); RED CELL DISTRI WIDTH 14.4 % (0-14.5)
[2021-03-09 14:20] LABS: ALBUMIN 3.5 gm/dl (3.1-4.5); ALKALINE PHOSPHATASE 72 U/L (45-117); BUN 16 mg/dl (7-24); CHLORIDE 107 mmol/L (98-107); CREATININE 0.87 mg/dL (0.55-1.02); LIPASE 164 U/L (73-393); POTASSIUM 3.5 mmol/L (3.5-5.1); SGOT/AST 15 IU/L (3-35); SGPT/ALT 20 U/L (12-78); SODIUM 144 mmol/L (136-145); TOTAL PROTEIN 7.3 gm/dL (6.4-8.2)
[2021-03-09 15:36] LABS: BILIRUBIN Negative (Negative); BLOOD 2+ (Negative); CLARITY Turbid (Clear); COLOR Yellow (Yellow); GLUCOSE Negative (Negative); KETONE Negative (Negative); LEUKO ESTERASE 3+ (Negative); NITRITE Positive (Negative); SPECIFIC GRAVITY 1.015 (1.001-1.030)
[2021-03-09 15:46] LABS: BACTERIA 3+; WBC 51-100 wbc/hpf (0-5)
[2021-03-09] MEDS ORDERED: REGLAN10 M1 PO (21:03)
[2021-03-09] MEDS ORDERED: Ondansetron4 MG PO (21:04)
[2021-03-09] MEDS ORDERED: TYLENOL325 M1 PO (21:08)
[2021-03-09] MEDS ORDERED: MYLANTA MAXIMU355 M1 PO (21:09)
[2021-03-09] MEDS ORDERED: CYMBALTA30 MG PO (21:10)
[2021-03-09] MEDS ORDERED: PEPCID20 MG PO (21:10)
[2021-03-09] MEDS ORDERED: NOVOLOG100 UNIT/1 SQ (21:12)
[2021-03-10] VITALS: BP 175/115
[2021-03-10 08:10] VITALS: BP 153/87
[2021-03-10 10:59] VITALS: BP 157/98
[2021-03-10 16:00] VITALS: BP 166/89
[2021-03-10 20:00] VITALS: BP 171/92
[2021-03-11] VITALS: BP 152/68
[2021-03-11 08:00] VITALS: BP 170/90
[2021-03-11 08:43] VITALS: BP 142/58
[2021-03-11 12:00] VITALS: BP 159/84
[2021-03-11] MEDS ORDERED: CIPROFLOXACIN500 M4 PO (13:46)
== END 2021-03-11 17:40 | DRG 690 ==
LOC: ED 12:31 → 5E 18:29 → EDHOLD 18:29 → 5E 19:04
PROVIDERS: Physician Assistant; ADMIT Internal Medicine; ATTEND Internal Medicine
DX: N39.0 Urinary tract infection, site not specified (principal); N12 Tubulo-interstitial nephritis, not specified as acute or chronic; K76.9 Liver disease, unspecified; I10 Essential (primary) hypertension; Z90.710 Acquired absence of both cervix and uterus; Z79.4 Long term (current) use of insulin; Z88.6 Allergy status to analgesic agent; Z88.8 Allergy status to other drugs, medicaments and biological substances; Z87.891 Personal history of nicotine dependence; Z83.3 Family history of diabetes mellitus; Z82.5 Family history of asthma and other chronic lower respiratory diseases; Z79.1 Long term (current) use of non-steroidal anti-inflammatories (NSAID); Z79.82 Long term (current) use of aspirin; Z79.899 Other long term (current) drug therapy

== ENCOUNTER 2021-03-16 10:23 | Inpatient (IN) | payer MEDICARE, MEDICAID ==
[2021-03-16] VITALS (8 sets, daily range): BP systolic 138–161; BP diastolic 90–104
[~2021-03-16] VITALS: Ht 160 cm; Wt 93.2 kg
[~2021-03-16 10:23] MED LIST changes: +CIPROFLOXACIN500 M4 PO; +CYMBALTA30 MG PO; +MYLANTA MAXIMU355 M1 PO; +NOVOLOG100 UNIT/1 SQ; +Ondansetron4 MG PO; +PEPCID20 MG PO; +REGLAN10 M1 PO; +TYLENOL325 M1 PO
[2021-03-16 10:46] LABS: BASO # 0.1 10*3/uL (0.0-0.1); BASO % 0.5 % (0.0-1.0); EOS # 0.2 10*3/uL (0.0-0.4); EOS % 1.5 % (1.0-4.0); HEMATOCRIT 47.6 % (37.0-47.0); LYMPH # 1.6 10*3/uL (1.3-4.4); LYMPH % 14.6 % (27.0-41.0); MEAN CORPUSCULAR HGB 28.9 pg (27.0-31.0); MEAN CORPUSCULAR HGB CONC 32.1 g/dl (33.0-37.0); MEAN PLATELET VOLUME 11.3 fl (9.6-12.3); MONO # 0.8 10*3/uL (0.1-1.0); MONO % 7.1 % (3.0-9.0); NEUT # 8.1 10*3/uL (2.3-7.9); NEUT % 76.2 % (47.0-73.0); PLATELET COUNT AUTOMATED 298 10*3/uL (130-400); RED BLOOD COUNT 5.29 10*6/uL (4.10-5.10); WHITE BLOOD COUNT 10.7 10*3/uL (4.8-10.8)
[2021-03-16 11:04] LABS: ALBUMIN 3.9 gm/dl (3.1-4.5); ALKALINE PHOSPHATASE 85 U/L (45-117); BUN 13 mg/dl (7-24); CHLORIDE 103 mmol/L (98-107); CREATININE 0.93 mg/dL (0.55-1.02); POTASSIUM 3.1 mmol/L (3.5-5.1); SGOT/AST 21 IU/L (3-35); SGPT/ALT 28 U/L (12-78); SODIUM 141 mmol/L (136-145)
[2021-03-16 21:15] LABS: BILIRUBIN Negative (Negative); BLOOD 3+ (Negative); CLARITY Cloudy (Clear); COLOR Yellow (Yellow); GLUCOSE Negative (Negative); KETONE 1+ (Negative); LEUKO ESTERASE 1+ (Negative); NITRITE Negative (Negative)
[2021-03-16 21:20] LABS: BACTERIA TRACE; CALCIUM OXALATE CRYSTALS 1+; EPITHELIAL CELLS 16-20; RBC TNTC rbc/hpf (0-2)
[2021-03-17 00:04] VITALS: BP 167/98
[2021-03-17 06:09] LABS: BASO # 0.1 10*3/uL (0.0-0.1); BASO % 0.6 % (0.0-1.0); EOS # 0.3 10*3/uL (0.0-0.4); EOS % 3.4 % (1.0-4.0); LYMPH # 2.4 10*3/uL (1.3-4.4); LYMPH % 25.6 % (27.0-41.0); MEAN CELL VOLUME 92.2 fl (81.0-99.0); MEAN CORPUSCULAR HGB 28.8 pg (27.0-31.0); MEAN CORPUSCULAR HGB CONC 31.3 g/dl (33.0-37.0); MEAN PLATELET VOLUME 11.9 fl (9.6-12.3); MONO # 0.9 10*3/uL (0.1-1.0); MONO % 9.7 % (3.0-9.0); NEUT # 5.7 10*3/uL (2.3-7.9); NEUT % 60.5 % (47.0-73.0); PLATELET COUNT AUTOMATED 264 10*3/uL (130-400); WHITE BLOOD COUNT 9.5 10*3/uL (4.8-10.8)
[2021-03-17 06:22] LABS: ALKALINE PHOSPHATASE 78 U/L (45-117); BUN 15 mg/dl (7-24); CHLORIDE 110 mmol/L (98-107); CREATININE 0.87 mg/dL (0.55-1.02); POTASSIUM 3.4 mmol/L (3.5-5.1); SGOT/AST 17 IU/L (3-35); SGPT/ALT 24 U/L (12-78); SODIUM 139 mmol/L (136-145)
[2021-03-17 08:09] VITALS: BP 145/75
[2021-03-17 12:26] VITALS: BP 154/90
[2021-03-17 16:01] VITALS: BP 152/81
[2021-03-17] MEDS ORDERED: CIPRO500 MG/5 M PO (16:44)
[2021-03-17 20:00] VITALS: BP 160/70
[2021-03-18] VITALS (8 sets, daily range): BP systolic 99–185; BP diastolic 49–89
[2021-03-19] VITALS: BP 175/68
[2021-03-19 06:23] LABS: BASO % 0.4 % (0.0-1.0); EOS # 0.4 10*3/uL (0.0-0.4); EOS % 3.9 % (1.0-4.0); HEMATOCRIT 42.8 % (37.0-47.0); LYMPH % 18.4 % (27.0-41.0); MEAN CORPUSCULAR HGB CONC 31.5 g/dl (33.0-37.0); MEAN PLATELET VOLUME 12.2 fl (9.6-12.3); MONO # 1.1 10*3/uL (0.1-1.0); MONO % 9.9 % (3.0-9.0); NEUT # 7.1 10*3/uL (2.3-7.9); PLATELET COUNT AUTOMATED 235 10*3/uL (130-400); RED BLOOD COUNT 4.65 10*6/uL (4.10-5.10); RED CELL DISTRI WIDTH 13.9 % (0-14.5); WHITE BLOOD COUNT 10.6 10*3/uL (4.8-10.8)
[2021-03-19 06:31] LABS: CHLORIDE 110 mmol/L (98-107); POTASSIUM 3.5 mmol/L (3.5-5.1); SGPT/ALT 19 U/L (12-78); SODIUM 141 mmol/L (136-145)
[2021-03-19 06:41] LABS: ALBUMIN 2.9 gm/dl (3.1-4.5); ALKALINE PHOSPHATASE 75 U/L (45-117); BUN 15 mg/dl (7-24); CREATININE 0.79 mg/dL (0.55-1.02); SGOT/AST 8 IU/L (3-35); TOTAL PROTEIN 6.5 gm/dL (6.4-8.2)
[2021-03-19 08:00] VITALS: BP 155/88
[2021-03-19 12:00] VITALS: BP 167/91
[2021-03-19 16:00] VITALS: BP 166/91
[2021-03-19 16:45] VITALS: BP 148/78
[2021-03-19 20:00] VITALS: BP 154/80
[2021-03-20] VITALS: BP 158/76
[2021-03-20 08:00] VITALS: BP 155/81
[2021-03-20 12:00] VITALS: BP 113/54
[2021-03-20] MEDS ORDERED: PANTOPRAZOLE SO40 MG PO (15:13)
[2021-03-20] MEDS ORDERED: REGLAN 5MG/5 MG/5 ML PO (15:15)
[2021-03-20] MEDS ORDERED: NOVOLOG100 UNIT/1 SQ (15:45)
== END 2021-03-20 17:43 | disposition home health service (06) | DRG 872 ==
LOC: ED 10:23 → 5E 11:27 → EDHOLD 11:27 → 5E 18:02
PROVIDERS: Internal Medicine; Internal Medicine Nephrology; Social Worker Clinical; Student in an Organized Health Care Education/Training Program; ADMIT Internal Medicine; ATTEND Internal Medicine
PROC: 0DB78ZX Excision of Stomach, Pylorus, Via Natural or Artificial Opening Endoscopic, Diagnostic (ICD-10-PCS; principal; 2021-03-18)
DX: A41.9 Sepsis, unspecified organism (principal); E44.0 Moderate protein-calorie malnutrition; N30.01 Acute cystitis with hematuria; E11.43 Type 2 diabetes mellitus with diabetic autonomic (poly)neuropathy; K29.60 Other gastritis without bleeding; S50.02XA Contusion of left elbow, initial encounter; E87.6 Hypokalemia; E80.6 Other disorders of bilirubin metabolism; E11.65 Type 2 diabetes mellitus with hyperglycemia; E11.40 Type 2 diabetes mellitus with diabetic neuropathy, unspecified; K21.9 Gastro-esophageal reflux disease without esophagitis; E53.8 Deficiency of other specified B group vitamins; K29.80 Duodenitis without bleeding; E66.9 Obesity, unspecified; E83.41 Hypermagnesemia; I12.9 Hypertensive chronic kidney disease with stage 1 through stage 4 chronic kidney disease, or unspecified chronic kidney disease; N18.30 Chronic kidney disease, stage 3 unspecified; R13.10 Dysphagia, unspecified; B96.1 Klebsiella pneumoniae [K. pneumoniae] as the cause of diseases classified elsewhere; K76.0 Fatty (change of) liver, not elsewhere classified; E11.22 Type 2 diabetes mellitus with diabetic chronic kidney disease; N20.0 Calculus of kidney; M25.422 Effusion, left elbow; D18.03 Hemangioma of intra-abdominal structures; K31.84 Gastroparesis; X58.XXXA Exposure to other specified factors, initial encounter; Y93.89 Activity, other specified; Z79.4 Long term (current) use of insulin; Z87.440 Personal history of urinary (tract) infections; Z88.8 Allergy status to other drugs, medicaments and biological substances; Z88.6 Allergy status to analgesic agent; Z91.048 Other nonmedicinal substance allergy status; Z90.710 Acquired absence of both cervix and uterus; Z87.891 Personal history of nicotine dependence; Z83.3 Family history of diabetes mellitus; Z82.3 Family history of stroke; Z82.49 Family history of ischemic heart disease and other diseases of the circulatory system; Z84.89 Family history of other specified conditions; Y92.89 Other specified places as the place of occurrence of the external cause; Y99.8 Other external cause status; Z86.73 Personal history of transient ischemic attack (TIA), and cerebral infarction without residual deficits; Z86.16 Personal history of COVID-19; Z87.442 Personal history of urinary calculi; Z79.82 Long term (current) use of aspirin; Z79.899 Other long term (current) drug therapy; Z79.02 Long term (current) use of antithrombotics/antiplatelets; Z90.49 Acquired absence of other specified parts of digestive tract; Z20.822 Contact with and (suspected) exposure to COVID-19; Z68.38 Body mass index [BMI] 38.0-38.9, adult

== ENCOUNTER 2021-04-01 10:16 | Emergency (ER) | payer MEDICARE, MEDICAID ==
[~2021-04-01] VITALS: Ht 157.4 cm; Wt 94.3 kg
[~2021-04-01 10:16] MED LIST changes: +CIPRO500 MG/5 M PO; +PANTOPRAZOLE SO40 MG PO; +REGLAN 5MG/5 MG/5 ML PO
[2021-04-01 11:15] LABS: BASO # 0.1 10*3/uL (0.0-0.1); BASO % 0.6 % (0.0-1.0); EOS # 0.3 10*3/uL (0.0-0.4); HEMATOCRIT 45.8 % (37.0-47.0); LYMPH % 18.8 % (27.0-41.0); MEAN CELL VOLUME 89.8 fl (81.0-99.0); MEAN CORPUSCULAR HGB 28.4 pg (27.0-31.0); MEAN CORPUSCULAR HGB CONC 31.7 g/dl (33.0-37.0); MEAN PLATELET VOLUME 11.6 fl (9.6-12.3); MONO # 0.9 10*3/uL (0.1-1.0); MONO % 8.2 % (3.0-9.0); NEUT # 7.3 10*3/uL (2.3-7.9); NEUT % 69.1 % (47.0-73.0); PLATELET COUNT AUTOMATED 245 10*3/uL (130-400); RED CELL DISTRI WIDTH 13.5 % (0-14.5); WHITE BLOOD COUNT 10.5 10*3/uL (4.8-10.8)
[2021-04-01 11:31] LABS: ALBUMIN 3.2 gm/dl (3.1-4.5); ALKALINE PHOSPHATASE 91 U/L (45-117); BUN 14 mg/dl (7-24); CHLORIDE 105 mmol/L (98-107); CREATININE 0.98 mg/dL (0.55-1.02); POTASSIUM 2.9 mmol/L (3.5-5.1); SGOT/AST 15 IU/L (3-35); SGPT/ALT 28 U/L (12-78); SODIUM 142 mmol/L (136-145); TOTAL PROTEIN 6.9 gm/dL (6.4-8.2)
[2021-04-01 11:32] LABS: TROPONIN I < 0.015 ng/ml (<0.045)
[2021-04-01] MEDS ORDERED: K-TAB20 MEQ PO (15:29)
== END 2021-04-01 15:38 | disposition home or self-care (01) ==
LOC: ED 10:16
PROVIDERS: Physician Assistant
DX: R03.0 Elevated blood-pressure reading, without diagnosis of hypertension (principal); Z88.8 Allergy status to other drugs, medicaments and biological substances; Z79.899 Other long term (current) drug therapy; Z79.4 Long term (current) use of insulin; Z79.82 Long term (current) use of aspirin; Z90.711 Acquired absence of uterus with remaining cervical stump; Z98.890 Other specified postprocedural states

== ENCOUNTER 2021-05-25 09:13 | Emergency (ER) | payer MEDICARE, MEDICAID ==
[~2021-05-25] VITALS: Ht 157.4 cm; Wt 93.0 kg
[~2021-05-25 09:13] MED LIST changes: +K-TAB20 MEQ PO
[2021-05-25] MEDS ORDERED: Carafate1 GM PO (10:04)
[2021-05-25] MEDS ORDERED: PROTONIX40 MG PO (10:04)
[2021-05-25] MEDS ORDERED: Phenergan25 MG PO (10:08)
== END 2021-05-25 10:21 | disposition home or self-care (01) ==
LOC: ED 09:13
DX: E11.43 Type 2 diabetes mellitus with diabetic autonomic (poly)neuropathy (principal); K31.84 Gastroparesis; R11.2 Nausea with vomiting, unspecified; Z88.8 Allergy status to other drugs, medicaments and biological substances; Z91.048 Other nonmedicinal substance allergy status; Z79.899 Other long term (current) drug therapy; Z79.4 Long term (current) use of insulin; Z79.82 Long term (current) use of aspirin; Z90.711 Acquired absence of uterus with remaining cervical stump; Z98.51 Tubal ligation status; Z87.891 Personal history of nicotine dependence

== ENCOUNTER → 2021-08-07 | Outpatient (CLI) | payer OTHER ==
[~2021-08-07] MED LIST changes: +Carafate1 GM PO; +Phenergan25 MG PO
== END | disposition home or self-care (01) ==
LOC: MAMMO 07-08 08:00
PROVIDERS: ATTEND Internal Medicine
DX: Z12.31 Encounter for screening mammogram for malignant neoplasm of breast (principal); N64.89 Other specified disorders of breast

== ENCOUNTER 2021-08-19 18:42 | Inpatient (IN) | payer OTHER ==
[~2021-08-19] VITALS: Ht 157.4 cm; Wt 96.6 kg
[2021-08-19 18:47] VITALS: BP 205/92
[2021-08-19 19:31] LABS: BASO % 0.2 % (0.0-1.0); EOS % 0.1 % (1.0-4.0); HEMATOCRIT 46.8 % (37.0-47.0); LYMPH # 1.1 10*3/uL (1.3-4.4); LYMPH % 5.7 % (27.0-41.0); MEAN CELL VOLUME 87.6 fl (81.0-99.0); MEAN CORPUSCULAR HGB 28.7 pg (27.0-31.0); MEAN CORPUSCULAR HGB CONC 32.7 g/dl (33.0-37.0); MEAN PLATELET VOLUME 11.5 fl (9.6-12.3); MONO # 1.2 10*3/uL (0.1-1.0); MONO % 6.4 % (3.0-9.0); NEUT # 16.4 10*3/uL (2.3-7.9); NEUT % 87.1 % (47.0-73.0); PLATELET COUNT AUTOMATED 275 10*3/uL (130-400); RED BLOOD COUNT 5.34 10*6/uL (4.10-5.10); RED CELL DISTRI WIDTH 13.7 % (0-14.5); WHITE BLOOD COUNT 18.8 10*3/uL (4.8-10.8)
[2021-08-19 19:47] LABS: ALBUMIN 3.4 gm/dl (3.1-4.5); CREATININE 1.24 mg/dL (0.55-1.02); POTASSIUM 3.2 mmol/L (3.5-5.1); TOTAL PROTEIN 7.5 gm/dL (6.4-8.2)
[2021-08-19 20:47] LABS: BILIRUBIN Negative (Negative); BLOOD 3+ (Negative); CLARITY Turbid (Clear); COLOR Yellow (Yellow); GLUCOSE 2+ (Negative); KETONE 1+ (Negative); LEUKO ESTERASE 3+ (Negative); NITRITE Positive (Negative); PH 5.5 (4.5-8.0)
[2021-08-19 20:54] LABS: WBC TNTC wbc/hpf (0-5)
[2021-08-19 20:55] LABS: BACTERIA 4+
[2021-08-20 00:17] VITALS: BP 115/88
== END 2021-08-20 03:31 | disposition short-term general hospital (02) | DRG 871 ==
LOC: ED 18:42 → EDHOLD 21:03
PROVIDERS: Internal Medicine; ADMIT Internal Medicine; ATTEND Internal Medicine
DX: A41.9 Sepsis, unspecified organism (principal); N17.0 Acute kidney failure with tubular necrosis; N30.01 Acute cystitis with hematuria; E44.0 Moderate protein-calorie malnutrition; N18.32 Chronic kidney disease, stage 3b; E87.6 Hypokalemia; E11.65 Type 2 diabetes mellitus with hyperglycemia; Z20.822 Contact with and (suspected) exposure to COVID-19; I12.9 Hypertensive chronic kidney disease with stage 1 through stage 4 chronic kidney disease, or unspecified chronic kidney disease; K21.9 Gastro-esophageal reflux disease without esophagitis; E11.22 Type 2 diabetes mellitus with diabetic chronic kidney disease; E66.9 Obesity, unspecified; R65.20 Severe sepsis without septic shock; Z86.73 Personal history of transient ischemic attack (TIA), and cerebral infarction without residual deficits; Z90.710 Acquired absence of both cervix and uterus; Z88.8 Allergy status to other drugs, medicaments and biological substances; Z83.3 Family history of diabetes mellitus; Z82.5 Family history of asthma and other chronic lower respiratory diseases; Z79.1 Long term (current) use of non-steroidal anti-inflammatories (NSAID); Z79.82 Long term (current) use of aspirin; Z79.4 Long term (current) use of insulin; Z79.899 Other long term (current) drug therapy

== ENCOUNTER 2021-09-11 09:45 | Emergency (ER) | payer OTHER ==
[~2021-09-11] VITALS: Wt 96.6 kg
[2021-09-11 12:17] LABS: BASO # 0.1 10*3/uL (0.0-0.1); BASO % 0.3 % (0.0-1.0); EOS # 0.5 10*3/uL (0.0-0.4); EOS % 3.1 % (1.0-4.0); HEMATOCRIT 46.5 % (37.0-47.0); LYMPH # 2.1 10*3/uL (1.3-4.4); LYMPH % 13.8 % (27.0-41.0); MEAN CELL VOLUME 90.5 fl (81.0-99.0); MEAN CORPUSCULAR HGB 28.6 pg (27.0-31.0); MEAN CORPUSCULAR HGB CONC 31.6 g/dl (33.0-37.0); MONO # 0.9 10*3/uL (0.1-1.0); MONO % 5.8 % (3.0-9.0); NEUT # 11.7 10*3/uL (2.3-7.9); NEUT % 76.7 % (47.0-73.0); PLATELET COUNT AUTOMATED 339 10*3/uL (130-400); RED BLOOD COUNT 5.14 10*6/uL (4.10-5.10); RED CELL DISTRI WIDTH 14.3 % (0-14.5); WHITE BLOOD COUNT 15.3 10*3/uL (4.8-10.8)
[2021-09-11 12:23] LABS: CLARITY Turbid (Clear); GLUCOSE Negative (Negative); KETONE Negative (Negative); LEUKO ESTERASE 3+ (Negative); SPECIFIC GRAVITY 1.025 (1.001-1.030); UROBILINOGEN 0.2 E.U./dl (0.0-1.0)
[2021-09-11 12:28] LABS: BILIRUBIN Negative (Negative); BLOOD 3+ (Negative); COLOR Orange (Yellow); NITRITE Negative (Negative); PH 5.5 (4.5-8.0)
[2021-09-11 12:32] LABS: ALBUMIN 3.3 gm/dl (3.1-4.5); CREATININE 1.27 mg/dL (0.55-1.02); POTASSIUM 3.4 mmol/L (3.5-5.1); TOTAL PROTEIN 7.6 gm/dL (6.4-8.2)
[2021-09-11 12:33] LABS: RBC TNTC rbc/hpf (0-2)
[2021-09-11 12:36] LABS: WBC TNTC wbc/hpf (0-5)
[2021-09-11 12:39] LABS: BACTERIA 2+; YEAST TRACE
== END 2021-09-11 13:33 | disposition short-term general hospital (02) ==
LOC: ED 09:45
PROVIDERS: Physician Assistant
DX: A41.9 Sepsis, unspecified organism (principal); N39.0 Urinary tract infection, site not specified; R65.20 Severe sepsis without septic shock; Z88.8 Allergy status to other drugs, medicaments and biological substances; Z79.899 Other long term (current) drug therapy; Z79.82 Long term (current) use of aspirin; Z87.891 Personal history of nicotine dependence

== ENCOUNTER 2021-09-20 10:01 | Emergency (ER) | payer OTHER ==
[~2021-09-20] VITALS: Ht 157.4 cm; Wt 90.7 kg
[2021-09-20 10:56] LABS: BASO % 0.2 % (0.0-1.0); EOS # 0.2 10*3/uL (0.0-0.4); EOS % 1.7 % (1.0-4.0); HEMATOCRIT 41.2 % (37.0-47.0); LYMPH # 0.9 10*3/uL (1.3-4.4); LYMPH % 8.9 % (27.0-41.0); MEAN CELL VOLUME 89.6 fl (81.0-99.0); MEAN CORPUSCULAR HGB 28.5 pg (27.0-31.0); MEAN CORPUSCULAR HGB CONC 31.8 g/dl (33.0-37.0); MEAN PLATELET VOLUME 11.5 fl (9.6-12.3); MONO # 0.8 10*3/uL (0.1-1.0); MONO % 7.9 % (3.0-9.0); NEUT # 7.7 10*3/uL (2.3-7.9); NEUT % 81.1 % (47.0-73.0); PLATELET COUNT AUTOMATED 267 10*3/uL (130-400); RED CELL DISTRI WIDTH 14.6 % (0-14.5); WHITE BLOOD COUNT 9.5 10*3/uL (4.8-10.8)
[2021-09-20 11:07] LABS: ACT PARTIAL THROMBO TIME 25.6 SECONDS (20.0-32.1); INTERNATIONAL NORM RATIO 1.1 (2.0-3.5)
[2021-09-20 11:12] LABS: CREATININE 1.57 mg/dL (0.55-1.02); POTASSIUM 2.8 mmol/L (3.5-5.1)
== END 2021-09-20 16:34 | disposition short-term general hospital (02) ==
LOC: ED 10:01
PROVIDERS: Emergency Medicine
DX: N17.9 Acute kidney failure, unspecified (principal); E87.6 Hypokalemia; N13.30 Unspecified hydronephrosis; I10 Essential (primary) hypertension; K21.9 Gastro-esophageal reflux disease without esophagitis; E11.9 Type 2 diabetes mellitus without complications; N18.30 Chronic kidney disease, stage 3 unspecified; Z88.8 Allergy status to other drugs, medicaments and biological substances; Z79.899 Other long term (current) drug therapy; Z79.82 Long term (current) use of aspirin

== ENCOUNTER 2021-09-25 06:05 | Emergency (ER) | payer OTHER ==
[~2021-09-25] VITALS: Ht 162.5 cm; Wt 75.7 kg
[2021-09-25 07:16] LABS: BASO % 0.2 % (0.0-1.0); EOS % 0.2 % (1.0-4.0); HEMATOCRIT 41.6 % (37.0-47.0); LYMPH # 0.7 10*3/uL (1.3-4.4); LYMPH % 5.6 % (27.0-41.0); MEAN CELL VOLUME 87.8 fl (81.0-99.0); MEAN CORPUSCULAR HGB 28.5 pg (27.0-31.0); MEAN CORPUSCULAR HGB CONC 32.5 g/dl (33.0-37.0); MEAN PLATELET VOLUME 11.6 fl (9.6-12.3); MONO # 0.5 10*3/uL (0.1-1.0); NEUT # 11.1 10*3/uL (2.3-7.9); NEUT % 89.4 % (47.0-73.0); PLATELET COUNT AUTOMATED 274 10*3/uL (130-400); RED BLOOD COUNT 4.74 10*6/uL (4.10-5.10); RED CELL DISTRI WIDTH 13.9 % (0-14.5); WHITE BLOOD COUNT 12.4 10*3/uL (4.8-10.8)
[2021-09-25 07:32] LABS: ALKALINE PHOSPHATASE 70 U/L (45-117); BUN 8 mg/dl (7-24); CHLORIDE 105 mmol/L (98-107); CREATININE 0.91 mg/dL (0.55-1.02); LIPASE 168 U/L (73-393); POTASSIUM 2.9 mmol/L (3.5-5.1); SGOT/AST 11 IU/L (3-35); SGPT/ALT 13 U/L (12-78); SODIUM 140 mmol/L (136-145)
== END 2021-09-25 09:41 | disposition home or self-care (01) ==
LOC: ED 06:05
PROVIDERS: Student in an Organized Health Care Education/Training Program
DX: K52.9 Noninfective gastroenteritis and colitis, unspecified (principal); Z88.8 Allergy status to other drugs, medicaments and biological substances; Z79.899 Other long term (current) drug therapy; Z79.82 Long term (current) use of aspirin; Z87.891 Personal history of nicotine dependence

== ENCOUNTER 2021-10-02 11:30 | Emergency (ER) | payer OTHER ==
[~2021-10-02] VITALS: Ht 162.5 cm; Wt 88.0 kg
[2021-10-02 13:20] LABS: BASO % 0.2 % (0.0-1.0); EOS # 0.1 10*3/uL (0.0-0.4); EOS % 0.5 % (1.0-4.0); HEMATOCRIT 42.8 % (37.0-47.0); LYMPH # 0.6 10*3/uL (1.3-4.4); LYMPH % 3.7 % (27.0-41.0); MEAN CELL VOLUME 88.8 fl (81.0-99.0); MEAN CORPUSCULAR HGB CONC 32.7 g/dl (33.0-37.0); MEAN PLATELET VOLUME 12.1 fl (9.6-12.3); MONO % 6.5 % (3.0-9.0); NEUT # 13.4 10*3/uL (2.3-7.9); NEUT % 88.8 % (47.0-73.0); PLATELET COUNT AUTOMATED 275 10*3/uL (130-400); RED BLOOD COUNT 4.82 10*6/uL (4.10-5.10); RED CELL DISTRI WIDTH 14.3 % (0-14.5)
[2021-10-02 13:36] LABS: ALKALINE PHOSPHATASE 92 U/L (45-117); BUN 15 mg/dl (7-24); CHLORIDE 105 mmol/L (98-107); CREATININE 1.03 mg/dL (0.55-1.02); LIPASE 135 U/L (73-393); POTASSIUM 3.2 mmol/L (3.5-5.1); SGOT/AST 9 IU/L (3-35); SGPT/ALT 18 U/L (12-78); SODIUM 143 mmol/L (136-145); TOTAL PROTEIN 7.4 gm/dL (6.4-8.2)
[2021-10-02 17:30] LABS: BILIRUBIN Negative (Negative); BLOOD 3+ (Negative); CLARITY Cloudy (Clear); COLOR Orange (Yellow); GLUCOSE Negative (Negative); KETONE Negative (Negative); LEUKO ESTERASE 3+ (Negative); NITRITE Negative (Negative); PH 6.5 (4.5-8.0); SPECIFIC GRAVITY 1.015 (1.001-1.030); UROBILINOGEN 0.2 E.U./dl (0.0-1.0)
[2021-10-02 17:43] LABS: RBC TNTC rbc/hpf (0-2); WBC TNTC wbc/hpf (0-5)
[2021-10-02] MEDS ORDERED: SEPTDS PO (17:50)
== END 2021-10-02 21:15 | disposition home or self-care (01) ==
LOC: ED 11:30
PROVIDERS: Physician Assistant
DX: N39.0 Urinary tract infection, site not specified (principal)

== ENCOUNTER 2021-11-24 10:27 | Emergency (ER) | payer OTHER ==
[~2021-11-24] VITALS: Ht 157.4 cm; Wt 119.7 kg
[~2021-11-24 10:27] MED LIST changes: +SEPTDS PO
== END 2021-11-24 12:23 | disposition home or self-care (01) ==
LOC: ED 10:27
DX: H61.21 Impacted cerumen, right ear (principal); H92.22 Otorrhagia, left ear; K21.9 Gastro-esophageal reflux disease without esophagitis; I12.9 Hypertensive chronic kidney disease with stage 1 through stage 4 chronic kidney disease, or unspecified chronic kidney disease; E11.22 Type 2 diabetes mellitus with diabetic chronic kidney disease; N18.32 Chronic kidney disease, stage 3b; Z88.8 Allergy status to other drugs, medicaments and biological substances; Z79.899 Other long term (current) drug therapy; Z79.82 Long term (current) use of aspirin; Z86.73 Personal history of transient ischemic attack (TIA), and cerebral infarction without residual deficits; Z87.891 Personal history of nicotine dependence; Z98.890 Other specified postprocedural states; Z98.51 Tubal ligation status; Z90.711 Acquired absence of uterus with remaining cervical stump

== ENCOUNTER 2021-12-19 23:31 | Emergency (ER) | payer OTHER ==
[~2021-12-19] VITALS: Ht 157.4 cm; Wt 84.8 kg
[2021-12-20 00:20] LABS: BASO % 0.3 % (0.0-1.0); EOS # 0.2 10*3/uL (0.0-0.4); EOS % 1.2 % (1.0-4.0); HEMATOCRIT 43.7 % (37.0-47.0); LYMPH # 1.4 10*3/uL (1.3-4.4); LYMPH % 10.7 % (27.0-41.0); MEAN CELL VOLUME 90.1 fl (81.0-99.0); MEAN CORPUSCULAR HGB 28.9 pg (27.0-31.0); MEAN PLATELET VOLUME 11.1 fl (9.6-12.3); MONO # 0.8 10*3/uL (0.1-1.0); MONO % 5.7 % (3.0-9.0); NEUT % 81.7 % (47.0-73.0); PLATELET COUNT AUTOMATED 289 10*3/uL (130-400); RED BLOOD COUNT 4.85 10*6/uL (4.10-5.10); RED CELL DISTRI WIDTH 15.1 % (0-14.5); WHITE BLOOD COUNT 13.4 10*3/uL (4.8-10.8)
[2021-12-20 00:39] LABS: ALKALINE PHOSPHATASE 76 U/L (45-117); BUN 13 mg/dl (7-24); CHLORIDE 106 mmol/L (98-107); CREATININE 1.06 mg/dL (0.55-1.02); POTASSIUM 2.8 mmol/L (3.5-5.1); SGOT/AST 14 IU/L (3-35); SGPT/ALT 23 U/L (12-78); SODIUM 142 mmol/L (136-145); TOTAL PROTEIN 7.3 gm/dL (6.4-8.2)
[2021-12-20 03:25] LABS: BILIRUBIN Negative (Negative); BLOOD Negative (Negative); CLARITY Clear (Clear); COLOR Yellow (Yellow); GLUCOSE Negative (Negative); KETONE 1+ (Negative); LEUKO ESTERASE 1+ (Negative); NITRITE Negative (Negative); PH 5.5 (4.5-8.0)
[2021-12-20 03:34] LABS: EPITHELIAL CELLS 31-40; WBC 21-30 wbc/hpf (0-5)
[2021-12-20 03:35] LABS: BACTERIA TRACE
[2021-12-20 08:03] LABS: BASO % 0.4 % (0.0-1.0); EOS # 0.2 10*3/uL (0.0-0.4); EOS % 1.8 % (1.0-4.0); HEMATOCRIT 39.8 % (37.0-47.0); LYMPH # 2.3 10*3/uL (1.3-4.4); LYMPH % 20.2 % (27.0-41.0); MEAN CELL VOLUME 90.2 fl (81.0-99.0); MEAN CORPUSCULAR HGB CONC 32.2 g/dl (33.0-37.0); MEAN PLATELET VOLUME 11.1 fl (9.6-12.3); MONO # 0.9 10*3/uL (0.1-1.0); MONO % 7.5 % (3.0-9.0); NEUT # 7.9 10*3/uL (2.3-7.9); NEUT % 69.8 % (47.0-73.0); PLATELET COUNT AUTOMATED 255 10*3/uL (130-400); RED BLOOD COUNT 4.41 10*6/uL (4.10-5.10); RED CELL DISTRI WIDTH 15.2 % (0-14.5); WHITE BLOOD COUNT 11.4 10*3/uL (4.8-10.8)
[2021-12-20 08:16] LABS: BUN 13 mg/dl (7-24); CHLORIDE 112 mmol/L (98-107); CREATININE 0.88 mg/dL (0.55-1.02); SODIUM 144 mmol/L (136-145)
[2021-12-20 08:21] LABS: POTASSIUM 3.3 mmol/L (3.5-5.1)
== END 2021-12-20 11:14 | disposition home or self-care (01) ==
LOC: ED 23:31
PROVIDERS: Emergency Medicine
DX: E87.6 Hypokalemia (principal); K31.84 Gastroparesis; K21.9 Gastro-esophageal reflux disease without esophagitis; I12.9 Hypertensive chronic kidney disease with stage 1 through stage 4 chronic kidney disease, or unspecified chronic kidney disease; E11.22 Type 2 diabetes mellitus with diabetic chronic kidney disease; N18.30 Chronic kidney disease, stage 3 unspecified; E66.9 Obesity, unspecified; Z88.8 Allergy status to other drugs, medicaments and biological substances; Z79.899 Other long term (current) drug therapy

== ENCOUNTER 2021-12-31 14:08 | Emergency (ER) | payer OTHER ==
[~2021-12-31] VITALS: Ht 157.4 cm; Wt 84.4 kg
[2021-12-31 15:24] LABS: BASO % 0.3 % (0.0-1.0); EOS # 0.3 10*3/uL (0.0-0.4); EOS % 2.7 % (1.0-4.0); HEMATOCRIT 45.4 % (37.0-47.0); LYMPH # 2.4 10*3/uL (1.3-4.4); LYMPH % 20.2 % (27.0-41.0); MEAN CELL VOLUME 88.5 fl (81.0-99.0); MEAN CORPUSCULAR HGB 28.3 pg (27.0-31.0); MEAN CORPUSCULAR HGB CONC 31.9 g/dl (33.0-37.0); MEAN PLATELET VOLUME 11.5 fl (9.6-12.3); MONO # 1.1 10*3/uL (0.1-1.0); NEUT # 7.9 10*3/uL (2.3-7.9); NEUT % 67.6 % (47.0-73.0); PLATELET COUNT AUTOMATED 288 10*3/uL (130-400); RED BLOOD COUNT 5.13 10*6/uL (4.10-5.10); RED CELL DISTRI WIDTH 15.2 % (0-14.5); WHITE BLOOD COUNT 11.7 10*3/uL (4.8-10.8)
[2021-12-31 15:35] LABS: ACT PARTIAL THROMBO TIME 26.4 SECONDS (20.0-32.1)
[2021-12-31 15:40] LABS: ALKALINE PHOSPHATASE 83 U/L (45-117); BUN 16 mg/dl (7-24); CHLORIDE 109 mmol/L (98-107); CREATININE 0.94 mg/dL (0.55-1.02); LIPASE 346 U/L (73-393); SGOT/AST 7 IU/L (3-35); SGPT/ALT 18 U/L (12-78); SODIUM 141 mmol/L (136-145); TOTAL PROTEIN 7.1 gm/dL (6.4-8.2)
== END 2021-12-31 17:39 | disposition home or self-care (01) ==
LOC: ED 14:08
PROVIDERS: Physician Assistant
DX: I10 Essential (primary) hypertension (principal); Z88.8 Allergy status to other drugs, medicaments and biological substances; Z79.899 Other long term (current) drug therapy; Z98.890 Other specified postprocedural states; Z98.51 Tubal ligation status; Z87.891 Personal history of nicotine dependence

== ENCOUNTER 2022-01-24 17:25 | Emergency (ER) | payer OTHER ==
[~2022-01-24] VITALS: Wt 80.7 kg
== END 2022-01-24 20:55 | disposition home or self-care (01) ==
LOC: ED 17:25
DX: K59.00 Constipation, unspecified (principal); Z87.891 Personal history of nicotine dependence; Z79.899 Other long term (current) drug therapy; Z88.6 Allergy status to analgesic agent

== ENCOUNTER 2022-06-30 15:36 | Emergency (ER) | payer OTHER ==
[~2022-06-30] VITALS: Ht 157.4 cm; Wt 91.6 kg
[~2022-06-30 15:36] MED LIST changes: +AMLODIPINE BESY10 MG PO; +LABETALOL HCL100 MG PO; +METOCLOPRAMIDE H5 M1 PO; +ONDANSETRON HYDR8 MG PO; +POTASSIUM CHLO20 ME4 PO
[2022-06-30] MEDS ORDERED: CITROMA296 ML PO (17:50)
[2022-06-30] MEDS ORDERED: MIRALAX POWDER17 G1 PO (17:50)
== END 2022-06-30 18:32 | disposition home or self-care (01) ==
LOC: ED 15:36
DX: K59.00 Constipation, unspecified (principal); Z88.8 Allergy status to other drugs, medicaments and biological substances; Z79.899 Other long term (current) drug therapy; Z79.82 Long term (current) use of aspirin; Z90.710 Acquired absence of both cervix and uterus; Z98.890 Other specified postprocedural states; Z87.891 Personal history of nicotine dependence

== ENCOUNTER 2022-10-14 03:07 | Emergency (ER) | payer OTHER ==
[~2022-10-14 03:07] MED LIST changes: +CITROMA296 ML PO; +MIRALAX POWDER17 G1 PO
[2022-10-14 03:21] LABS: BASO % 0.2 % (0.0-1.0); EOS # 0.1 10*3/uL (0.0-0.4); EOS % 0.9 % (1.0-4.0); LYMPH # 1.2 10*3/uL (1.3-4.4); LYMPH % 8.9 % (27.0-41.0); MEAN CELL VOLUME 90.2 fl (81.0-99.0); MEAN CORPUSCULAR HGB 30.1 pg (27.0-31.0); MEAN CORPUSCULAR HGB CONC 33.4 g/dl (33.0-37.0); MEAN PLATELET VOLUME 11.5 fl (9.6-12.3); MONO # 0.7 10*3/uL (0.1-1.0); MONO % 5.1 % (3.0-9.0); NEUT # 11.5 10*3/uL (2.3-7.9); NEUT % 84.5 % (47.0-73.0); PLATELET COUNT AUTOMATED 244 10*3/uL (130-400); RED BLOOD COUNT 4.88 10*6/uL (4.10-5.10); RED CELL DISTRI WIDTH 14.3 % (0-14.5); WHITE BLOOD COUNT 13.6 10*3/uL (4.8-10.8)
[2022-10-14 03:42] LABS: ALKALINE PHOSPHATASE 68 U/L (46-116); BUN 23 mg/dl (9-23); CHLORIDE 106 mmol/L (98-107); POTASSIUM 3.4 mmol/L (3.4-5.1); SGPT/ALT 13 U/L (10-49); TOTAL PROTEIN 7.2 gm/dL (6.0-8.0)
[2022-10-14 04:19] LABS: BILIRUBIN Negative (Negative); BLOOD Negative (Negative); CLARITY Clear (Clear); COLOR Yellow (Yellow); GLUCOSE Negative (Negative); KETONE Negative (Negative); LEUKO ESTERASE Negative (Negative); NITRITE Negative (Negative); SPECIFIC GRAVITY 1.015 (1.001-1.030); URINE AMPHETAMINES Negative (1000ng/ml); URINE BARBITURATES Negative (200ng/ml); URINE BENZODIAZEPINES Negative (200ng/ml); URINE CANNABINOIDS (THC) Negative (50ng/ml); URINE COCAINE Negative (300ng/ml); URINE METHADONE Negative (300ng/ml); URINE OPIATES Negative (300ng/ml); URINE PHENCYCLIDINE Negative (25ng/ml); UROBILINOGEN 0.2 E.U./dl (0.0-1.0)
[2022-10-14 04:45] LABS: FINE GRANULAR CAST 0-2; RBC 0-2 rbc/hpf (0-2); WBC 0-2 wbc/hpf (0-5)
== END 2022-10-14 09:45 | disposition home or self-care (01) ==
LOC: ED 03:07
PROVIDERS: Internal Medicine
DX: E11.649 Type 2 diabetes mellitus with hypoglycemia without coma (principal); Z88.7 Allergy status to serum and vaccine; Z88.8 Allergy status to other drugs, medicaments and biological substances; Z98.51 Tubal ligation status; Z90.711 Acquired absence of uterus with remaining cervical stump; Z87.891 Personal history of nicotine dependence; Z79.899 Other long term (current) drug therapy

== ENCOUNTER → 2022-10-23 | Outpatient (CLI) | payer OTHER | END | disposition home or self-care (01) | LOC: MAMMO 11:00 | PROVIDERS: ATTEND Internal Medicine | DX: Z12.31 Encounter for screening mammogram for malignant neoplasm of breast (principal) ==

== ENCOUNTER 2022-12-25 09:47 | Inpatient (IN) | payer OTHER ==
[~2022-12-25] VITALS: Ht 157.5 cm; Wt 74.9 kg
[~2022-12-25 09:47] MED LIST changes: +NEURONTIN100 MG PO
[2022-12-25 09:50] VITALS: BP 152/102
[2022-12-25] MEDS ORDERED: PAMELOR75 MG PO (10:09)
[2022-12-25] MEDS ORDERED: ONDANSETRON HYDR4 M1 PO (10:11)
[2022-12-25] MEDS ORDERED: MIRALAX17 GM PO (10:12)
[2022-12-25 10:20] LABS: BASO # 0.1 10*3/uL (0.0-0.1); BASO % 0.3 % (0.0-1.0); EOS # 0.5 10*3/uL (0.0-0.4); EOS % 2.6 % (1.0-4.0); LYMPH # 1.3 10*3/uL (1.3-4.4); LYMPH % 6.8 % (27.0-41.0); MEAN CELL VOLUME 93.1 fl (81.0-99.0); MEAN CORPUSCULAR HGB 29.3 pg (27.0-31.0); MEAN CORPUSCULAR HGB CONC 31.4 g/dl (33.0-37.0); MEAN PLATELET VOLUME 11.8 fl (9.6-12.3); MONO # 1.2 10*3/uL (0.1-1.0); MONO % 6.5 % (3.0-9.0); NEUT # 15.8 10*3/uL (2.3-7.9); NEUT % 83.4 % (47.0-73.0); PLATELET COUNT AUTOMATED 270 10*3/uL (130-400); RED BLOOD COUNT 4.51 10*6/uL (4.10-5.10); RED CELL DISTRI WIDTH 13.6 % (0-14.5); WHITE BLOOD COUNT 18.9 10*3/uL (4.8-10.8)
[2022-12-25 10:37] LABS: ALKALINE PHOSPHATASE 66 U/L (46-116); BUN 23 mg/dl (9-23); CHLORIDE 108 mmol/L (98-107); POTASSIUM 3.5 mmol/L (3.4-5.1); SGPT/ALT 14 U/L (10-49)
[2022-12-25 11:03] LABS: BILIRUBIN Negative (Negative); BLOOD 3+ (Negative); CLARITY Turbid (Clear); COLOR Yellow (Yellow); GLUCOSE Negative (Negative); KETONE Negative (Negative); LEUKO ESTERASE 3+ (Negative); NITRITE Negative (Negative); PH 5.5 (4.5-8.0); SPECIFIC GRAVITY >= 1.030 (1.001-1.030)
[2022-12-25 11:14] LABS: BACTERIA 2+; CALCIUM OXALATE CRYSTALS Trace; EPITHELIAL CELLS TNTC; RBC TNTC rbc/hpf (0-2); WBC TNTC wbc/hpf (0-5)
[2022-12-25 11:57] VITALS: BP 145/94
[2022-12-25 14:10] VITALS: BP 133/72
[2022-12-25] MEDS ORDERED: CALMOSEPTINE OI71 GM T (15:40)
[2022-12-25] MEDS ORDERED: CITROMA296 ML PO (15:48)
[2022-12-25 16:00] VITALS: BP 154/95
[2022-12-25 20:00] VITALS: BP 152/105
[2022-12-26] VITALS: BP 145/90
[2022-12-26 06:23] LABS: BASO % 0.3 % (0.0-1.0); EOS # 0.7 10*3/uL (0.0-0.4); HEMATOCRIT 38.3 % (37.0-47.0); LYMPH # 1.7 10*3/uL (1.3-4.4); MEAN CELL VOLUME 93.9 fl (81.0-99.0); MEAN CORPUSCULAR HGB 29.4 pg (27.0-31.0); MEAN CORPUSCULAR HGB CONC 31.3 g/dl (33.0-37.0); MEAN PLATELET VOLUME 12.2 fl (9.6-12.3); MONO # 0.9 10*3/uL (0.1-1.0); MONO % 6.7 % (3.0-9.0); NEUT # 10.7 10*3/uL (2.3-7.9); NEUT % 75.7 % (47.0-73.0); PLATELET COUNT AUTOMATED 258 10*3/uL (130-400); RED BLOOD COUNT 4.08 10*6/uL (4.10-5.10); RED CELL DISTRI WIDTH 13.5 % (0-14.5); WHITE BLOOD COUNT 14.1 10*3/uL (4.8-10.8)
[2022-12-26 06:38] LABS: ALKALINE PHOSPHATASE 57 U/L (46-116); BUN 21 mg/dl (9-23); CHLORIDE 109 mmol/L (98-107); POTASSIUM 3.4 mmol/L (3.4-5.1); SGPT/ALT 9 U/L (10-49); TOTAL PROTEIN 6.1 gm/dL (6.0-8.0)
[2022-12-26 09:00] VITALS: BP 128/67
[2022-12-26 12:00] VITALS: BP 121/80
[2022-12-26 16:00] VITALS: BP 122/82
[2022-12-26 20:00] VITALS: BP 107/65
[2022-12-27] VITALS: BP 124/80
[2022-12-27 08:00] VITALS: BP 144/93
[2022-12-27 12:00] VITALS: BP 140/92
[2022-12-27 16:00] VITALS: BP 93/64
[2022-12-27 20:00] VITALS: BP 133/76
[2022-12-28] VITALS: BP 152/85
[2022-12-28 08:00] VITALS: BP 154/90
[2022-12-28 12:00] VITALS: BP 115/75
[2022-12-28 16:00] VITALS: BP 109/63
[2022-12-28 20:00] VITALS: BP 133/79
[2022-12-29] VITALS: BP 140/88
[2022-12-29] MEDS ORDERED: ASPIRIN ADULT L81 M1 PO (00:38)
[2022-12-29] MEDS ORDERED: NORMODYNE,TRAN100 MG PO (00:40)
[2022-12-29] MEDS ORDERED: METOCLOPRAMIDE H5 M2 PO (00:41)
[2022-12-29] MEDS ORDERED: ATORVASTATIN CA40 M1 PO (00:42)
[2022-12-29 08:08] VITALS: BP 121/83
[2022-12-29 09:22] LABS: BILIRUBIN Negative (Negative); BLOOD 2+ (Negative); CLARITY Turbid (Clear); COLOR Yellow (Yellow); GLUCOSE Negative (Negative); KETONE Negative (Negative); LEUKO ESTERASE 3+ (Negative); NITRITE Negative (Negative); UROBILINOGEN 0.2 E.U./dl (0.0-1.0)
[2022-12-29 09:45] LABS: RBC TNTC rbc/hpf (0-2); WBC TNTC wbc/hpf (0-5)
[2022-12-29 09:46] LABS: YEAST 2+
[2022-12-29 10:07] LABS: BASO % 0.3 % (0.0-1.0); EOS # 0.1 10*3/uL (0.0-0.4); EOS % 0.6 % (1.0-4.0); HEMATOCRIT 40.6 % (37.0-47.0); LYMPH # 1.7 10*3/uL (1.3-4.4); LYMPH % 10.4 % (27.0-41.0); MEAN CELL VOLUME 92.7 fl (81.0-99.0); MEAN CORPUSCULAR HGB 29.2 pg (27.0-31.0); MEAN CORPUSCULAR HGB CONC 31.5 g/dl (33.0-37.0); MEAN PLATELET VOLUME 11.9 fl (9.6-12.3); MONO # 1.4 10*3/uL (0.1-1.0); NEUT # 12.6 10*3/uL (2.3-7.9); NEUT % 79.1 % (47.0-73.0); PLATELET COUNT AUTOMATED 267 10*3/uL (130-400); RED BLOOD COUNT 4.38 10*6/uL (4.10-5.10); RED CELL DISTRI WIDTH 13.5 % (0-14.5); WHITE BLOOD COUNT 15.9 10*3/uL (4.8-10.8)
[2022-12-29 10:22] LABS: ALKALINE PHOSPHATASE 55 U/L (46-116); BUN 21 mg/dl (9-23); CHLORIDE 109 mmol/L (98-107); POTASSIUM 3.8 mmol/L (3.4-5.1); SGPT/ALT 12 U/L (10-49); TOTAL PROTEIN 6.3 gm/dL (6.0-8.0)
[2022-12-29 12:00] VITALS: BP 132/79
[2022-12-29 16:00] VITALS: BP 134/82
[2022-12-29 20:00] VITALS: BP 151/82
[2022-12-30] VITALS: BP 147/85
[2022-12-30 08:41] VITALS: BP 118/87
[2022-12-30 12:53] VITALS: BP 132/80
[2022-12-30 16:00] VITALS: BP 138/88
[2022-12-30 20:00] VITALS: BP 133/86
[2022-12-31] VITALS: BP 147/94
[2022-12-31 05:27] LABS: ALKALINE PHOSPHATASE 56 U/L (46-116); CHLORIDE 112 mmol/L (98-107); SGPT/ALT 17 U/L (10-49); TOTAL PROTEIN 6.5 gm/dL (6.0-8.0)
[2022-12-31 06:02] LABS: BUN 31 mg/dl (9-23)
[2022-12-31 06:14] LABS: HEMATOCRIT 43.4 % (37.0-47.0); MEAN CELL VOLUME 93.3 fl (81.0-99.0); MEAN CORPUSCULAR HGB 28.4 pg (27.0-31.0); MEAN CORPUSCULAR HGB CONC 30.4 g/dl (33.0-37.0); MEAN PLATELET VOLUME 12.6 fl (9.6-12.3); PLATELET COUNT AUTOMATED 307 10*3/uL (130-400); RED BLOOD COUNT 4.65 10*6/uL (4.10-5.10); RED CELL DISTRI WIDTH 13.8 % (0-14.5); WHITE BLOOD COUNT 21.2 10*3/uL (4.8-10.8)
[2022-12-31 06:16] LABS: MANUAL DIFF REFLEX YES
[2022-12-31 07:28] LABS: BURR CELLS FEW; OVALOCYTES FEW; PLATELET SUFFICIENCY NORMAL (NORMAL); SCHISTOCYTES FEW; TOTAL CELLS COUNTED 100 #CELLS; TOXIC GRANULATION SLIGHT
[2022-12-31 07:29] LABS: POLYCHROMASIA SLIGHT; ROULEAUX SLIGHT
[2022-12-31 08:00] VITALS: BP 147/89
[2022-12-31 12:00] VITALS: BP 130/90
[2022-12-31 16:00] VITALS: BP 107/73
[2022-12-31 20:00] VITALS: BP 122/90
[2023-01-01] VITALS: BP 136/68; BP 99/50
[2023-01-01 06:08] LABS: BASO # 0.1 10*3/uL (0.0-0.1); BASO % 0.3 % (0.0-1.0); EOS % 0.1 % (1.0-4.0); HEMATOCRIT 44.6 % (37.0-47.0); LYMPH # 1.8 10*3/uL (1.3-4.4); LYMPH % 11.1 % (27.0-41.0); MEAN CELL VOLUME 94.7 fl (81.0-99.0); MEAN CORPUSCULAR HGB 28.7 pg (27.0-31.0); MEAN CORPUSCULAR HGB CONC 30.3 g/dl (33.0-37.0); MEAN PLATELET VOLUME 12.3 fl (9.6-12.3); MONO # 1.4 10*3/uL (0.1-1.0); MONO % 8.4 % (3.0-9.0); NEUT % 79.2 % (47.0-73.0); PLATELET COUNT AUTOMATED 321 10*3/uL (130-400); RED BLOOD COUNT 4.71 10*6/uL (4.10-5.10); RED CELL DISTRI WIDTH 13.7 % (0-14.5); WHITE BLOOD COUNT 16.5 10*3/uL (4.8-10.8)
[2023-01-01 06:30] LABS: ALKALINE PHOSPHATASE 57 U/L (46-116); BUN 37 mg/dl (9-23); CHLORIDE 110 mmol/L (98-107); POTASSIUM 3.8 mmol/L (3.4-5.1); SGPT/ALT 24 U/L (10-49); TOTAL PROTEIN 6.8 gm/dL (6.0-8.0)
[2023-01-01 06:44] LABS: TOBRAMYCIN TROUGH 5.4 ug/mL (0-2.0)
[2023-01-01 08:00] VITALS: BP 152/90
[2023-01-01 12:00] VITALS: BP 137/67
[2023-01-01 16:00] VITALS: BP 138/71
[2023-01-01 20:00] VITALS: BP 133/75
[2023-01-02] VITALS: BP 125/83
[2023-01-02 08:00] VITALS: BP 138/80
[2023-01-02 12:00] VITALS: BP 150/85
[2023-01-02 16:00] VITALS: BP 144/95
[2023-01-02 20:00] VITALS: BP 146/93
[2023-01-03] VITALS: BP 153/90
[2023-01-03 08:00] VITALS: BP 115/75
[2023-01-03 12:00] VITALS: BP 127/78
[2023-01-03 16:00] VITALS: BP 128/76
[2023-01-03 19:58] LABS: BUN 34 mg/dl (9-23); CHLORIDE 112 mmol/L (98-107); POTASSIUM 3.5 mmol/L (3.4-5.1)
[2023-01-03 20:00] VITALS: BP 150/97
[2023-01-04] VITALS: BP 129/87
[2023-01-04 07:30] LABS: HEMATOCRIT 43.5 % (37.0-47.0); MEAN CELL VOLUME 96.7 fl (81.0-99.0); MEAN CORPUSCULAR HGB 28.7 pg (27.0-31.0); MEAN CORPUSCULAR HGB CONC 29.7 g/dl (33.0-37.0); MEAN PLATELET VOLUME 12.7 fl (9.6-12.3); PLATELET COUNT AUTOMATED 269 10*3/uL (130-400)
[2023-01-04 07:44] LABS: MANUAL DIFF REFLEX YES
[2023-01-04 08:00] VITALS: BP 123/65
[2023-01-04 08:08] LABS: BURR CELLS FEW; PLATELET SUFFICIENCY NORMAL (NORMAL); SCHISTOCYTES FEW; TOTAL CELLS COUNTED 100 #CELLS
[2023-01-04 11:28] LABS: BUN 34 mg/dl (9-23); CHLORIDE 114 mmol/L (98-107); POTASSIUM 3.7 mmol/L (3.4-5.1)
[2023-01-04 12:00] VITALS: BP 120/72
[2023-01-04 16:00] VITALS: BP 127/77
[2023-01-04 18:05] LABS: ABG BASE EXCESS 1.6 mmol/L (-2.0-2.0); ARTERIAL BLOOD GAS PH 7.398 (7.35-7.45); ARTERIAL BLOOD GAS PO2 43.4 (80-90)
[2023-01-04 19:11] LABS: HEMATOCRIT 46.6 % (37.0-47.0); MEAN CELL VOLUME 96.9 fl (81.0-99.0); MEAN CORPUSCULAR HGB 29.3 pg (27.0-31.0); MEAN CORPUSCULAR HGB CONC 30.3 g/dl (33.0-37.0); MEAN PLATELET VOLUME 12.6 fl (9.6-12.3); PLATELET COUNT AUTOMATED 323 10*3/uL (130-400); RED BLOOD COUNT 4.81 10*6/uL (4.10-5.10); RED CELL DISTRI WIDTH 14.2 % (0-14.5)
[2023-01-04 19:14] LABS: MANUAL DIFF REFLEX YES; WHITE BLOOD COUNT 50.8 10*3/uL (4.8-10.8)
[2023-01-04 19:25] LABS: POTASSIUM 4.3 mmol/L (3.4-5.1); TOTAL PROTEIN 7.3 gm/dL (6.0-8.0)
[2023-01-04 19:36] LABS: BASOPHILS 1 % (0-1); TOTAL CELLS COUNTED 100 #CELLS
[2023-01-04 19:39] LABS: BURR CELLS FEW; OVALOCYTES FEW; PLATELET SUFFICIENCY NORMAL (NORMAL)
[2023-01-04 19:40] LABS: ATYPICAL LYMPHS 1 % (0-0)
[2023-01-04 20:00] VITALS: BP 107/79
[2023-01-04 21:28] LABS: ARTERIAL BLOOD GAS PH 7.357 (7.35-7.45); ARTERIAL BLOOD GAS PO2 85.1 (80-90)
[2023-01-05] VITALS: BP 123/73
[2023-01-05 04:00] VITALS: BP 114/79
[2023-01-05 05:05] LABS: POTASSIUM 5.4 mmol/L (3.4-5.1)
[2023-01-05 07:01] LABS: HEMATOCRIT 44.2 % (37.0-47.0); MEAN CELL VOLUME 94.6 fl (81.0-99.0); MEAN CORPUSCULAR HGB 28.9 pg (27.0-31.0); MEAN CORPUSCULAR HGB CONC 30.5 g/dl (33.0-37.0); MEAN PLATELET VOLUME 12.8 fl (9.6-12.3); PLATELET COUNT AUTOMATED 277 10*3/uL (130-400); RED BLOOD COUNT 4.67 10*6/uL (4.10-5.10); RED CELL DISTRI WIDTH 14.3 % (0-14.5)
[2023-01-05 07:05] LABS: MANUAL DIFF REFLEX YES
[2023-01-05 07:06] LABS: WHITE BLOOD COUNT 50.5 10*3/uL (4.8-10.8)
[2023-01-05 07:40] LABS: BURR CELLS FEW; PLATELET SUFFICIENCY NORMAL (NORMAL); POLYCHROMASIA SLIGHT; TOTAL CELLS COUNTED 100 #CELLS; TOXIC GRANULATION SLIGHT; VACUOLATION OF NEUTROPHILS SLIGHT
[2023-01-05 07:41] LABS: SCHISTOCYTES FEW
[2023-01-05 08:00] VITALS: BP 117/74
[2023-01-05 12:00] VITALS: BP 115/78
[2023-01-05 16:00] VITALS: BP 112/80
[2023-01-05 20:00] VITALS: BP 96/70
[2023-01-05 22:49] LABS: BILIRUBIN Negative (Negative); BLOOD 3+ (Negative); CLARITY Turbid (Clear); COLOR Orange (Yellow); GLUCOSE Negative (Negative); KETONE Negative (Negative); LEUKO ESTERASE 3+ (Negative); NITRITE Negative (Negative); UROBILINOGEN 0.2 E.U./dl (0.0-1.0)
[2023-01-05 23:55] LABS: RBC TNTC rbc/hpf (0-2); WBC 31-40 wbc/hpf (0-5); YEAST 3+
[2023-01-05 23:56] LABS: BACTERIA 1+
[2023-01-06] VITALS: BP 106/74
[2023-01-06 04:00] VITALS: BP 94/65
[2023-01-06 05:37] LABS: TOTAL PROTEIN 6.2 gm/dL (6.0-8.0)
[2023-01-06 06:06] LABS: HEMATOCRIT 40.4 % (37.0-47.0); MEAN CELL VOLUME 95.3 fl (81.0-99.0); MEAN CORPUSCULAR HGB 28.5 pg (27.0-31.0); MEAN PLATELET VOLUME 13.8 fl (9.6-12.3); PLATELET COUNT AUTOMATED 258 10*3/uL (130-400); RED BLOOD COUNT 4.24 10*6/uL (4.10-5.10); RED CELL DISTRI WIDTH 14.5 % (0-14.5)
[2023-01-06 06:07] LABS: MANUAL DIFF REFLEX YES
[2023-01-06 06:08] LABS: WHITE BLOOD COUNT 44.1 10*3/uL (4.8-10.8)
[2023-01-06 06:25] LABS: POTASSIUM 4.1 mmol/L (3.4-5.1)
[2023-01-06 06:48] LABS: BURR CELLS MODERATE; PLATELET SUFFICIENCY NORMAL (NORMAL); POLYCHROMASIA SLIGHT; SCHISTOCYTES FEW; TOTAL CELLS COUNTED 100 #CELLS; TOXIC GRANULATION SLIGHT; VACUOLATION OF NEUTROPHILS SLIGHT
[2023-01-06 08:00] VITALS: BP 104/77
[2023-01-06 12:00] VITALS: BP 100/63
[2023-01-06 16:00] VITALS: BP 101/62
[2023-01-06 20:00] VITALS: BP 114/79
[2023-01-07] VITALS: BP 132/86
[2023-01-07 08:00] VITALS: BP 109/69
[2023-01-07 08:32] LABS: ABG BASE EXCESS -3.2 mmol/L (-2.0-2.0); ARTERIAL BLOOD GAS PH 7.349 (7.35-7.45); ARTERIAL BLOOD GAS PO2 65.8 (80-90)
[2023-01-07 12:00] VITALS: BP 127/73
[2023-01-07 13:24] LABS: HEMATOCRIT 37.5 % (37.0-47.0); MEAN CORPUSCULAR HGB CONC 31.7 g/dl (33.0-37.0); MEAN PLATELET VOLUME 13.5 fl (9.6-12.3); PLATELET COUNT AUTOMATED 267 10*3/uL (130-400); RED CELL DISTRI WIDTH 14.6 % (0-14.5); WHITE BLOOD COUNT 28.8 10*3/uL (4.8-10.8)
[2023-01-07 13:38] LABS: POTASSIUM 4.9 mmol/L (3.4-5.1); TOTAL PROTEIN 6.1 gm/dL (6.0-8.0)
[2023-01-07 13:46] LABS: MEAN CELL VOLUME 91.5 fl (81.0-99.0)
[2023-01-07 13:48] LABS: MANUAL DIFF REFLEX YES
[2023-01-07 13:49] LABS: PLATELET SUFFICIENCY NORMAL (NORMAL); TOTAL CELLS COUNTED 100 #CELLS
[2023-01-07 16:00] VITALS: BP 118/79
[2023-01-07 20:00] VITALS: BP 111/73
[2023-01-08] VITALS: BP 116/69
[2023-01-08 05:37] LABS: POTASSIUM 5.3 mmol/L (3.4-5.1); TOTAL PROTEIN 5.8 gm/dL (6.0-8.0)
[2023-01-08 06:21] LABS: HEMATOCRIT 40.4 % (37.0-47.0); MEAN CELL VOLUME 92.4 fl (81.0-99.0); MEAN CORPUSCULAR HGB 28.8 pg (27.0-31.0); MEAN CORPUSCULAR HGB CONC 31.2 g/dl (33.0-37.0); MEAN PLATELET VOLUME 13.5 fl (9.6-12.3); PLATELET COUNT AUTOMATED 253 10*3/uL (130-400); RED BLOOD COUNT 4.37 10*6/uL (4.10-5.10); RED CELL DISTRI WIDTH 14.7 % (0-14.5); WHITE BLOOD COUNT 23.3 10*3/uL (4.8-10.8)
[2023-01-08 06:23] LABS: MANUAL DIFF REFLEX YES
[2023-01-08 07:16] LABS: BURR CELLS FEW; OVALOCYTES FEW; PLATELET SUFFICIENCY NORMAL (NORMAL); POLYCHROMASIA SLIGHT; TOTAL CELLS COUNTED 100 #CELLS
[2023-01-08 07:17] LABS: ROULEAUX SLIGHT; TOXIC GRANULATION SLIGHT; VACUOLATION OF NEUTROPHILS SLIGHT
[2023-01-08 08:00] VITALS: BP 122/66
[2023-01-08 12:00] VITALS: BP 138/78
[2023-01-08 14:56] VITALS: BP 136/81
[2023-01-08 20:00] VITALS: BP 119/80
[2023-01-09] VITALS: BP 124/78
[2023-01-09 08:00] VITALS: BP 132/78
[2023-01-09 12:00] VITALS: BP 133/83
[2023-01-09 13:50] LABS: HEMATOCRIT 37.1 % (37.0-47.0); MEAN CELL VOLUME 91.2 fl (81.0-99.0); MEAN CORPUSCULAR HGB 28.7 pg (27.0-31.0); MEAN CORPUSCULAR HGB CONC 31.5 g/dl (33.0-37.0); MEAN PLATELET VOLUME 12.5 fl (9.6-12.3); PLATELET COUNT AUTOMATED 251 10*3/uL (130-400); RED BLOOD COUNT 4.07 10*6/uL (4.10-5.10); RED CELL DISTRI WIDTH 14.6 % (0-14.5); WHITE BLOOD COUNT 20.8 10*3/uL (4.8-10.8)
[2023-01-09 14:05] LABS: POTASSIUM 4.9 mmol/L (3.4-5.1); TOTAL PROTEIN 5.4 gm/dL (6.0-8.0)
[2023-01-09 14:07] LABS: MANUAL DIFF REFLEX YES
[2023-01-09 14:12] LABS: TOTAL CELLS COUNTED 100 #CELLS; TOXIC GRANULATION SLIGHT
[2023-01-09 14:13] LABS: ACANTHOCYTES FEW; BURR CELLS FEW; PLATELET SUFFICIENCY NORMAL (NORMAL); POLYCHROMASIA SLIGHT
[2023-01-09 16:00] VITALS: BP 148/84
[2023-01-09 20:00] VITALS: BP 130/81
[2023-01-10] VITALS: BP 126/73
[2023-01-10 06:57] LABS: HEMATOCRIT 36.1 % (37.0-47.0); MEAN CELL VOLUME 92.6 fl (81.0-99.0); MEAN CORPUSCULAR HGB 28.7 pg (27.0-31.0); MEAN PLATELET VOLUME 13.1 fl (9.6-12.3); PLATELET COUNT AUTOMATED 254 10*3/uL (130-400); RED CELL DISTRI WIDTH 14.8 % (0-14.5); WHITE BLOOD COUNT 16.4 10*3/uL (4.8-10.8)
[2023-01-10 07:03] LABS: MANUAL DIFF REFLEX YES
[2023-01-10 07:13] LABS: POTASSIUM 4.4 mmol/L (3.4-5.1)
[2023-01-10 08:00] VITALS: BP 140/90
[2023-01-10 08:13] LABS: BURR CELLS FEW; POLYCHROMASIA SLIGHT; TOTAL CELLS COUNTED 100 #CELLS
[2023-01-10 08:14] LABS: PLATELET SUFFICIENCY NORMAL (NORMAL); ROULEAUX SLIGHT; TOXIC GRANULATION SLIGHT
[2023-01-10 12:00] VITALS: BP 130/94
[2023-01-10 12:39] LABS: HEMATOCRIT 36.9 % (37.0-47.0); MEAN CELL VOLUME 92.3 fl (81.0-99.0); MEAN CORPUSCULAR HGB 28.8 pg (27.0-31.0); MEAN CORPUSCULAR HGB CONC 31.2 g/dl (33.0-37.0); MEAN PLATELET VOLUME 12.7 fl (9.6-12.3); PLATELET COUNT AUTOMATED 273 10*3/uL (130-400); RED CELL DISTRI WIDTH 14.7 % (0-14.5); WHITE BLOOD COUNT 16.7 10*3/uL (4.8-10.8)
[2023-01-10 12:50] LABS: POTASSIUM 4.6 mmol/L (3.4-5.1)
[2023-01-10 13:02] LABS: MANUAL DIFF REFLEX YES
[2023-01-10 13:04] LABS: BURR CELLS FEW; PLATELET SUFFICIENCY NORMAL (NORMAL); POLYCHROMASIA SLIGHT; TARGET CELLS FEW; TOTAL CELLS COUNTED 100 #CELLS; TOXIC GRANULATION SLIGHT
[2023-01-10 13:05] LABS: ROULEAUX SLIGHT
[2023-01-10 16:00] VITALS: BP 140/86
[2023-01-10 20:00] VITALS: BP 140/86
[2023-01-11] VITALS: BP 138/80
[2023-01-11 06:17] LABS: HEMATOCRIT 37.3 % (37.0-47.0); MEAN CELL VOLUME 94.4 fl (81.0-99.0); MEAN CORPUSCULAR HGB 28.4 pg (27.0-31.0); MEAN PLATELET VOLUME 12.8 fl (9.6-12.3); PLATELET COUNT AUTOMATED 264 10*3/uL (130-400); POTASSIUM 4.5 mmol/L (3.4-5.1); RED BLOOD COUNT 3.95 10*6/uL (4.10-5.10); RED CELL DISTRI WIDTH 14.8 % (0-14.5); WHITE BLOOD COUNT 16.7 10*3/uL (4.8-10.8)
[2023-01-11 06:26] LABS: MANUAL DIFF REFLEX YES
[2023-01-11 07:07] LABS: ATYPICAL LYMPHS 1 % (0-0); BURR CELLS FEW; OVALOCYTES FEW; PLATELET SUFFICIENCY NORMAL (NORMAL); POLYCHROMASIA SLIGHT; ROULEAUX SLIGHT; SCHISTOCYTES FEW; TOTAL CELLS COUNTED 100 #CELLS; TOXIC GRANULATION SLIGHT
[2023-01-11 08:00] VITALS: BP 136/69
[2023-01-11 12:00] VITALS: BP 132/65
[2023-01-11 16:00] VITALS: BP 140/87
[2023-01-11 20:00] VITALS: BP 125/82
[2023-01-12] VITALS: BP 150/94
[2023-01-12 05:41] LABS: ALKALINE PHOSPHATASE 64 U/L (46-116); BUN 118 mg/dl (9-23); CHLORIDE 109 mmol/L (98-107); CPK 40 U/L (34-171); POTASSIUM 4.4 mmol/L (3.4-5.1); TOTAL PROTEIN 5.3 gm/dL (6.0-8.0)
[2023-01-12 05:49] LABS: SGPT/ALT < 7 U/L (10-49)
[2023-01-12 06:22] LABS: HEMATOCRIT 34.8 % (37.0-47.0); MEAN CELL VOLUME 94.3 fl (81.0-99.0); MEAN CORPUSCULAR HGB 28.5 pg (27.0-31.0); MEAN CORPUSCULAR HGB CONC 30.2 g/dl (33.0-37.0); MEAN PLATELET VOLUME 12.7 fl (9.6-12.3); PLATELET COUNT AUTOMATED 281 10*3/uL (130-400); RED BLOOD COUNT 3.69 10*6/uL (4.10-5.10); RED CELL DISTRI WIDTH 14.9 % (0-14.5); WHITE BLOOD COUNT 22.8 10*3/uL (4.8-10.8)
[2023-01-12 06:29] LABS: MANUAL DIFF REFLEX YES
[2023-01-12 07:13] LABS: TOTAL CELLS COUNTED 100 #CELLS
[2023-01-12 07:14] LABS: BURR CELLS FEW; PLATELET SUFFICIENCY NORMAL (NORMAL); ROULEAUX SLIGHT
[2023-01-12 08:00] VITALS: BP 147/87
[2023-01-12 12:00] VITALS: BP 114/88
[2023-01-12 16:00] VITALS: BP 146/88
[2023-01-12 20:00] VITALS: BP 135/84
[2023-01-13] VITALS: BP 134/85
[2023-01-13 05:45] LABS: ALKALINE PHOSPHATASE 73 U/L (46-116); CHLORIDE 108 mmol/L (98-107); POTASSIUM 4.9 mmol/L (3.4-5.1); TOTAL PROTEIN 5.6 gm/dL (6.0-8.0)
[2023-01-13 06:26] LABS: BUN 78 mg/dl (9-23); SGPT/ALT < 7 U/L (10-49)
[2023-01-13 08:00] VITALS: BP 126/82
[2023-01-13 12:00] VITALS: BP 143/88
[2023-01-13 16:00] VITALS: BP 130/89
[2023-01-13 20:00] VITALS: BP 144/89
[2023-01-14] VITALS: BP 110/80
[2023-01-14 08:00] VITALS: BP 137/97
[2023-01-14 08:02] LABS: ALKALINE PHOSPHATASE 83 U/L (46-116); CHLORIDE 106 mmol/L (98-107); CPK 37 U/L (34-171); POTASSIUM 4.9 mmol/L (3.4-5.1); TOTAL PROTEIN 5.9 gm/dL (6.0-8.0)
[2023-01-14 08:07] LABS: BUN 120 mg/dl (9-23)
[2023-01-14 08:08] LABS: SGPT/ALT < 7 U/L (10-49)
[2023-01-14 12:00] VITALS: BP 103/73; BP 135/86
== END 2023-01-14 15:52 | DRG 871 ==
LOC: ED 09:47 → 5E 11:37 → 4E 11:37 → ICCU 11:37 → EDHOLD 11:37 → 4E 13:55 → 5E 14:02 → ICCU 01-04 19:12 → 4E 01-06 17:28
PROVIDERS: Emergency Medicine; Internal Medicine; Internal Medicine Critical Care Medicine; Internal Medicine Infectious Disease; Internal Medicine Nephrology; ADMIT Internal Medicine; ATTEND Internal Medicine
PROC: 0S9C3ZZ Drainage of Right Knee Joint, Percutaneous Approach (ICD-10-PCS; 2023-01-01)
PROC: 5A09557 Assistance with Respiratory Ventilation, Greater than 96 Consecutive Hours, Continuous Positive Airway Pressure (ICD-10-PCS; principal; 2023-01-04)
DX: A41.51 Sepsis due to Escherichia coli [E. coli] (principal); E43 Unspecified severe protein-calorie malnutrition; G93.41 Metabolic encephalopathy; J96.21 Acute and chronic respiratory failure with hypoxia; J69.0 Pneumonitis due to inhalation of food and vomit; N17.0 Acute kidney failure with tubular necrosis; N39.0 Urinary tract infection, site not specified; G45.9 Transient cerebral ischemic attack, unspecified; E87.0 Hyperosmolality and hypernatremia; N12 Tubulo-interstitial nephritis, not specified as acute or chronic; E87.6 Hypokalemia; R65.20 Severe sepsis without septic shock; Z66 Do not resuscitate; K21.9 Gastro-esophageal reflux disease without esophagitis; Z51.5 Encounter for palliative care; E11.43 Type 2 diabetes mellitus with diabetic autonomic (poly)neuropathy; M17.11 Unilateral primary osteoarthritis, right knee; R26.2 Difficulty in walking, not elsewhere classified; K31.84 Gastroparesis; E04.1 Nontoxic single thyroid nodule; E83.52 Hypercalcemia; L89.322 Pressure ulcer of left buttock, stage 2; R41.9 Unspecified symptoms and signs involving cognitive functions and awareness; I08.1 Rheumatic disorders of both mitral and tricuspid valves; E11.22 Type 2 diabetes mellitus with diabetic chronic kidney disease; L89.316 Pressure-induced deep tissue damage of right buttock; R62.7 Adult failure to thrive; N18.30 Chronic kidney disease, stage 3 unspecified; I12.9 Hypertensive chronic kidney disease with stage 1 through stage 4 chronic kidney disease, or unspecified chronic kidney disease; R53.81 Other malaise; Z68.30 Body mass index [BMI] 30.0-30.9, adult; Z87.891 Personal history of nicotine dependence; Z90.710 Acquired absence of both cervix and uterus; Z82.5 Family history of asthma and other chronic lower respiratory diseases; Z83.3 Family history of diabetes mellitus; I69.320 Aphasia following cerebral infarction; Z88.6 Allergy status to analgesic agent; Z88.8 Allergy status to other drugs, medicaments and biological substances; Z79.899 Other long term (current) drug therapy